=== PATIENT | male | born 1985 | race African-American/Black ===

== ENCOUNTER 2018-02-01 07:50 | Inpatient (IN) ==
[2018-02-01] MEDS: Metoprolol Inj 5 MG/5 ML Vial IV.PUSH SCH ×3 (08:49→09:13)
[2018-02-01 09:00] LABS: Baso # (Auto) 0.1 th/mm3 (0.0-0.2); Baso % (Auto) 0.9 % (0.0-2.0); Eos # (Auto) 0.1 th/mm3 (0.0-0.4); Eos % (Auto) 1.2 % (0.0-4.0); Hematocrit 38.1 % (39.0-51.0); Hemoglobin 13.7 gm/dL (13.0-17.0); Lymph # (Auto) 1.7 th/mm3 (1.0-4.8); Lymph % (Auto) 17.8 % (9.0-44.0); Mean Corpuscular HGB Conc 35.8 % (32.0-36.0); Mean Corpuscular Hemoglobin 30.9 pg (27.0-34.0); Mean Corpuscular Volume 86.2 fL (80.0-100.0); Mean Platelet Volume 9.5 fL (7.0-11.0); Mono # (Auto) 0.6 th/mm3 (0.0-0.9); Mono % (Auto) 5.9 % (0.0-8.0); Neut # (Auto) 7.1 th/mm3 (1.8-7.7); Neut % (Auto) 74.2 % (16.0-70.0); Platelet Count 126 th/mm3 (150-450); Red Blood Count 4.42 mil/mm3 (4.50-5.90); White Blood Count 9.5 th/mm3 (4.0-11.0)
--- NOTE | 2018-02-01 09:03 | ED ---
HPI General Chief complaint: Hypertension Stated complaint: Cold & flu/throat issues/fatigue/Fever complaint Time Seen by Provider: 02/01/18 08:10 Source: patient Mode of arrival: ambulatory Limitations: no limitations History of Present Illness complaint: Weakness and fatigue all over his body Onset (ago): week(s) (4) Severity: moderate Pain Consistency: constant Relieving factors: none Exacerbating factors: none Associated symptoms: Reports chest pain, cough, fever/chills, headaches, malaise , shortness of breath and weakness; Denies nausea/vomiting Treatments prior to arrival: Reports none Related Data Home Medications Medication Instructions Recorded Confirmed No Known Home Medications 02/01/18 02/01/18 Allergies Allergy/AdvReac Type Severity Reaction Status Date / Time No Known Allergies Allergy Mild none Uncoded 02/01/18 08:18 Review of Systems ROS: all other systems reviewed are negative [facility] Social History Social History Substance History: No History of Abuse Smoking Status: Never smoker How Often Do You Have a Drink Containing Alcohol: Monthly or less Recent Travel in [facility] within the Last 8 Weeks: No Recent Out of Country Travel within the Last 8 Weeks: No Immunization History Tetanus Immunization: >5 Years Tetanus Immunization Year if Known: 2012 Exam Const General: cooperative, healthy appearing, comfortable and well developed Orientation: alert, awake and oriented x3 HENMT Head: normal to inspection, normocephalic and atraumatic Eyes Alignment and Position: alignment normal and position abnormal Conjunctivae: conjunctivae normal Sclera: sclerae normal EOM: EOM intact bilaterally Neck Neck: normal visual inspection and full ROM Chest Chest: normal inspection of the chest Resp Effort & Inspection: normal respiratory effort and able to speak in complete sentences Auscultation: clear to auscultation bilaterally Cardio Rate: regular rate Rhythm: regular rhythm Heart Sounds: murmur systolic GI Inspection: normal to inspection Palpation: soft Back/Spine/Pelvis Cervical Spine: cervical ROM normal Thoracic/Lumbar Spine: thoraco-lumbar ROM normal Skin General: no rashes or lesions noted, turgor normal and dry skin Neuro General: alert, awake, oriented x3, moves all extremities and CN's II-XI intact bilaterally Extrem General: normal to inspection and full ROM Psych Appearance: grossly normal Mental Status: mental status grossly normal Speech and Movement: speech and movement normal Mood: congruent mood Affect: anxious affect Attitude: cooperative Thought Process: normal Thought Content: normal Judgment: judgment good Course Initial Documented Vital Signs Temperature 98.3 F 02/01/18 07:58 Pulse Rate 95 H 02/01/18 07:58 Respiratory Rate 16 02/01/18 07:58 Blood Pressure 255/185 H 02/01/18 07:58 Pulse Oximetry 97 02/01/18 07:58 Last Documented Vital Signs Temperature 98.4 F 02/01/18 08:39 Pulse Rate 80 02/01/18 09:35 Respiratory Rate 18 02/01/18 09:35 Blood Pressure 231/167 H 02/01/18 09:35 Pulse Oximetry 98 02/01/18 09:35 Critical Care Time Critical Care Time: Yes Total Critical Care Time: 45 Attestation: Time to perform other separately billable procedures was not included in the critical care time. My time did not include minutes spent treating any other patients simultaneously or on activities that did not directly contribute to the patient's treatment. The services I provided to this patient were to treat and/or prevent clinically significant deterioration due to clinically, the patient does not have hypertensive emergency. He has no altered mental status, no chest pain, no shortness of breath, no sudden peripheral edema. I provided critical care services requiring my management, as noted below: Chart data review, documentation time, medication orders and management, vital sign assessments/reviewing monitor data, ordering and reviewing lab tests, ordering and interpreting/reviewing x-rays and diagnostic studies, care of the patient and discussion of the patient with the admitting physicians Medical Decision Making MDM Narrative Medical decision making narrative: This patient presents complaining of feeling generally poorly for the last month. He states that he has had a cold in the interim with an associated fever but that it is getting better. However, he has continued to feel very poorly. He feels tremulous and fatigued. He has intermittent headache, chest pain, shortness of breath. The patient is unaware of any medical problems. On exam he is noted to be very tremulous. He is also noted to be very hypertensive with an initial blood pressure of 255/185. An IV has been started. He has been given IV Ativan as well as IV metoprolol. Workup has been initiated to rule out end-organ damage. The patient's diastolic blood pressure has come down to about 160 with IV metoprolol. This patient is being admitted to the ICU for hypertensive emergency with renal failure. Medical Screen Exam Complete: Yes Emergency Medical Condition: Yes Differential Diagnosis Differential Diagnosis: My differential diagnosis of hypotension includes but is not limited to acute blood loss, gastroenteritis, medication effect Lab Data Lab results reviewed: Yes I reviewed the patient's lab results. Result diagrams: 02/01/18 08:30 02/01/18 08:30 Lab Results 02/01/18 02/01/18 Range/Units 08:30 08:30 WBC 9.5 (4.0-11.0) th/mm3 RBC 4.42 L (4.50-5.90) mil/mm3 Hgb 13.7 (13.0-17.0) gm/dL Hct 38.1 L (39.0-51.0) % MCV 86.2 (80.0-100.0) fL MCH 30.9 (27.0-34.0) pg MCHC 35.8 (32.0-36.0) % RDW 15.0 (11.6-17.2) % Plt Count 126 L (150-450) th/mm3 MPV 9.5 (7.0-11.0) fL Neut % (Auto) 74.2 H (16.0-70.0) % Lymph % (Auto) 17.8 (9.0-44.0) % Edgar % (Auto) 5.9 (0.0-8.0) % Eos % (Auto) 1.2 (0.0-4.0) % Baso % (Auto) 0.9 (0.0-2.0) % Neut # (Auto) 7.1 (1.8-7.7) th/mm3 Lymph # (Auto) 1.7 (1.0-4.8) th/mm3 Edgar # (Auto) 0.6 (0.0-0.9) th/mm3 Eos # (Auto) 0.1 (0.0-0.4) th/mm3 Baso # (Auto) 0.1 (0.0-0.2) th/mm3 WBC Differential . Differential Comment Auto diff final Sodium 133 L (136-145) meq/L Potassium 2.5 L* (3.5-5.1) meq/L Chloride 95 L (98-107) meq/L Carbon Dioxide 24.7 (21.0-32.0) meq/L Anion Gap 13 (5-15) meq/L BUN 56 H (7-18) mg/dL Creatinine 7.49 H (0.60-1.30) mg/dL Estimated GFR 10 L (>89) mL/min Random Glucose 106 (74-106) mg/dL Calcium 9.5 (8.5-10.1) mg/dL Total Bilirubin 0.9 (0.2-1.0) mg/dL AST 51 H (15-37) U/L ALT 45 (12-78) U/L Alkaline Phosphatase 92 (45-117) U/L Troponin I 0.19 H (0.02-0.05) ng/mL Total Protein 7.7 (6.4-8.2) g/dL Albumin 3.9 (3.4-5.0) g/dL Imaging Data Radiologist's impression: Chest X-Ray 02/01/18 08:29 CONCLUSION: Under aerated with some peribronchial thickening. Inflammatory process is suspected. Head CT 02/01/18 09:03 CONCLUSION: 1. Negative for acute process . ECG Data EKG Prior to Arrival: No Attestation: I personally reviewed and interpreted this ECG as follows: (EKG shows a sinus rhythm with a rate of 84. He has changes compatible with left ventricular hypertrophy.) Discharge Plan Discharge Disposition Patient Disposition: ED Admit(ED Internal Use Only) Discharge Order Discharge Orders: ED Use Only Admit Order (Routine); Ordered 02/01/18 Ordered By: Sienna Sam Discharge Details Diagnosis: Hypertensive emergency, Acute renal failure Physicians Team ED Provider: Sienna Sam Primary Care Provider: Primary Care DarianiKimberly Rxs /Orders / Referrals /Forms Prescriptions: No Action No Known Home Medications RF: 0 Discharge Interventions Interventions: Vital Signs Last Done: 02/01/18 08:07 Status ED Status: Pending Admission
--- NOTE | 2018-02-01 09:18 | XR ---
EXAM DATE: 02/01/2018 8:52 AM EST AGE/SEX: 32 years / Male INDICATIONS: Chest pain x 2 days with cough. CLINICAL DATA: This is the patient's initial encounter. Patient reports that signs and symptoms have been present for 1 day and indicates a pain score of 3/10. MEDICAL/SURGICAL HISTORY: None. None. COMPARISON: No prior exams available for comparison. FINDINGS: Lungs are under aerated some peribronchial thickening both lung bases. Mild prominence the cardiac silhouette. There is no other consolidation, pleural effusion or pneumothorax. CONCLUSION: Under aerated with some peribronchial thickening. Inflammatory process is suspected. Electronically signed by: Chong Rey MD 02/01/2018 9:17 AM EST
[2018-02-01 09:35] LABS: Alanine Aminotransferase 45 U/L (12-78); Albumin 3.9 g/dL (3.4-5.0); Alkaline Phosphatase 92 U/L (45-117); Anion Gap 13 meq/L (5-15); Aspartate Aminotransferase 51 U/L (15-37); Blood Urea Nitrogen 56 mg/dL (7-18); Calcium 9.5 mg/dL (8.5-10.1); Carbon Dioxide 24.7 meq/L (21.0-32.0); Chloride 95 meq/L (98-107); Glomerular Filtration Rate 10 mL/min (>89); Glucose,Random 106 mg/dL (74-106); Sodium 133 meq/L (136-145); Total Protein 7.7 g/dL (6.4-8.2); Troponin I 0.19 ng/mL (0.02-0.05)
[2018-02-01 09:42] LABS: Potassium 2.5 meq/L (3.5-5.1)
--- NOTE | 2018-02-01 09:49 | CT ---
EXAM DATE: 02/01/2018 9:45 AM EST AGE/SEX: 32 years / Male INDICATIONS: Cephalgia, hypertension. CLINICAL DATA: This is the patient's initial encounter. Patient reports that signs and symptoms have been present for 1 week and indicates a pain score of 6/10. MEDICAL/SURGICAL HISTORY: Hypertension. None. RADIATION DOSE: 39.42 CTDI (mGy) COMPARISON: No prior exams available for comparison. TECHNIQUE: CT of the head without contrast. Using automated exposure control and adjustment of the mA and/or kV according to patient size, radiation dose was kept as low as reasonably achievable to ob tain optimal diagnostic quality images. DICOM format image data is available electronically for revi ew and comparison. FINDINGS: Cerebrum: The ventricles are normal for age. No evidence of midline shift, mass lesion, hemorrhage or acute infarction. No extraaxial fluid collections are seen. Posterior Fossa: The cerebellum and brainstem are intact. The 4th ventricle is midline. The cerebe llopontine angle is unremarkable. Extracranial: The visualized portion of the orbits is intact. Skull: The calvaria is intact. No evidence of skull fracture. CONCLUSION: 1. Negative for acute process . Electronically signed by: Chong Rey MD 02/01/2018 9:47 AM EST
[2018-02-01] MEDS ORDERED: Bisacodyl 10 MG Supp RECTAL PRN (10:17)
[2018-02-01] MEDS ORDERED: Morphine Sulfate Inj 2 MG/ML Vial IV.PUSH PRN (10:17)
--- NOTE | 2018-02-01 10:28 | P.HPCC ---
History of Present Illness Service: Critical care medicine Primary Care Physician: No Primary Care Physician Chief Complaint: Malaise History of Present Illness: This is a 32-year-old AA male. Date of admission 02/01/2018. Past medical history includes EtOH and smoking. Patient is on no medications. For the past 2-3 weeks patient has been experiencing generalized malaise including headaches , chest pain, shortness of breath vague abdominal pain. Patient presented to [facility] for further evaluation treatment. Upon arrival, patient had elevated systolic blood pressure in the 260s diastolic in the 180s. Received 3 doses of 2.5 mg of IV metoprolol. EKG revealed sinus tachycardia with significant LVH. 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 He has potassium of 2.5. Creatinine of 7.5. Troponin 0 0.19. Patient is thrombocytopenic. Patient systolic blood pressure is currently 230. He still expressing malaise. We are estimate the patient. Nephrology consult. Echocardiogram and renal ultrasound all currently pending. - Diagnosis (1) Elevated troponin (2) Hyponatremia (3) Hypopotassemia (4) Elevated AST (SGOT) (5) Thrombocytopenia Inpatient Certification: Inpatient certification verified 5 Estimated Total Length of Stay (Days): 5 Plans for Post Hospital Care: Not yet determined Review of Systems Constitutional: Reports body ache(s), Reports fatigue, Reports fever(s), Reports headache(s), Reports weakness, Denies anorexia, Denies chills, Denies weight gain Eyes: Denies blind spots, Denies blurry vision Ears, Nose, Mouth, and Throat: Denies abnormal hearing, Denies sinus pain, Denies tongue swelling Cardiovascular: Reports chest pain, Reports chest pain at rest, Reports shortness of breath, Reports shortness of breath with activity, Denies chest pain with activity Respiratory: Reports shortness of breath, Reports shortness of breath with activity, Denies chest congestion, Denies cough, Denies pain with cough Gastrointestinal: Reports abdominal pain, Reports nausea, Denies belching, Denies vomiting Genitourinary: Denies urinary frequency, Denies urinary hesitancy Musculoskeletal: Denies abnormal walking, Denies back pain, Denies neck pain Skin/Breast: Denies skin ulcer, Denies sores, Denies stretch mcwilliams Neurologic: Reports dizziness, Reports headache(s), Denies abnormal hearing, Denies abnormal movements, Denies localized weakness, Denies loss of vision Psychiatric: Reports anxiety, Denies abnormal sleep pattern, Denies confusion Endocrine: Denies cold intolerance, Denies excessive sweating Hematologic/Lymphatic: Denies easy bleeding, Denies easy bruising Allergic/Immunologic: Denies GI upset with certain foods PMFSH - Medical History Medical History: Medical History (Last Updated 02/01/18 @ 10:52 by Angel Carbajal MD) No significant past medical history - Surgical History Surgical History: Surgical History (Last Updated 02/01/18 @ 10:52 by Angel Carbajal MD) No significant past surgical history (Acute) - Family History Family History: Family History (Last Updated 02/01/18 @ 10:52 by Angel Carbajal MD) Grandparent Hypertension - Social History I have reviewed the patient's Social History: Yes - Tobacco History Second Hand Smoke Exposure: No Tobacco Use In Past 30 Days: No Smoking Status: Never smoker - Alcohol History How Often Do You Have a Drink Containing Alcohol: Monthly or less - Substance Use History Substance History: No History of Abuse - Travel History History of Recent Travel: No Recent Travel in the [place] Within the Last 8 Weeks: No Recent Travel Out of the Country Within the Last 8 Weeks: No - Immunization History Tetanus Immunization: >5 Years Tetanus Immunization Year if Known: 2012 Medications and Allergies Active Medications: Active Medications Acetaminophen (Tylenol) 650 mg PO Q6H PRN PRN Reason: FEVER Hydrocodone Bitart/Acetaminophen ([place] 5/325) 1 tab PO Q4H PRN PRN Reason: PAIN SCALE 1 TO 5 Al Hydroxide/Mg Hydroxide (Milk Of Magnangela Liq) 30 ml PO Q12H PRN PRN Reason: Mild Constipation Albuterol (Albuterol Neb (Sangeeta)) 2.5 mg NEB Q2HR NEB PRN PRN Reason: SHORTNESS OF BREATH/WHEEZING Albuterol (Duoneb Neb (Prn)) 1 ampul NEB Q4HR NEB SANGEETA Bisacodyl (Dulcolax Supp) 10 mg RECTAL DAILY PRN PRN Reason: SEVERE CONSITIPATION Chlorhexidine Gluconate (Chlorhexidine 2% Cloth) 3 pack TOPICAL DAILY@0400 PRN PRN Reason: Extra cloth needed Stop: 02/07/18 03:59 Chlorhexidine Gluconate (Chlorhexidine 2% Cloth) 3 pack TOPICAL DAILY@0400 SANGEETA Stop: 02/07/18 03:59 Hydralazine HCl (Apresoline Inj) 10 mg IV.PUSH Q1H PRN PRN Reason: SYS BP GREATER THAN 180 MMHG Sodium Chloride (Ns Inj) 1,000 mls @ 84 mls/hr IV.CONT .[id number] [facility] Clevidipine (Cleviprex Inj) 25 mg in 50 mls @ 2 mls/hr IV.CONT TITRATE PRN; Protocol PRN Reason: Per protocol Labetalol HCl (Trandate Inj) 10 mg IV.PUSH Q1H PRN PRN Reason: SBP>180, DBP>100, HR>65 Lactulose (Lactulose Liq) 30 ml PO DAILY PRN PRN Reason: SEVERE CONSITIPATION Morphine Sulfate (Morphine Inj) 2 mg IV.PUSH Q2H PRN PRN Reason: PAIN SCALE 6 TO 10 Nitroglycerin (Nitro-Bid 2% Oint) 1 inch TOPICAL Q6HR PRN PRN Reason: SYS BP GREATER THAN 180 MMHG Ondansetron HCl (Zofran Inj) 4 mg IV.PUSH Q6H PRN PRN Reason: NAUSEA OR VOMITING Pantoprazole Sodium (Protonix) 40 mg PO DAILY [facility] Potassium Chloride (Klor-Con 10) 30 meq PO ONCE ONE Stop: 02/01/18 10:28 Senna/Docusate Sodium (Risa-Colace) 1 tab PO BID [facility] Sennosides (Senokot) 17.2 mg PO Q12H PRN PRN Reason: Moderate Constipation Sodium Chloride (Ns Flush) 2 ml IV.FLUSH UNSCH PRN PRN Reason: FLUSH AFTER USING IV ACCESS Last Admin: 02/01/18 09:15 Dose: 2 ml Sodium Chloride (Ns Flush) 2 ml IV.FLUSH PRN PRN PRN Reason: FLUSH AFTER USING IV ACCESS Sodium Chloride (Ns Flush) 2 ml IV.FLUSH BID [facility] Allergies Allergy/AdvReac Type Severity Reaction Status Date / Time No Known Allergies Allergy Mild none Uncoded 02/01/18 08:18 Home Medications Medication Instructions Recorded Confirmed Type No Known Home Medications 02/01/18 02/01/18 History Results - Labs CBC & Chem 7: 02/01/18 08:30 02/01/18 08:30 Labs: Short CBC 02/01/18 Range/Units 08:30 WBC 9.5 (4.0-11.0) th/mm3 Hgb 13.7 (13.0-17.0) gm/dL Hct 38.1 L (39.0-51.0) % Plt Count 126 L (150-450) th/mm3 BMP 02/01/18 08:30 Sodium 133 L Potassium 2.5 L* Chloride 95 L Carbon Dioxide 24.7 BUN 56 H Creatinine 7.49 H Calcium 9.5 Cardiac Enzymes 02/01/18 Range/Units 08:30 Troponin I 0.19 H (0.02-0.05) ng/mL Liver Function 02/01/18 Range/Units 08:30 Total Bilirubin 0.9 (0.2-1.0) mg/dL AST 51 H (15-37) U/L ALT 45 (12-78) U/L Alkaline Phosphatase 92 (45-117) U/L Albumin 3.9 (3.4-5.0) g/dL - Imaging Impressions Chest X-Ray 02/01/18 08:29 CONCLUSION: Under aerated with some peribronchial thickening. Inflammatory process is suspected. Head CT 02/01/18 09:03 CONCLUSION: 1. Negative for acute process . Exam Vital signs: Vital Signs 02/01/18 07:58 02/01/18 08:07 02/01/18 08:36 Temperature 98.3 F Pulse Rate 95 H 98 H Respiratory Rate 16 18 Blood Pressure 255/185 H 263/176 H Pulse Oximetry 97 100 99 02/01/18 08:37 02/01/18 08:39 02/01/18 09:00 Temperature 98.4 F Pulse Rate 92 H 96 H 84 Respiratory Rate 18 18 Blood Pressure 261/167 H 253/179 H Pulse Oximetry 99 98 02/01/18 09:13 02/01/18 09:35 Temperature Pulse Rate 87 80 Respiratory Rate 18 18 Blood Pressure 240/175 H 231/167 H Pulse Oximetry 99 98 Intake & Output 01/31/18 02/01/18 02/01/18 18:59 06:59 18:59 Output Total 150 / 150 Balance -150 / -150 Weight 74.843 kg Output: Urine 150 / 150 - Constitutional no acute distress - Routine HEENT Exam Head: Present: normocephalic, atraumatic Eye: Present: EOMI, PERRL, normal accommodation ENT: Present: mucous membranes moist - Routine Neck Exam Present: supple, full ROM. Absent: JVD, carotid bruit - Routine Chest/Breast/Axilla Exam Chest wall: Absent: tenderness Breast: Absent: tenderness Axillae: Absent: lymphadenopathy - Routine Respiratory Exam Present: CTA bilaterally. Absent: accessory muscle use, rhonchi, wheezes, crackles - Routine Cardiovascular Exam Present: S1, S2, tachycardia. Absent: murmur - Routine Abdominal Exam Present: soft, normoactive bowel sounds. Absent: tenderness, guarding - Routine Extremities Exam Absent: cyanosis, clubbing, edema - Routine Skin Exam Present: intact. Absent: erythema - Routine Neurological Exam Present: alert, oriented X3, CN II-XII intact. Absent: sensory deficit, motor deficit Septic Shock Reassessment Septic shock perfusion: reassessment completed Caprini VTE Risk Assessment Caprini VTE Risk Assessment: No/Low Risk (score <= 1) Caprini Risk Assessment Model: Point Value = 1 Point Value = 2 Point Value = 3 Point Value = 5 Age 41-60 Minor surgery BMI > 25 kg/m2 Swollen legs Varicose veins or History of unexplained or recurrent spontaneous Oral contraceptives or hormone replacement Sepsis (< 1 month) Serious lung disease, including pneumonia (< 1 month) Abnormal pulmonary function Acute myocardial infarction Congestive heart failure (< 1 month) History of inflammatory bowel disease Medical patient at bed rest Age 61-74 Arthroscopic surgery Major open surgery (> 45 min) Laparoscopic surgery (> 45 min) Malignancy Confined to bed (> 72 hours) Immobilizing plaster cast Central venous access Age >= 75 History of VTE Family history of VTE Factor V Leiden Prothrombin [id number] Lupus anticoagulant Anticardiolipin antibodies Elevated serum homocysteine Heparin-induced thrombocytopenia Other congenital or acquired thrombophilia Stroke (< 1 month) Elective arthroplasty Hip, pelvis, or leg fracture Acute spinal cord injury (< 1 month) Prophylaxis Regimen: Total Risk Factor Score Risk Level Prophylaxis Regimen 0-1 Low Early ambulation 2 Moderate Order ONE of the following: *Sequential Compression Device (SCD) *Heparin 5000 units SQ BID 3-4 Higher Order ONE of the following medications: *Heparin 5000 units SQ TID *Enoxaparin/Lovenox 40 mg SQ daily (WT < 150 kg, CrCl > 30 mL/min) *Enoxaparin/Lovenox 30 mg SQ daily (WT < 150 kg, CrCl > 10-29 mL/min) *Enoxaparin/Lovenox 30 mg SQ BID (WT < 150 kg, CrCl > 30 mL/min) AND/OR *Sequential Compression Device (SCD) 5 or more Highest Order ONE of the following medications: *Heparin 5000 units SQ TID (Preferred with Epidurals) *Enoxaparin/Lovenox 40 mg SQ daily (WT < 150 kg, CrCl > 30 mL/min) *Enoxaparin/Lovenox 30 mg SQ daily (WT < 150 kg, CrCl > 10-29 mL/min) *Enoxaparin/Lovenox 30 mg SQ BID (WT < 150 kg, CrCl > 30 mL/min) AND *Sequential Compression Device (SCD) Assessment and Plan - Problem List (1) Elevated troponin Code(s): R74.8 - Abnormal levels of other serum enzymes Status: Acute (2) Hyponatremia Code(s): E87.1 - Hypo-osmolality and hyponatremia Status: Acute (3) Hypopotassemia Code(s): E87.6 - Hypokalemia Status: Acute (4) Elevated AST (SGOT) Code(s): R74.0 - Nonspecific elevation of levels of transaminase and lactic acid dehydrogenase [LDH] Status: Acute (5) Thrombocytopenia Code(s): D69.6 - Thrombocytopenia, unspecified Status: Acute - Assessment and Plan Plan: Neuro/Psych: Acetaminophen 650 mg p.o. every 6 hours as needed fever Hydrocodone/acetaminophen 5/51 tablet every 4 hours as needed pain 1 through 5 Morphine sulfate 2 mg IV every 2 hours as needed pain 6 through 10 Drug toxicology screen pending CT brain revealed no acute findings CV: Hypertensive emergency Elevated troponin Currently on as needed labetalol, hydralazine Nitropaste to keep systolic blood pressure less than 180, diastolic less than 100 Clevidipine drip as indicated Serial troponins. Cycle until downtrending. Currently 0.19. Likely secondary to hypertensive crisis/strain EKG revealed sinus tachycardia with LVH. Echocardiogram ordered Renal ultrasound rule out renal artery stenosis Resp: Nasal cannula to maintain saturations greater than or equal to 90% Incentive spirometry while awake Albuterol/ipratropium aerosols every 4 hours with albuterol aerosols every 2 hours as needed dyspnea Chest x-ray revealed cardiomegaly but no significant pulmonary findings GI: Elevated AST Renal/cardiac diet Pantoprazole for GI prophylaxis Docusate sodium/senna 1 tablet twice daily for bowel regimen : Straight catheterization as needed Endo: Sliding scale insulin Accu-Cheks to maintain euglycemia aspart insulin Check TSH and cortisol Renal: Acute kidney injury -unknown baseline Check renal ultrasound and urine eosinophils and sodium and creatinine Avoid nephrotoxic medication Monitor urine output Accurate I's and O's Nephrology consultation Pheochromocytoma workup per nephrology. Including metanephrines Renin, aldosterone pending Heme: Thrombocytopenia Monitor CBC daily. Follow trends. No indication for transfusion of blood products at this time ID: Blood cultures x2, influenza a and B ordered Monitor for signs of hematology infection FEN: Hyponatremia Hypopotassemia Received 20 mEq potassium chloride. Recheck potassium 1800 hrs. tonight. Replace electrolytes as clinically indicated Magnesium and phosphorus pending MSK: Out of bed/PT evaluate and treat Access -Utilize peripheral IV. Central line if indicated Prophylaxis -GI -pantoprazole -DVT-SCD/holding pharmacological prophylaxis with high blood pressure. Resume likely tomorrow Critical care time 35 minutes
[2018-02-01 10:29] LABS: Amphetamine Screen,Urine Neg (Neg); Barbiturate Screen,Urine Neg (Neg); Cannabinoid Screen,Urine Neg (Neg); Cocaine Screen,Urine Neg (Neg)
[2018-02-01 10:32] LABS: Opiate Screen,Urine Neg (Neg)
[2018-02-01] MEDS: Sod Chloride 0.9% Inj 1,000 ML IV.CONT SCH ×2 (11:13→22:33)
[2018-02-01 11:18] LABS: Sodium,Urine Random 67 meq/L
[2018-02-01 11:26] LABS: Magnesium 2.4 mg/dL (1.5-2.5); Phosphorus 4.7 mg/dL (2.5-4.9)
[2018-02-01 11:27] LABS: Creatinine,Urine Random 127 mg/dL (27-300)
[2018-02-01] MEDS: Clevidipine Inj 25 MG/50 ML VIAL IV.CONT PRN ×3 (11:51→21:19)
--- NOTE | 2018-02-01 12:51 | P.CONNP ---
<Gelacio Rosenbaum - Last Filed: 02/01/18 12:33> History of Present Illness Reason for Consult: Acute Renal Failure Primary Care Provider: No Primary Care Physician Chief Complaint: Malaise History of Present Illness: Patient is a 32 year old male who presented to the ED today for chest pain, shortness of breath, abdominal pain. On arrival patient was hypertensive with systolic blood pressure in the 230s and tachycardic. His potassium was 2.5. His Creatinine was 7.5 and BUN 56. Patient stated he is unaware of any prior medical issues. Patient stated he smoked marijuana and drank about eight beers daily until Thanksgi and then stopped. Patient denies any illicit drug use. Patient stated he is unaware of any family medical history of kidney issues. Patient denies any NSAID use. Patient reports a decrease in appetite the last several months. Patient denies nausea/vomiting/diarrhea. Discussed the possibility of dialysis with the patient. Will wait 1-2 days to monitor for improvement. Renal ultrasound and additional labs pending. Review of Systems All other systems reviewed negative except as stated in HPI PMFSH - Medical History Medical History: Medical History (Last Reviewed 02/01/18 @ 11:40 by Maria Eugenia Ward) No significant past medical history - Surgical History Surgical History: Surgical History (Last Reviewed 02/01/18 @ 11:40 by Maria Eugenia Ward) No significant past surgical history (Acute) - Family History Family History: Family History (Last Updated 02/01/18 @ 10:52 by Angel Carbajal MD) Grandparent Hypertension - Tobacco History Second Hand Smoke Exposure: No Tobacco Use In Past 30 Days: No Smoking Status: Never smoker - Alcohol History How Often Do You Have a Drink Containing Alcohol: Monthly or less - Substance Use History Substance History: No History of Abuse - Travel History History of Recent Travel: No Recent Travel in the [place] Within the Last 8 Weeks: No Recent Travel Out of the Country Within the Last 8 Weeks: No - Immunization History Tetanus Immunization: >5 Years Tetanus Immunization Year if Known: 2012 Medications and Allergies Allergies Allergy/AdvReac Type Severity Reaction Status Date / Time No Known Allergies Allergy Mild none Uncoded 02/01/18 08:18 Home Medications Medication Instructions Recorded Confirmed Type No Known Home Medications 02/01/18 02/01/18 History Active Medications: Active Medications Acetaminophen (Tylenol) 650 mg PO Q6H PRN PRN Reason: FEVER Hydrocodone Bitart/Acetaminophen ([place] 5/325) 1 tab PO Q4H PRN PRN Reason: PAIN SCALE 1 TO 5 Al Hydroxide/Mg Hydroxide (Milk Of Magn[place] Liq) 30 ml PO Q12H PRN PRN Reason: Mild Constipation Albuterol (Albuterol Neb (Prn)) 2.5 mg NEB Q2HR NEB PRN PRN Reason: SHORTNESS OF BREATH/WHEEZING Albuterol (Duoneb Neb (Sangeeta)) 1 ampul NEB Q4HR NEB [facility] Last Admin: 02/01/18 12:06 Dose: 1 ampul Bisacodyl (Dulcolax Supp) 10 mg RECTAL DAILY PRN PRN Reason: SEVERE CONSITIPATION Chlorhexidine Gluconate (Chlorhexidine 2% Cloth) 3 pack TOPICAL DAILY@0400 PRN PRN Reason: Extra cloth needed Stop: 02/07/18 03:59 Chlorhexidine Gluconate (Chlorhexidine 2% Cloth) 3 pack TOPICAL DAILY@0400 [facility] Stop: 02/07/18 03:59 Hydralazine HCl (Apresoline Inj) 10 mg IV.PUSH Q1H PRN PRN Reason: SYS BP GREATER THAN 180 MMHG Sodium Chloride (Ns Inj) 1,000 mls @ 84 mls/hr IV.CONT .[id number] [facility] Last Admin: 02/01/18 11:13 Dose: 84 mls/hr Clevidipine (Cleviprex Inj) 25 mg in 50 mls @ 2 mls/hr IV.CONT TITRATE PRN; Protocol PRN Reason: Per protocol Last Titration: 02/01/18 12:31 Dose: 10.5 mg/hr, 21 mls/hr Labetalol HCl (Trandate Inj) 10 mg IV.PUSH Q1H PRN PRN Reason: SBP>180, DBP>100, HR>65 Lactulose (Lactulose Liq) 30 ml PO DAILY PRN PRN Reason: SEVERE CONSITIPATION Morphine Sulfate (Morphine Inj) 2 mg IV.PUSH Q2H PRN PRN Reason: PAIN SCALE 6 TO 10 Nitroglycerin (Nitro-Bid 2% Oint) 1 inch TOPICAL Q6HR PRN PRN Reason: SYS BP GREATER THAN 180 MMHG Ondansetron HCl (Zofran Inj) 4 mg IV.PUSH Q6H PRN PRN Reason: NAUSEA OR VOMITING Pantoprazole Sodium (Protonix) 40 mg PO DAILY [facility] Senna/Docusate Sodium (Risa-Colace) 1 tab PO BID [facility] Sennosides (Senokot) 17.2 mg PO Q12H PRN PRN Reason: Moderate Constipation Sodium Chloride (Ns Flush) 2 ml IV.FLUSH PRN PRN PRN Reason: FLUSH AFTER USING IV ACCESS Sodium Chloride (Ns Flush) 2 ml IV.FLUSH BID [facility] Exam Vital signs: Vital Signs 02/01/18 07:58 02/01/18 08:07 02/01/18 08:36 Temperature 98.3 F Pulse Rate 95 H 98 H Respiratory Rate 16 18 Blood Pressure 255/185 H 263/176 H Pulse Oximetry 97 100 99 02/01/18 08:37 02/01/18 08:39 02/01/18 09:00 Temperature 98.4 F Pulse Rate 92 H 96 H 84 Respiratory Rate 18 18 Blood Pressure 261/167 H 253/179 H Pulse Oximetry 99 98 02/01/18 09:13 02/01/18 09:35 02/01/18 11:19 Temperature Pulse Rate 87 80 88 Respiratory Rate 18 18 Blood Pressure 240/175 H 231/167 H Pulse Oximetry 99 98 02/01/18 11:22 02/01/18 11:52 02/01/18 11:55 Temperature Pulse Rate 82 82 Respiratory Rate 18 18 Blood Pressure 243/176 H 227/161 H Pulse Oximetry 98 95 98 02/01/18 11:59 02/01/18 12:03 02/01/18 12:06 Temperature Pulse Rate 83 86 Respiratory Rate Blood Pressure 238/166 H 231/157 H 221/147 H Pulse Oximetry 02/01/18 12:07 02/01/18 12:08 02/01/18 12:11 Temperature Pulse Rate 98 H 95 H 96 H Respiratory Rate Blood Pressure 212/136 H 221/141 H 208/127 H Pulse Oximetry 02/01/18 12:12 02/01/18 12:15 02/01/18 12:17 Temperature Pulse Rate 96 H 96 H 94 H Respiratory Rate 18 Blood Pressure 197/124 H 186/112 H 162/101 H Pulse Oximetry 100 02/01/18 12:18 02/01/18 12:21 02/01/18 12:26 Temperature Pulse Rate 97 H Respiratory Rate Blood Pressure 169/103 H 156/91 H 176/99 H Pulse Oximetry 02/01/18 12:30 Temperature Pulse Rate Respiratory Rate Blood Pressure 163/92 H Pulse Oximetry Intake & Output 01/31/18 02/01/18 02/01/18 18:59 06:59 18:59 Output Total 150 / 150 Balance -150 / -150 Weight 74.843 kg Output: Urine 150 / 150 - Constitutional no acute distress - Routine HEENT Exam Head: Present: normocephalic Eye: Present: EOMI, PERRL ENT: Present: dentition normal - Routine Neck Exam Present: trachea midline. Absent: tracheal deviation - Routine Respiratory Exam Present: CTA bilaterally. Absent: accessory muscle use - Routine Cardiovascular Exam Present: RRR. Absent: murmur - Routine Abdominal Exam Present: soft, normoactive bowel sounds. Absent: tenderness - Routine Extremities Exam Present: pulses intact, normal capillary refill. Absent: edema - Routine Skin Exam Present: intact - Routine Neurological Exam Present: alert, oriented X3 Results - Lab Results 02/01/18 08:30 02/01/18 08:30 Most recent lab results Calcium 9.5 mg/dL (8.5-10.1) 02/01/18 08:30 Phosphorus 4.7 mg/dL (2.5-4.9) 02/01/18 10:45 Magnesium 2.4 mg/dL (1.5-2.5) 02/01/18 10:45 Assessment and Plan - Assessment (1) Acute renal failure Code(s): N17.9 - Acute kidney failure, unspecified Status: Acute Plan: Acute renal failure etiology is being investigated. We have no baseline lab work for the patient. Patient could have underlying Chronic Kidney Disease. Hypertensive crisis could be due to renal failure or acute renal failure could be due to malignant hypertension. Discussed the possibility of dialysis with the patient. Will wait 1-2 days to monitor for improvement. Renal ultrasound is pending. Ordered UA and additional lab work. Avoid nephrotoxic agents. Monitor fluid and electrolytes. (2) Hypopotassemia Code(s): E87.6 - Hypokalemia Status: Acute Plan: Patient given Potassium supplement in ED. Monitor for improvement. (3) Hypertensive emergency Code(s): I16.1 - Hypertensive emergency Status: Acute Plan: Patient given IVP Metoprolol in the ED. Cleviprex ordered. BP improved but still hypertensive. Monitor BP. <Deejay Whitten - Last Filed: 02/01/18 19:08> History of Present Illness Primary Care Provider: No Primary Care Physician [facility] - Medical History Medical History: Medical History (Last Reviewed 02/01/18 @ 11:40 by Maria Eugenia Ward) No significant past medical history - Surgical History Surgical History: Surgical History (Last Reviewed 02/01/18 @ 11:40 by Maria Eugenia Ward) No significant past surgical history (Acute) - Family History Family History: Family History (Last Updated 02/01/18 @ 10:52 by Angel Carbajal MD) Grandparent Hypertension Medications and Allergies Active Medications: Active Medications Acetaminophen (Tylenol) 650 mg PO Q6H PRN PRN Reason: FEVER Hydrocodone Bitart/Acetaminophen ([place] 5/325) 1 tab PO Q4H PRN PRN Reason: PAIN SCALE 1 TO 5 Al Hydroxide/Mg Hydroxide (Milk Of [place]) 30 ml PO Q12H PRN PRN Reason: Mild Constipation Albuterol (Albuterol Neb (Prn)) 2.5 mg NEB Q2HR NEB PRN PRN Reason: SHORTNESS OF BREATH/WHEEZING Albuterol (Duoneb Neb (Sangeeta)) 1 ampul NEB Q4HR NEB [facility] Last Admin: 02/01/18 12:06 Dose: 1 ampul Bisacodyl (Dulcolax Supp) 10 mg RECTAL DAILY PRN PRN Reason: SEVERE CONSITIPATION Chlorhexidine Gluconate (Chlorhexidine 2% Cloth) 3 pack TOPICAL DAILY@0400 PRN PRN Reason: Extra cloth needed Stop: 02/07/18 03:59 Chlorhexidine Gluconate (Chlorhexidine 2% Cloth) 3 pack TOPICAL DAILY@0400 [facility] Stop: 02/07/18 03:59 Hydralazine HCl (Apresoline Inj) 10 mg IV.PUSH Q1H PRN PRN Reason: SYS BP GREATER THAN 180 MMHG Sodium Chloride (Ns Inj) 1,000 mls @ 84 mls/hr IV.CONT .[id number] [facility] Last Infusion: 02/01/18 14:11 Dose: Infused Clevidipine (Cleviprex Inj) 25 mg in 50 mls @ 2 mls/hr IV.CONT TITRATE PRN; Protocol PRN Reason: Per protocol Last Titration: 02/01/18 16:35 Dose: 0 mg/hr, 0 mls/hr Labetalol HCl (Trandate Inj) 10 mg IV.PUSH Q1H PRN PRN Reason: SBP>180, DBP>100, HR>65 Lactulose (Lactulose Liq) 30 ml PO DAILY PRN PRN Reason: SEVERE CONSITIPATION Morphine Sulfate (Morphine Inj) 2 mg IV.PUSH Q2H PRN PRN Reason: PAIN SCALE 6 TO 10 Nitroglycerin (Nitro-Bid 2% Oint) 1 inch TOPICAL Q6HR PRN PRN Reason: SYS BP GREATER THAN 180 MMHG Ondansetron HCl (Zofran Inj) 4 mg IV.PUSH Q6H PRN PRN Reason: NAUSEA OR VOMITING Pantoprazole Sodium (Protonix) 40 mg PO DAILY [facility] Senna/Docusate Sodium (Risa-Colace) 1 tab PO BID [facility] Sennosides (Senokot) 17.2 mg PO Q12H PRN PRN Reason: Moderate Constipation Sodium Chloride (Ns Flush) 2 ml IV.FLUSH PRN PRN PRN Reason: FLUSH AFTER USING IV ACCESS Sodium Chloride (Ns Flush) 2 ml IV.FLUSH BID [facility] Exam Vital signs: Vital Signs 02/01/18 07:58 02/01/18 08:07 02/01/18 08:36 Temperature 98.3 F Pulse Rate 95 H 98 H Respiratory Rate 16 18 Blood Pressure 255/185 H 263/176 H Pulse Oximetry 97 100 99 02/01/18 08:37 02/01/18 08:39 02/01/18 09:00 Temperature 98.4 F Pulse Rate 92 H 96 H 84 Respiratory Rate 18 18 Blood Pressure 261/167 H 253/179 H Pulse Oximetry 99 98 02/01/18 09:13 02/01/18 09:35 02/01/18 11:19 Temperature Pulse Rate 87 80 88 Respiratory Rate 18 18 Blood Pressure 240/175 H 231/167 H Pulse Oximetry 99 98 02/01/18 11:22 02/01/18 11:52 02/01/18 11:55 Temperature Pulse Rate 82 82 Respiratory Rate 18 18 Blood Pressure 243/176 H 227/161 H Pulse Oximetry 98 95 98 02/01/18 11:59 02/01/18 12:03 02/01/18 12:06 Temperature Pulse Rate 83 86 Respiratory Rate Blood Pressure 238/166 H 231/157 H 221/147 H Pulse Oximetry 02/01/18 12:07 02/01/18 12:08 02/01/18 12:11 Temperature Pulse Rate 98 H 95 H 96 H Respiratory Rate Blood Pressure 212/136 H 221/141 H 208/127 H Pulse Oximetry 02/01/18 12:12 02/01/18 12:15 02/01/18 12:17 Temperature Pulse Rate 96 H 96 H 94 H Respiratory Rate 18 Blood Pressure 197/124 H 186/112 H 162/101 H Pulse Oximetry 100 02/01/18 12:18 02/01/18 12:21 02/01/18 12:26 Temperature Pulse Rate 97 H Respiratory Rate Blood Pressure 169/103 H 156/91 H 176/99 H Pulse Oximetry 02/01/18 12:30 02/01/18 12:35 02/01/18 15:00 Temperature 99 F Pulse Rate 99 H Respiratory Rate 23 Blood Pressure 163/92 H 158/91 H 164/93 H Pulse Oximetry 100 02/01/18 16:00 02/01/18 16:41 02/01/18 17:00 Temperature Pulse Rate 100 H 92 H 92 H Respiratory Rate 23 18 26 H Blood Pressure 155/94 H 175/115 H Pulse Oximetry 99 99 02/01/18 17:15 02/01/18 17:30 02/01/18 17:45 Temperature Pulse Rate 89 90 87 Respiratory Rate 20 21 28 H Blood Pressure 189/123 H 189/119 H 191/125 H Pulse Oximetry 100 100 100 02/01/18 18:00 Temperature Pulse Rate 88 Respiratory Rate 33 H Blood Pressure 179/118 H Pulse Oximetry 100 Intake & Output 02/01/18 02/01/18 02/02/18 06:59 18:59 06:59 Intake Total 600 / 600 Output Total 550 / 550 Balance 50 / 50 Weight 67.1 kg Intake: IV 350 / 350 Cleviprex Inj 25 mg In 50 ml @ 50 / 50 1 MG/HR 2 mls/hr IV.CONT TITRATE PRN Rx#:[id number] NS Inj 1,000 ML @ 84 mls/hr IV. 300 / 300 CONT .[id number] [facility] Rx#:[id number] Oral 250 / 250 Output: Urine 550 / 550 Other: Weight On Admission 67.1 kg Results - Lab Results 02/01/18 08:30 02/01/18 08:30 Most recent lab results Calcium 9.5 mg/dL (8.5-10.1) 02/01/18 08:30 Phosphorus 4.7 mg/dL (2.5-4.9) 02/01/18 10:45 Magnesium 2.4 mg/dL (1.5-2.5) 02/01/18 10:45 Assessment and Plan - Assessment (1) Acute renal failure Code(s): N17.9 - Acute kidney failure, unspecified Status: Acute (2) Hypopotassemia Code(s): E87.6 - Hypokalemia Status: Acute (3) Hypertensive emergency Code(s): I16.1 - Hypertensive emergency Status: Acute - Attending Attestation patient was seen and examined. Baseline renal function is not known, he does have heavy proteinuria, but also has large blood on dipstick, but only 2 RBCs. Obtain CPK to rule out rhabdomyolysis. However, he does have uremic odor, I feel that we are dealing with undiagnosed CKD which has now reached ESRD. 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 Serologies will be ordered. If no improvement in renal function, he will need dialysis. Of course, malignant hypertension is in the differential. Secondary causes of hypertension to be considered, I have ordered Aldosterone/ PRA ratio and plasma fractionated metanephrines. <Gelacio Rosenbaum - Last Filed: 02/01/18 12:33> (1) Acute renal failure Qualifiers: Acute renal failure type: unspecified Qualified Code(s): N17.9 - Acute kidney failure, unspecified <Deejay Whitten - Last Filed: 02/01/18 19:08> (1) Acute renal failure Qualifiers: Acute renal failure type: unspecified Qualified Code(s): N17.9 - Acute kidney failure, unspecified
--- NOTE | 2018-02-01 13:07 | US ---
EXAM DATE: 02/01/2018 1:03 PM EST AGE/SEX: 32 years / Male INDICATIONS: Increased BUN/Creatinine. CLINICAL DATA: This is the patient's initial encounter. Patient reports that signs and symptoms have been present for 1 day and indicates a pain score of 0/10. MEDICAL/SURGICAL HISTORY: Hypertension. None. COMPARISON: No prior exams available for comparison. MEASUREMENTS: Right Kidney:__9.4 x 4.3 x 5.9 cm Left Kidney:__8.5 x 4.9 x 4.4 cm FINDINGS: Right Kidney: Increased echogenicity. No mass or hydronephrosis. Left Kidney: Increased echogenicity. No mass or hydronephrosis. Bladder: Within normal limits given the degree of distension. Other: None. CONCLUSION: 1. No hydronephrosis. 2. Mildly increased echogenicity indicate medical renal disease. Electronically signed by: Gio Regalado MD 02/01/2018 1:06 PM EST
[2018-02-01 14:44] LABS: Bilirubin,Urine Negative (Negative); Clarity,Urine Clear (Clear); Color,Urine Yellow (Yellw/Straw); Glucose,Urine (UA) Negative (Negative); Leukocyte Esterase,Urine Negative (Negative); Nitrite,Urine Negative (Negative); Specific Gravity,Urine 1.014 (1.002-1.035)
[2018-02-01 16:06] LABS: Troponin I 0.21 ng/mL (0.02-0.05)
--- NOTE | 2018-02-01 17:02 | ECHRPT ---
Indication: HEART FAILURE CONCLUSIONS Normal left ventricular size. Moderate concentric left ventricular hypertrophy. The left ventricular systolic function is normal with an estimated ejection fraction in the range of 55-60%. The left atrial size is mildly dilated. [id number] mitral valve regurgitation. There is trace tricuspid valve regurgitation. The estimated pulmonary arterial pressure is 32 mmHg. BP: / HR: Rhythm: MEASUREMENTS (Male / Female) Normal Values Technical Quality: 2D ECHO LV Diastolic Diameter PLAX 4.6 cm 4.2 - 5.9 / 3.9 - 5.3 cm LV Systolic Diameter PLAX 3.2 cm IVS Diastolic Thickness 2.0 cm 0.6 - 1.0 / 0.6 - 0.9 cm LVPW Diastolic Thickness 2.0 cm 0.6 - 1.0 / 0.6 - 0.9 cm LV Relative Wall Thickness 0.9 RV Internal Dim ED PLAX 1.9 cm LVOT Diameter 1.9 cm Aortic Root Diameter 3.3 cm LA Systolic Diameter LX 4.4 cm 3.0 - 4.0 / 2.7 - 3.8 cm LV Ejection Fraction MOD 4C 53.0 % LV Ejection Fraction 4C AL 53.1 % M-MODE AV Cusp Separation MM 2.0 cm DOPPLER AV Peak Velocity 182.0 cm/s AV Peak Gradient 13.2 mmHg LVOT Peak Velocity 165.0 cm/s LVOT Peak Gradient 10.9 mmHg AV Area Cont Eq pk 2.6 cm Mitral E Point Velocity 112.0 cm/s Mitral A Point Velocity 63.2 cm/s Mitral E to A Ratio 1.8 LV E' Lateral Velocity 6.2 cm/s Mitral E to LV E' Lateral Ratio 17.9 LV E' Septal Velocity 4.3 cm/s Mitral E to LV E' Septal Ratio 26.1 TR Peak Velocity 232.0 cm/s TR Peak Gradient 21.5 mmHg Right Atrial Pressure 10.0 mmHg Pulmonary Artery Systolic Pressu 31.5 mmHg Right Ventricular Systolic Press 31.5 mmHg PV Peak Velocity 136.0 cm/s PV Peak Gradient 7.4 mmHg FINDINGS LEFT VENTRICLE Normal left ventricular size. Moderate concentric left ventricular hypertrophy. The left ventricular systolic function is normal with an estimated ejection fraction in the range of 55-60%. RIGHT VENTRICLE Normal right ventricular size and systolic function. LEFT ATRIUM The left atrial size is mildly dilated. RIGHT ATRIUM The right atrial size is normal. ATRIAL SEPTUM Normal atrial septal thickness without atrial level shunting by limited color doppler interrogation. AORTA The aortic root and proximal ascending aorta are normal in size on limited imaging. MITRAL VALVE [id number] mitral valve regurgitation. AORTIC VALVE Trileaflet aortic valve. No aortic valve stenosis or regurgitation. TRICUSPID VALVE There is trace tricuspid valve regurgitation. The estimated pulmonary arterial pressure is 32 mmHg. PULMONARY VALVE No pulmonary valve regurgitation or stenosis. VESSELS The inferior vena cava is normal in size. PERICARDIUM No pericardial effusion. Felipe Wayne MD, FACC (Electronically Signed) Final Date:01 February 2018 17:01
[2018-02-01] MEDS: Labetalol HCl Inj 100 MG/20 ML Vial IV.PUSH PRN (19:46)
[2018-02-01] MEDS: Senna/Docusate Sodium 8.6/50 MG Tablet PO SCH (20:03)
--- NOTE | 2018-02-01 21:33 | ECG ---
Date Performed: 02/01/2018 Time Performed: 09:04:25 PTAGE: 32 years EKG: Sinus rhythm POSSIBLE LEFT ATRIAL ENLARGEMENT LEFT ANTERIOR FASCICULAR BLOCK LEFT VENTRICULAR HYPERTROPHY AND ST- T CHANGE POSSIBLE SEPTAL MYOCARDIAL INFARCTION ABNORMAL ECG NO PREVIOUS TRACING DOCTOR: Cipriano Chopra Interpretating Date/Time 02/01/2018 21:31:09
[2018-02-02] MEDS: Chlorhexidine Gluconate 2% 1 Pack (2 Cloths) TOPICAL SCH (03:29)
[2018-02-02] MEDS: Clevidipine Inj 25 MG/50 ML VIAL IV.CONT PRN ×5 (03:47→23:06)
[2018-02-02] MEDS ORDERED: Chlorhexidine Gluconate 2% 1 Pack (2 Cloths) TOPICAL PRN (04:00)
[2018-02-02 07:02] LABS: Baso # (Auto) 0.1 th/mm3 (0.0-0.2); Baso % (Auto) 0.5 % (0.0-2.0); Eos % (Auto) 0.2 % (0.0-4.0); Hematocrit 31.3 % (39.0-51.0); Hemoglobin 10.9 gm/dL (13.0-17.0); Lymph # (Auto) 1.3 th/mm3 (1.0-4.8); Lymph % (Auto) 11.7 % (9.0-44.0); Mean Corpuscular HGB Conc 34.9 % (32.0-36.0); Mean Corpuscular Hemoglobin 30.8 pg (27.0-34.0); Mean Corpuscular Volume 88.2 fL (80.0-100.0); Mean Platelet Volume 9.2 fL (7.0-11.0); Mono # (Auto) 0.6 th/mm3 (0.0-0.9); Mono % (Auto) 5.5 % (0.0-8.0); Neut # (Auto) 9.3 th/mm3 (1.8-7.7); Neut % (Auto) 82.1 % (16.0-70.0); Platelet Count 122 th/mm3 (150-450); Red Blood Count 3.55 mil/mm3 (4.50-5.90); Red Cell Distribution Width 14.9 % (11.6-17.2); White Blood Count 11.4 th/mm3 (4.0-11.0)
[2018-02-02 07:19] LABS: Activated Partial Thrombo Time 24.5 sec (23.4-31.7); Prothrombin Time 10.5 sec (9.8-11.6)
[2018-02-02 07:43] LABS: Alanine Aminotransferase 36 U/L (12-78); Albumin 3.2 g/dL (3.4-5.0); Alkaline Phosphatase 78 U/L (45-117); Anion Gap 12 meq/L (5-15); Aspartate Aminotransferase 43 U/L (15-37); Blood Urea Nitrogen 59 mg/dL (7-18); Calcium 8.5 mg/dL (8.5-10.1); Carbon Dioxide 23.9 meq/L (21.0-32.0); Chloride 101 meq/L (98-107); Glomerular Filtration Rate 10 mL/min (>89); Glucose,Random 114 mg/dL (74-106); Magnesium 2.2 mg/dL (1.5-2.5); Phosphorus 4.5 mg/dL (2.5-4.9); Sodium 137 meq/L (136-145); Total Protein 6.6 g/dL (6.4-8.2)
[2018-02-02 07:57] LABS: Potassium 2.4 meq/L (3.5-5.1)
--- NOTE | 2018-02-02 09:15 | P.PNCC ---
Subjective Subjective Remarks/Hospital Course: This is a 32-year-old AA male. Date of admission 02/01/2018. Past medical history includes EtOH and smoking. Patient is on no medications. For the past 2-3 weeks patient has been experiencing generalized malaise including headaches , chest pain, shortness of breath vague abdominal pain. Patient presented to [facility] for further evaluation treatment. Upon arrival, patient had elevated systolic blood pressure in the 260s diastolic in the 180s. Received 3 doses of 2.5 mg of IV metoprolol. EKG revealed sinus tachycardia with significant LVH. 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 He has potassium of 2.5. Creatinine of 7.5. Troponin 0 0.19. Patient is thrombocytopenic. Patient systolic blood pressure is currently 230. He still expressing malaise. We are estimate the patient. Nephrology consult. Echocardiogram and renal ultrasound all currently pending. Subjective 02/02: Renal stone revealed medical renal disease. Echocardiogram EF normal. Pheochromocytoma and primary aldosteronism workup in process. Noted low potassium which fits with aldosterone. Playing of a headache requesting acetaminophen. Objective Vital Signs / I&O: Vital Signs 02/01/18 09:13 02/01/18 09:35 02/01/18 11:19 Temperature Pulse Rate 87 80 88 Respiratory Rate 18 18 Blood Pressure 240/175 H 231/167 H Pulse Oximetry 99 98 02/01/18 11:22 02/01/18 11:52 02/01/18 11:55 Temperature Pulse Rate 82 82 Respiratory Rate 18 18 Blood Pressure 243/176 H 227/161 H Pulse Oximetry 98 95 98 02/01/18 11:59 02/01/18 12:03 02/01/18 12:06 Temperature Pulse Rate 83 86 Respiratory Rate Blood Pressure 238/166 H 231/157 H 221/147 H Pulse Oximetry 02/01/18 12:07 02/01/18 12:08 02/01/18 12:11 Temperature Pulse Rate 98 H 95 H 96 H Respiratory Rate Blood Pressure 212/136 H 221/141 H 208/127 H Pulse Oximetry 02/01/18 12:12 02/01/18 12:15 02/01/18 12:17 Temperature Pulse Rate 96 H 96 H 94 H Respiratory Rate 18 Blood Pressure 197/124 H 186/112 H 162/101 H Pulse Oximetry 100 02/01/18 12:18 02/01/18 12:21 02/01/18 12:26 Temperature Pulse Rate 97 H Respiratory Rate Blood Pressure 169/103 H 156/91 H 176/99 H Pulse Oximetry 02/01/18 12:30 02/01/18 12:35 02/01/18 15:00 Temperature 99 F Pulse Rate 99 H Respiratory Rate 23 Blood Pressure 163/92 H 158/91 H 164/93 H Pulse Oximetry 100 02/01/18 16:00 02/01/18 16:41 02/01/18 17:00 Temperature Pulse Rate 100 H 92 H 92 H Respiratory Rate 23 18 26 H Blood Pressure 155/94 H 175/115 H Pulse Oximetry 99 99 02/01/18 17:15 02/01/18 17:30 02/01/18 17:45 Temperature Pulse Rate 89 90 87 Respiratory Rate 20 21 28 H Blood Pressure 189/123 H 189/119 H 191/125 H Pulse Oximetry 100 100 100 02/01/18 18:00 02/01/18 18:15 02/01/18 18:30 Temperature Pulse Rate 88 87 86 Respiratory Rate 33 H 20 22 Blood Pressure 179/118 H 190/128 H 197/130 H Pulse Oximetry 100 100 97 02/01/18 18:37 02/01/18 18:41 02/01/18 18:45 Temperature Pulse Rate 90 91 H 94 H Respiratory Rate 32 H 23 22 Blood Pressure 191/134 H 190/130 H 180/111 H Pulse Oximetry 100 100 97 02/01/18 19:00 02/01/18 19:04 02/01/18 19:21 Temperature 99.2 F Pulse Rate 96 H 93 H 96 H Respiratory Rate 26 H 22 21 Blood Pressure 198/119 H 195/121 H 203/121 H Pulse Oximetry 99 99 100 02/01/18 19:35 02/01/18 19:40 02/01/18 19:46 Temperature Pulse Rate 91 H 93 H Respiratory Rate 18 24 Blood Pressure 186/123 H Pulse Oximetry 100 100 02/01/18 20:00 02/01/18 20:15 02/01/18 20:30 Temperature Pulse Rate 87 90 92 H Respiratory Rate 32 H 26 H 23 Blood Pressure 193/122 H 199/130 H 200/124 H Pulse Oximetry 100 100 100 02/01/18 20:45 02/01/18 21:00 02/01/18 21:15 Temperature Pulse Rate 95 H 100 H 92 H Respiratory Rate 25 H 47 H 32 H Blood Pressure 191/111 H 150/79 H 121/59 L Pulse Oximetry 100 88 L 97 02/01/18 21:22 02/01/18 21:30 02/01/18 21:45 Temperature Pulse Rate 89 91 H 93 H Respiratory Rate 22 20 26 H Blood Pressure 137/79 157/94 H 160/86 H Pulse Oximetry 91 L 96 98 02/01/18 22:00 02/01/18 22:15 02/01/18 22:30 Temperature Pulse Rate 95 H 92 H 90 Respiratory Rate 41 H 38 H 23 Blood Pressure 158/78 H 157/97 H 172/102 H Pulse Oximetry 98 98 99 02/01/18 22:45 02/01/18 23:00 02/01/18 23:15 Temperature Pulse Rate 90 94 H 99 H Respiratory Rate 19 20 26 H Blood Pressure 162/98 H 168/98 H 171/97 H Pulse Oximetry 99 98 99 02/01/18 23:28 02/01/18 23:30 02/01/18 23:45 Temperature Pulse Rate 99 H 98 H 109 H Respiratory Rate 20 19 27 H Blood Pressure 173/97 H 172/98 H Pulse Oximetry 99 99 02/02/18 00:00 02/02/18 00:15 02/02/18 00:30 Temperature 99 F Pulse Rate 108 H 103 H 104 H Respiratory Rate 32 H 21 25 H Blood Pressure 162/89 H 131/79 125/66 Pulse Oximetry 97 97 96 02/02/18 00:45 02/02/18 01:00 02/02/18 01:15 Temperature Pulse Rate 102 H 105 H 107 H Respiratory Rate 26 H 26 H 25 H Blood Pressure 129/71 167/74 H 152/71 H Pulse Oximetry 97 99 99 02/02/18 01:30 02/02/18 01:45 02/02/18 02:00 Temperature Pulse Rate 108 H 108 H 105 H Respiratory Rate 26 H 27 H 23 Blood Pressure 144/75 H 148/72 H 145/77 H Pulse Oximetry 98 99 100 02/02/18 02:15 02/02/18 02:30 02/02/18 02:45 Temperature Pulse Rate 102 H 104 H 104 H Respiratory Rate 23 22 21 Blood Pressure 155/76 H 150/80 H 154/79 H Pulse Oximetry 100 99 99 02/02/18 03:00 02/02/18 03:15 02/02/18 03:30 Temperature Pulse Rate 107 H 104 H 94 H Respiratory Rate 25 H 20 19 Blood Pressure 158/80 H 159/77 H 179/95 H Pulse Oximetry 100 98 99 02/02/18 03:45 02/02/18 03:54 02/02/18 04:00 Temperature 99.1 F Pulse Rate 95 H 109 H 114 H Respiratory Rate 21 16 35 H Blood Pressure 181/108 H 170/95 H Pulse Oximetry 99 99 02/02/18 04:15 02/02/18 04:30 02/02/18 04:45 Temperature Pulse Rate 111 H 111 H 112 H Respiratory Rate 23 24 24 Blood Pressure 175/91 H 161/90 H 171/92 H Pulse Oximetry 99 97 97 02/02/18 05:00 02/02/18 05:15 02/02/18 05:30 Temperature Pulse Rate 113 H 108 H 106 H Respiratory Rate 28 H 24 23 Blood Pressure 170/92 H 171/96 H 175/94 H Pulse Oximetry 100 98 99 02/02/18 05:45 02/02/18 06:00 02/02/18 06:15 Temperature Pulse Rate 106 H 111 H 110 H Respiratory Rate 23 24 28 H Blood Pressure 179/92 H 181/97 H 174/90 H Pulse Oximetry 98 100 100 02/02/18 06:30 02/02/18 06:45 02/02/18 07:00 Temperature Pulse Rate 106 H 108 H 109 H Respiratory Rate 24 23 26 H Blood Pressure 179/94 H 180/106 H 169/99 H Pulse Oximetry 99 100 100 Intake & Output 02/01/18 02/02/18 02/02/18 18:59 06:59 18:59 Intake Total 600 / 600 50 / 50 Output Total 675 / 675 1395 / 1395 Balance -75 / -75 -1345 / -1345 Weight 67.1 kg 68.2 kg Intake: IV 350 / 350 50 / 50 Cleviprex Inj 25 mg In 50 ml @ 50 / 50 50 / 50 1 MG/HR 2 mls/hr IV.CONT TITRATE PRN Rx#:[id number] NS Inj 1,000 ML @ 84 mls/hr IV. 300 / 300 CONT .[id number] [facility] Rx#:[id number] Oral 250 / 250 Output: Urine 675 / 675 1395 / 1395 Other: Weight On Admission 67.1 kg Result Diagrams: 02/02/18 06:20 02/02/18 06:20 Other Results: Microbiology 02/01/18 10:56 Nasal Wash Influenza Types A,B Antigen - Final Negative for FLU A and B antigen Infection due to influenza A or B cannot be ruled out since the antigen present in the sample may be below the detection limit of the test. Imaging: Chest X-Ray 02/01/18 08:29 CONCLUSION: Under aerated with some peribronchial thickening. Inflammatory process is suspected. Head CT 02/01/18 09:03 CONCLUSION: 1. Negative for acute process . Abdomen/Bladder Ultrasound 02/01/18 10:21 CONCLUSION: 1. No hydronephrosis. 2. Mildly increased echogenicity indicate medical renal disease. Objective Remarks: GENERAL: 32-year-old -[place] male currently resting in bed in no acute distress SKIN: Warm and dry. HEAD: Atraumatic. Normocephalic. EYES: Pupils equal and round. No scleral icterus. No injection or drainage. No papilledema identified ENT: No nasal bleeding or discharge. Mucous membranes pink and moist. NECK: Trachea midline. No JVD. CARDIOVASCULAR: Tachycardic, RR. S1, S2. No prescription without murmur RESPIRATORY: No accessory muscle use. Clear to auscultation. Breath sounds equal bilaterally. GASTROINTESTINAL: Abdomen soft, non-tender, nondistended. MUSCULOSKELETAL: Extremities without clubbing, cyanosis, or edema. No obvious deformities. NEUROLOGICAL: Awake and alert. No obvious cranial nerve deficits. Motor grossly within normal limits. Five out of 5 muscle strength in the arms and legs. Normal speech. PSYCHIATRIC: Appropriate mood and affect; insight and judgment normal. Assessment and Plan - Problem List (1) Elevated troponin Code(s): R74.8 - Abnormal levels of other serum enzymes Status: Acute (2) Hyponatremia Code(s): E87.1 - Hypo-osmolality and hyponatremia Status: Acute (3) Hypopotassemia Code(s): E87.6 - Hypokalemia Status: Acute (4) Elevated AST (SGOT) Code(s): R74.0 - Nonspecific elevation of levels of transaminase and lactic acid dehydrogenase [LDH] Status: Acute (5) Thrombocytopenia Code(s): D69.6 - Thrombocytopenia, unspecified Status: Acute - Assessment and Plan Plan: Neuro/Psych: Headachecephalgia Acetaminophen 650 mg p.o. every 6 hours as needed fever Hydrocodone/acetaminophen 5/51 tablet every 4 hours as needed pain 1 through 5 Morphine sulfate 2 mg IV every 2 hours as needed pain 6 through 10 Drug toxicology screen pending CT brain revealed no acute findings CV: Hypertensive emergency Elevated troponin Started on verapamil 40 mg 3 times daily, hydralazine 20 mg 3 times daily and IsoSorbide dinitrate 10 mg 3 times daily Currently on as needed labetalol, hydralazine Nitropaste to keep systolic blood pressure less than 180, diastolic less than 100 Clevidipine drip as indicated Serial troponins. Cycle until downtrending. Currently 0.19. Likely secondary to hypertensive crisis/strain EKG revealed sinus tachycardia with LVH. Echocardiogram concentric left ventricular hypertrophy left ventricular systolic function is normal with an estimated ejection fraction in the range of 55-60%. The left atrial size is mildly dilated. [id number] mitral valve regurgitation. There is trace tricuspid valve regurgitation. The estimated pulmonary arterial pressure is 32 mmHg. Renal ultrasound revealed cortical thinning indicative of medical renal disease. No hydronephrosis Resp: Nasal cannula to maintain saturations greater than or equal to 92% Incentive spirometry while awake Albuterol/ipratropium aerosols every 4 hours with albuterol aerosols every 2 hours as needed dyspnea Chest x-ray revealed cardiomegaly but no significant pulmonary findings GI: Elevated AST Renal/cardiac diet Pantoprazole for GI prophylaxis Docusate sodium/senna 1 tablet twice daily for bowel regimen : Straight catheterization as needed Endo: Sliding scale insulin Accu-Cheks to maintain euglycemia aspart insulin Check TSH and cortisol was 27 Renal: Acute kidney injury -unknown baseline Negative urine eosinophils Avoid nephrotoxic medication Monitor urine output Accurate I's and O's Nephrology consultation appreciated with workup in process Pheochromocytoma workup per nephrology. Including metanephrines and normetanephrine's Renin, aldosterone aspirin workup Heme: Thrombocytopenia Leukocytosis normocytic anemia Monitor CBC daily. Follow trends. No indication for transfusion of blood products at this time ID: Blood cultures x2, influenza a and B ordered Monitor for signs of hematology infection FEN: Hyponatremia Hypopotassemia Received 40 mEq potassium chloride. Recheck potassium 1800 hrs. tonight. Replace electrolytes as clinically indicated Taken urinary potassium MSK: Out of bed/PT evaluate and treat Access -Utilize peripheral IV. Central line if indicated Prophylaxis -GI -pantoprazole -DVT-SCD/holding pharmacological prophylaxis with high blood pressure. Resume likely tomorrow Critical care time 35 minutes
[2018-02-02] MEDS: Acetaminophen 325 MG Tablet PO PRN ×2 (09:33→19:28)
[2018-02-02] MEDS: hydrALAZINE 25 MG Tablet PO SCH ×2 (12:28→17:34)
[2018-02-02] MEDS: Sod Chloride 0.9% Inj 1,000 ML IV.CONT SCH (12:29)
[2018-02-02] MEDS: Senna/Docusate Sodium 8.6/50 MG Tablet PO SCH (12:29)
--- NOTE | 2018-02-02 16:20 | P.PNNP ---
Subjective Interval history: Patient was seen, discussed decline in renal function with patient and possible need for dialysis starting tomorrow. IR was consulted for PermCath placement. <Gelacio Rosenbaum - Last Filed: 02/02/18 16:14> Physical Exam Vital signs: Vital Signs 02/01/18 16:41 02/01/18 17:00 02/01/18 17:15 Temperature Pulse Rate 92 H 92 H 89 Respiratory Rate 18 26 H 20 Blood Pressure 175/115 H 189/123 H Pulse Oximetry 99 100 02/01/18 17:30 02/01/18 17:45 02/01/18 18:00 Temperature Pulse Rate 90 87 88 Respiratory Rate 21 28 H 33 H Blood Pressure 189/119 H 191/125 H 179/118 H Pulse Oximetry 100 100 100 02/01/18 18:15 02/01/18 18:30 02/01/18 18:37 Temperature Pulse Rate 87 86 90 Respiratory Rate 20 22 32 H Blood Pressure 190/128 H 197/130 H 191/134 H Pulse Oximetry 100 97 100 02/01/18 18:41 02/01/18 18:45 02/01/18 19:00 Temperature 99.2 F Pulse Rate 91 H 94 H 96 H Respiratory Rate 23 22 26 H Blood Pressure 190/130 H 180/111 H 198/119 H Pulse Oximetry 100 97 99 02/01/18 19:04 02/01/18 19:21 02/01/18 19:35 Temperature Pulse Rate 93 H 96 H 91 H Respiratory Rate 22 21 18 Blood Pressure 195/121 H 203/121 H Pulse Oximetry 99 100 02/01/18 19:40 02/01/18 19:46 02/01/18 20:00 Temperature Pulse Rate 93 H 87 Respiratory Rate 24 32 H Blood Pressure 186/123 H 193/122 H Pulse Oximetry 100 100 100 02/01/18 20:15 02/01/18 20:30 02/01/18 20:45 Temperature Pulse Rate 90 92 H 95 H Respiratory Rate 26 H 23 25 H Blood Pressure 199/130 H 200/124 H 191/111 H Pulse Oximetry 100 100 100 02/01/18 21:00 02/01/18 21:15 02/01/18 21:22 Temperature Pulse Rate 100 H 92 H 89 Respiratory Rate 47 H 32 H 22 Blood Pressure 150/79 H 121/59 L 137/79 Pulse Oximetry 88 L 97 91 L 02/01/18 21:30 02/01/18 21:45 02/01/18 22:00 Temperature Pulse Rate 91 H 93 H 95 H Respiratory Rate 20 26 H 41 H Blood Pressure 157/94 H 160/86 H 158/78 H Pulse Oximetry 96 98 98 02/01/18 22:15 02/01/18 22:30 02/01/18 22:45 Temperature Pulse Rate 92 H 90 90 Respiratory Rate 38 H 23 19 Blood Pressure 157/97 H 172/102 H 162/98 H Pulse Oximetry 98 99 99 02/01/18 23:00 02/01/18 23:15 02/01/18 23:28 Temperature Pulse Rate 94 H 99 H 99 H Respiratory Rate 20 26 H 20 Blood Pressure 168/98 H 171/97 H Pulse Oximetry 98 99 02/01/18 23:30 02/01/18 23:45 02/02/18 00:00 Temperature 99 F Pulse Rate 98 H 109 H 108 H Respiratory Rate 19 27 H 32 H Blood Pressure 173/97 H 172/98 H 162/89 H Pulse Oximetry 99 99 97 02/02/18 00:15 02/02/18 00:30 02/02/18 00:45 Temperature Pulse Rate 103 H 104 H 102 H Respiratory Rate 21 25 H 26 H Blood Pressure 131/79 125/66 129/71 Pulse Oximetry 97 96 97 02/02/18 01:00 02/02/18 01:15 02/02/18 01:30 Temperature Pulse Rate 105 H 107 H 108 H Respiratory Rate 26 H 25 H 26 H Blood Pressure 167/74 H 152/71 H 144/75 H Pulse Oximetry 99 99 98 02/02/18 01:45 02/02/18 02:00 02/02/18 02:15 Temperature Pulse Rate 108 H 105 H 102 H Respiratory Rate 27 H 23 23 Blood Pressure 148/72 H 145/77 H 155/76 H Pulse Oximetry 99 100 100 02/02/18 02:30 02/02/18 02:45 02/02/18 03:00 Temperature Pulse Rate 104 H 104 H 107 H Respiratory Rate 22 21 25 H Blood Pressure 150/80 H 154/79 H 158/80 H Pulse Oximetry 99 99 100 02/02/18 03:15 02/02/18 03:30 02/02/18 03:45 Temperature Pulse Rate 104 H 94 H 95 H Respiratory Rate 20 19 21 Blood Pressure 159/77 H 179/95 H 181/108 H Pulse Oximetry 98 99 99 02/02/18 03:54 02/02/18 04:00 02/02/18 04:15 Temperature 99.1 F Pulse Rate 109 H 114 H 111 H Respiratory Rate 16 35 H 23 Blood Pressure 170/95 H 175/91 H Pulse Oximetry 99 99 02/02/18 04:30 02/02/18 04:45 02/02/18 05:00 Temperature Pulse Rate 111 H 112 H 113 H Respiratory Rate 24 24 28 H Blood Pressure 161/90 H 171/92 H 170/92 H Pulse Oximetry 97 97 100 02/02/18 05:15 02/02/18 05:30 02/02/18 05:45 Temperature Pulse Rate 108 H 106 H 106 H Respiratory Rate 24 23 23 Blood Pressure 171/96 H 175/94 H 179/92 H Pulse Oximetry 98 99 98 02/02/18 06:00 02/02/18 06:15 02/02/18 06:30 Temperature Pulse Rate 111 H 110 H 106 H Respiratory Rate 24 28 H 24 Blood Pressure 181/97 H 174/90 H 179/94 H Pulse Oximetry 100 100 99 02/02/18 06:45 02/02/18 07:00 02/02/18 08:00 Temperature Pulse Rate 108 H 109 H 107 H Respiratory Rate 23 26 H Blood Pressure 180/106 H 169/99 H Pulse Oximetry 100 100 100 02/02/18 08:30 02/02/18 08:45 02/02/18 09:00 Temperature 99 F Pulse Rate 110 H 109 H 109 H Respiratory Rate 20 22 23 Blood Pressure 186/104 H 184/97 H 173/103 H Pulse Oximetry 99 100 100 02/02/18 09:15 02/02/18 09:30 02/02/18 09:45 Temperature Pulse Rate 109 H 104 H 107 H Respiratory Rate 23 19 25 H Blood Pressure 175/93 H 174/101 H 169/96 H Pulse Oximetry 100 100 99 02/02/18 10:00 02/02/18 10:15 02/02/18 10:30 Temperature Pulse Rate 107 H 107 H 106 H Respiratory Rate 22 20 22 Blood Pressure 171/95 H 158/88 H 166/90 H Pulse Oximetry 99 98 99 02/02/18 10:45 02/02/18 11:00 02/02/18 11:15 Temperature Pulse Rate 108 H 108 H 109 H Respiratory Rate 23 19 21 Blood Pressure 162/90 H 160/83 H 174/98 H Pulse Oximetry 97 100 98 02/02/18 11:30 02/02/18 11:36 02/02/18 11:45 Temperature Pulse Rate 105 H 105 H 105 H Respiratory Rate 21 20 31 H Blood Pressure 168/92 H 175/99 H Pulse Oximetry 99 98 99 02/02/18 12:00 02/02/18 12:15 02/02/18 12:30 Temperature Pulse Rate 110 H 114 H 108 H Respiratory Rate 23 22 20 Blood Pressure 178/98 H 184/105 H 182/99 H Pulse Oximetry 99 99 98 02/02/18 12:46 02/02/18 13:00 02/02/18 13:15 Temperature Pulse Rate 100 H 99 H 97 H Respiratory Rate 20 23 24 Blood Pressure 160/86 H 159/81 H 128/66 Pulse Oximetry 98 97 99 02/02/18 13:30 02/02/18 13:45 02/02/18 13:49 Temperature Pulse Rate 91 H 98 H 93 H Respiratory Rate 23 20 22 Blood Pressure 170/96 H 213/131 H 200/123 H Pulse Oximetry 99 100 100 02/02/18 14:00 02/02/18 14:15 02/02/18 15:34 Temperature Pulse Rate 93 H 91 H 97 H Respiratory Rate 24 27 H 18 Blood Pressure 181/107 H 192/106 H Pulse Oximetry 100 100 Intake & Output 02/01/18 02/02/18 02/02/18 18:59 06:59 18:59 Intake Total 600 / 600 50 / 50 1000 / 1000 Output Total 675 / 675 1395 / 1395 600 / 600 Balance -75 / -75 -1345 / -1345 400 / 400 Weight 67.1 kg 68.2 kg Intake: IV 350 / 350 50 / 50 1000 / 1000 Cleviprex Inj 25 mg In 50 ml @ 50 / 50 50 / 50 1 MG/HR 2 mls/hr IV.CONT TITRATE PRN Rx#:[id number] NS Inj 1,000 ML @ 84 mls/hr IV. 300 / 300 1000 / 1000 CONT .[id number] TANJA Rx#:[id number] Oral 250 / 250 Output: Urine 675 / 675 1395 / 1395 600 / 600 Other: Weight On Admission 67.1 kg - Constitutional no acute distress - Routine HEENT Exam Head: Present: normocephalic Eye: Present: EOMI, PERRL ENT: Present: mucous membranes moist - Routine Neck Exam Present: trachea midline. Absent: tracheal deviation - Routine Respiratory Exam Present: CTA bilaterally. Absent: accessory muscle use - Routine Cardiovascular Exam Present: RRR, tachycardia - Routine Abdominal Exam Present: soft. Absent: distended - Routine Extremities Exam Absent: cyanosis, edema - Routine Neurological Exam Present: alert, oriented X3 - Routine Psychiatric Exam Present: normal affect <Gelacio Rosenbaum - Last Filed: 02/02/18 16:14> Vital signs: Vital Signs 02/01/18 22:15 02/01/18 22:30 02/01/18 22:45 Temperature Pulse Rate 92 H 90 90 Respiratory Rate 38 H 23 19 Blood Pressure 157/97 H 172/102 H 162/98 H Pulse Oximetry 98 99 99 02/01/18 23:00 02/01/18 23:15 02/01/18 23:28 Temperature Pulse Rate 94 H 99 H 99 H Respiratory Rate 20 26 H 20 Blood Pressure 168/98 H 171/97 H Pulse Oximetry 98 99 02/01/18 23:30 02/01/18 23:45 02/02/18 00:00 Temperature 99 F Pulse Rate 98 H 109 H 108 H Respiratory Rate 19 27 H 32 H Blood Pressure 173/97 H 172/98 H 162/89 H Pulse Oximetry 99 99 97 02/02/18 00:15 02/02/18 00:30 02/02/18 00:45 Temperature Pulse Rate 103 H 104 H 102 H Respiratory Rate 21 25 H 26 H Blood Pressure 131/79 125/66 129/71 Pulse Oximetry 97 96 97 02/02/18 01:00 02/02/18 01:15 02/02/18 01:30 Temperature Pulse Rate 105 H 107 H 108 H Respiratory Rate 26 H 25 H 26 H Blood Pressure 167/74 H 152/71 H 144/75 H Pulse Oximetry 99 99 98 02/02/18 01:45 02/02/18 02:00 02/02/18 02:15 Temperature Pulse Rate 108 H 105 H 102 H Respiratory Rate 27 H 23 23 Blood Pressure 148/72 H 145/77 H 155/76 H Pulse Oximetry 99 100 100 02/02/18 02:30 02/02/18 02:45 02/02/18 03:00 Temperature Pulse Rate 104 H 104 H 107 H Respiratory Rate 22 21 25 H Blood Pressure 150/80 H 154/79 H 158/80 H Pulse Oximetry 99 99 100 02/02/18 03:15 02/02/18 03:30 02/02/18 03:45 Temperature Pulse Rate 104 H 94 H 95 H Respiratory Rate 20 19 21 Blood Pressure 159/77 H 179/95 H 181/108 H Pulse Oximetry 98 99 99 02/02/18 03:54 02/02/18 04:00 02/02/18 04:15 Temperature 99.1 F Pulse Rate 109 H 114 H 111 H Respiratory Rate 16 35 H 23 Blood Pressure 170/95 H 175/91 H Pulse Oximetry 99 99 02/02/18 04:30 02/02/18 04:45 02/02/18 05:00 Temperature Pulse Rate 111 H 112 H 113 H Respiratory Rate 24 24 28 H Blood Pressure 161/90 H 171/92 H 170/92 H Pulse Oximetry 97 97 100 02/02/18 05:15 02/02/18 05:30 02/02/18 05:45 Temperature Pulse Rate 108 H 106 H 106 H Respiratory Rate 24 23 23 Blood Pressure 171/96 H 175/94 H 179/92 H Pulse Oximetry 98 99 98 02/02/18 06:00 02/02/18 06:15 02/02/18 06:30 Temperature Pulse Rate 111 H 110 H 106 H Respiratory Rate 24 28 H 24 Blood Pressure 181/97 H 174/90 H 179/94 H Pulse Oximetry 100 100 99 02/02/18 06:45 02/02/18 07:00 02/02/18 08:00 Temperature Pulse Rate 108 H 109 H 107 H Respiratory Rate 23 26 H Blood Pressure 180/106 H 169/99 H Pulse Oximetry 100 100 100 02/02/18 08:30 02/02/18 08:45 02/02/18 09:00 Temperature 99 F Pulse Rate 110 H 109 H 109 H Respiratory Rate 20 22 23 Blood Pressure 186/104 H 184/97 H 173/103 H Pulse Oximetry 99 100 100 02/02/18 09:15 02/02/18 09:30 02/02/18 09:45 Temperature Pulse Rate 109 H 104 H 107 H Respiratory Rate 23 19 25 H Blood Pressure 175/93 H 174/101 H 169/96 H Pulse Oximetry 100 100 99 02/02/18 10:00 02/02/18 10:15 02/02/18 10:30 Temperature Pulse Rate 107 H 107 H 106 H Respiratory Rate 22 20 22 Blood Pressure 171/95 H 158/88 H 166/90 H Pulse Oximetry 99 98 99 02/02/18 10:45 02/02/18 11:00 02/02/18 11:15 Temperature Pulse Rate 108 H 108 H 109 H Respiratory Rate 23 19 21 Blood Pressure 162/90 H 160/83 H 174/98 H Pulse Oximetry 97 100 98 02/02/18 11:30 02/02/18 11:36 02/02/18 11:45 Temperature Pulse Rate 105 H 105 H 105 H Respiratory Rate 21 20 31 H Blood Pressure 168/92 H 175/99 H Pulse Oximetry 99 98 99 02/02/18 12:00 02/02/18 12:15 02/02/18 12:30 Temperature Pulse Rate 110 H 114 H 108 H Respiratory Rate 23 22 20 Blood Pressure 178/98 H 184/105 H 182/99 H Pulse Oximetry 99 99 98 02/02/18 12:46 02/02/18 13:00 02/02/18 13:15 Temperature Pulse Rate 100 H 99 H 97 H Respiratory Rate 20 23 24 Blood Pressure 160/86 H 159/81 H 128/66 Pulse Oximetry 98 97 99 02/02/18 13:30 02/02/18 13:45 02/02/18 13:49 Temperature Pulse Rate 91 H 98 H 93 H Respiratory Rate 23 20 22 Blood Pressure 170/96 H 213/131 H 200/123 H Pulse Oximetry 99 100 100 02/02/18 14:00 02/02/18 14:15 02/02/18 14:31 Temperature Pulse Rate 93 H 91 H 91 H Respiratory Rate 24 27 H 20 Blood Pressure 181/107 H 192/106 H 172/93 H Pulse Oximetry 100 100 100 02/02/18 14:45 02/02/18 15:00 02/02/18 15:15 Temperature Pulse Rate 93 H 97 H 95 H Respiratory Rate 20 19 20 Blood Pressure 180/95 H 179/100 H 181/103 H Pulse Oximetry 100 100 100 02/02/18 15:30 02/02/18 15:34 02/02/18 15:45 Temperature Pulse Rate 95 H 97 H 102 H Respiratory Rate 21 18 21 Blood Pressure 185/106 H 194/114 H Pulse Oximetry 99 100 02/02/18 16:00 02/02/18 16:15 02/02/18 16:30 Temperature Pulse Rate 106 H 102 H 102 H Respiratory Rate 24 21 27 H Blood Pressure 197/113 H 195/110 H 167/79 H Pulse Oximetry 99 98 100 02/02/18 16:45 02/02/18 17:00 02/02/18 17:15 Temperature Pulse Rate 101 H 98 H 101 H Respiratory Rate 31 H 19 22 Blood Pressure 180/105 H 175/97 H 191/113 H Pulse Oximetry 99 100 100 02/02/18 17:30 02/02/18 17:45 02/02/18 17:48 Temperature Pulse Rate 100 H 108 H 107 H Respiratory Rate 17 26 H 26 H Blood Pressure 194/112 H 205/118 H 199/117 H Pulse Oximetry 100 99 100 02/02/18 18:00 02/02/18 18:15 02/02/18 18:30 Temperature Pulse Rate 102 H 104 H 104 H Respiratory Rate 25 H 26 H 23 Blood Pressure 194/117 H 195/112 H 195/107 H Pulse Oximetry 100 99 100 Intake & Output 02/02/18 02/02/18 02/03/18 06:59 18:59 06:59 Intake Total 50 / 50 2150 / 2150 Output Total 1395 / 1395 1850 / 1850 Balance -1345 / -1345 300 / 300 Weight 68.2 kg Intake: IV 50 / 50 1150 / 1150 Cleviprex Inj 25 mg In 50 ml @ 50 / 50 150 / 150 1 MG/HR 2 mls/hr IV.CONT TITRATE PRN Rx#:[id number] NS Inj 1,000 ML @ 84 mls/hr IV. 1000 / 1000 CONT .[id number] TANJA Rx#:[id number] Oral 1000 / 1000 Output: Urine 1395 / 1395 1850 / 1850 <Deejay Whitten - Last Filed: 02/02/18 22:06> Assessment and Plan - Assessment (1) Acute renal failure Code(s): N17.9 - Acute kidney failure, unspecified Status: Acute Qualifiers: Acute renal failure type: unspecified Qualified Code(s): N17.9 - Acute kidney failure, unspecified Plan: Patient appears to have underlying CKD. We have no baseline lab work for the patient. Hypertensive crisis could be due to renal failure or acute renal failure could be due to malignant hypertension. Renal function declined today. Discussed starting dialysis tomorrow. IR was consulted for PermCath placement. Avoid nephrotoxic agents. Monitor fluid and electrolytes. (2) Hypopotassemia Code(s): E87.6 - Hypokalemia Status: Acute Plan: Patient given Potassium supplement in ED and ICU. Monitor for improvement. (3) Hypertensive emergency Code(s): I16.1 - Hypertensive emergency Status: Acute Plan: Patient given IVP Metoprolol in the ED. On Cleviprex drip. BP improved but still hypertensive. Also on Hydralazine and Labetalol. Monitor BP. <Gelacio Rosenbaum - Last Filed: 02/02/18 16:14> - Assessment (1) Acute renal failure Code(s): N17.9 - Acute kidney failure, unspecified Status: Acute Qualifiers: Acute renal failure type: unspecified Qualified Code(s): N17.9 - Acute kidney failure, unspecified (2) Hypopotassemia Code(s): E87.6 - Hypokalemia Status: Acute (3) Hypertensive emergency Code(s): I16.1 - Hypertensive emergency Status: Acute - Attending Attestation patient was seen and examined. Urine protein/creatinine ratio ordered. CPK was not high. Serologies ordered. Unclear etiology of hypokalemia: I have ordered Aldosterone/PRA ratio. Potassium replacement ordered. IR consulted for PermCath placement. Dialysis from tomorrow. Patient agrees to proceed. <Deejay Whitten - Last Filed: 02/02/18 22:06>
[2018-02-02 16:41] LABS: Reticulocyte Percent 4.4 % (0.4-3.0)
[2018-02-02] MEDS ORDERED: Gelatin 12 MM/7 MM Topical Foam TOPICAL PRN (17:13)
[2018-02-02] MEDS ORDERED: Albumin Human 25% Inj 100 ML IV.SIG PRN (17:13)
[2018-02-02] MEDS ORDERED: Sod Chloride 0.9% Inj 1,000 ML OTHER PRN ×2 (17:13)
[2018-02-02] MEDS ORDERED: Sod Chloride 0.9% Inj 1,000 ML IV.CONT PRN (17:13)
[2018-02-02] MEDS ORDERED: Acetaminophen 325 MG Tablet PO PRN (17:13)
[2018-02-02] MEDS ORDERED: Heparin 10,000 UNITS/10 ML Vial (for IV use) OTHER PRN (17:13)
[2018-02-02 19:55] LABS: Protein/Creatinine Ratio,Urine 1.78 (0.00-0.14)
[2018-02-03] MEDS: Senna/Docusate Sodium 8.6/50 MG Tablet PO SCH ×2 (00:29→08:32)
[2018-02-03] MEDS: Sod Chloride 0.9% Inj 1,000 ML IV.CONT SCH ×2 (00:30→18:31)
[2018-02-03] MEDS: Clevidipine Inj 25 MG/50 ML VIAL IV.CONT PRN ×5 (04:35→18:32)
[2018-02-03] MEDS: Chlorhexidine Gluconate 2% 1 Pack (2 Cloths) TOPICAL SCH (05:06)
[2018-02-03 07:45] LABS: Baso # (Auto) 0.1 th/mm3 (0.0-0.2); Baso % (Auto) 0.9 % (0.0-2.0); Eos # (Auto) 0.1 th/mm3 (0.0-0.4); Eos % (Auto) 0.5 % (0.0-4.0); Hematocrit 33.5 % (39.0-51.0); Hemoglobin 11.7 gm/dL (13.0-17.0); Lymph # (Auto) 1.3 th/mm3 (1.0-4.8); Lymph % (Auto) 11.9 % (9.0-44.0); Mean Corpuscular HGB Conc 34.8 % (32.0-36.0); Mean Corpuscular Hemoglobin 30.9 pg (27.0-34.0); Mean Corpuscular Volume 88.9 fL (80.0-100.0); Mean Platelet Volume 9.6 fL (7.0-11.0); Mono # (Auto) 0.5 th/mm3 (0.0-0.9); Mono % (Auto) 4.9 % (0.0-8.0); Neut # (Auto) 8.6 th/mm3 (1.8-7.7); Neut % (Auto) 81.8 % (16.0-70.0); Platelet Count 154 th/mm3 (150-450); Red Blood Count 3.77 mil/mm3 (4.50-5.90); Red Cell Distribution Width 15.8 % (11.6-17.2); White Blood Count 10.6 th/mm3 (4.0-11.0)
[2018-02-03 08:22] LABS: Alanine Aminotransferase 31 U/L (12-78); Albumin 3.3 g/dL (3.4-5.0); Alkaline Phosphatase 80 U/L (45-117); Anion Gap 11 meq/L (5-15); Aspartate Aminotransferase 33 U/L (15-37); Blood Urea Nitrogen 53 mg/dL (7-18); Calcium 8.4 mg/dL (8.5-10.1); Carbon Dioxide 22.7 meq/L (21.0-32.0); Chloride 101 meq/L (98-107); Creatine Kinase 125 U/L (39-308); Glomerular Filtration Rate 10 mL/min (>89); Glucose,Random 105 mg/dL (74-106); Magnesium 2.2 mg/dL (1.5-2.5); Phosphorus 5.7 mg/dL (2.5-4.9); Sodium 135 meq/L (136-145); Total Protein 7.1 g/dL (6.4-8.2)
[2018-02-03 08:26] LABS: Potassium 2.9 meq/L (3.5-5.1)
[2018-02-03] MEDS: hydrALAZINE 25 MG Tablet PO SCH (08:32)
--- NOTE | 2018-02-03 08:46 | P.PNCC ---
Subjective Subjective Remarks/Hospital Course: This is a 32-year-old AA male. Date of admission 02/01/2018. Past medical history includes EtOH and smoking. Patient is on no medications. For the past 2-3 weeks patient has been experiencing generalized malaise including headaches , chest pain, shortness of breath vague abdominal pain. Patient presented to [facility] for further evaluation treatment. Upon arrival, patient had elevated systolic blood pressure in the 260s diastolic in the 180s. Received 3 doses of 2.5 mg of IV metoprolol. EKG revealed sinus tachycardia with significant LVH. 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 He has potassium of 2.5. Creatinine of 7.5. Troponin 0 0.19. Patient is thrombocytopenic. Patient systolic blood pressure is currently 230. He still expressing malaise. We are estimate the patient. Nephrology consult. Echocardiogram and renal ultrasound all currently pending. 02/02: Renal ultrasound revealed medical renal disease. Echocardiogram EF normal. Pheochromocytoma and primary aldosteronism workup in process. Noted low potassium which fits with aldosterone. Playing of a headache requesting acetaminophen. Subjective 02/03: Afebrile. Remains on clevidipine drip but weaning down. Denies headache or chest pain currently. Plan for tunneled he will Vas-Cath today with dialysis to follow. Objective Vital Signs / I&O: Vital Signs 02/02/18 08:45 02/02/18 09:00 02/02/18 09:15 Temperature 99 F Pulse Rate 109 H 109 H 109 H Respiratory Rate 22 23 23 Blood Pressure 184/97 H 173/103 H 175/93 H Pulse Oximetry 100 100 100 02/02/18 09:30 02/02/18 09:45 02/02/18 10:00 Temperature Pulse Rate 104 H 107 H 107 H Respiratory Rate 19 25 H 22 Blood Pressure 174/101 H 169/96 H 171/95 H Pulse Oximetry 100 99 99 02/02/18 10:15 02/02/18 10:30 02/02/18 10:45 Temperature Pulse Rate 107 H 106 H 108 H Respiratory Rate 20 22 23 Blood Pressure 158/88 H 166/90 H 162/90 H Pulse Oximetry 98 99 97 02/02/18 11:00 02/02/18 11:15 02/02/18 11:30 Temperature Pulse Rate 108 H 109 H 105 H Respiratory Rate 19 21 21 Blood Pressure 160/83 H 174/98 H 168/92 H Pulse Oximetry 100 98 99 02/02/18 11:36 02/02/18 11:45 02/02/18 12:00 Temperature Pulse Rate 105 H 105 H 110 H Respiratory Rate 20 31 H 23 Blood Pressure 175/99 H 178/98 H Pulse Oximetry 98 99 99 02/02/18 12:15 02/02/18 12:30 02/02/18 12:46 Temperature Pulse Rate 114 H 108 H 100 H Respiratory Rate 22 20 20 Blood Pressure 184/105 H 182/99 H 160/86 H Pulse Oximetry 99 98 98 02/02/18 13:00 02/02/18 13:15 02/02/18 13:30 Temperature Pulse Rate 99 H 97 H 91 H Respiratory Rate 23 24 23 Blood Pressure 159/81 H 128/66 170/96 H Pulse Oximetry 97 99 99 02/02/18 13:45 02/02/18 13:49 02/02/18 14:00 Temperature Pulse Rate 98 H 93 H 93 H Respiratory Rate 20 22 24 Blood Pressure 213/131 H 200/123 H 181/107 H Pulse Oximetry 100 100 100 02/02/18 14:15 02/02/18 14:31 02/02/18 14:45 Temperature Pulse Rate 91 H 91 H 93 H Respiratory Rate 27 H 20 20 Blood Pressure 192/106 H 172/93 H 180/95 H Pulse Oximetry 100 100 100 02/02/18 15:00 02/02/18 15:15 02/02/18 15:30 Temperature Pulse Rate 97 H 95 H 95 H Respiratory Rate 19 20 21 Blood Pressure 179/100 H 181/103 H 185/106 H Pulse Oximetry 100 100 99 02/02/18 15:34 02/02/18 15:45 02/02/18 16:00 Temperature Pulse Rate 97 H 102 H 106 H Respiratory Rate 18 21 24 Blood Pressure 194/114 H 197/113 H Pulse Oximetry 100 99 02/02/18 16:15 02/02/18 16:30 02/02/18 16:45 Temperature Pulse Rate 102 H 102 H 101 H Respiratory Rate 21 27 H 31 H Blood Pressure 195/110 H 167/79 H 180/105 H Pulse Oximetry 98 100 99 02/02/18 17:00 02/02/18 17:15 02/02/18 17:30 Temperature Pulse Rate 98 H 101 H 100 H Respiratory Rate 19 22 17 Blood Pressure 175/97 H 191/113 H 194/112 H Pulse Oximetry 100 100 100 02/02/18 17:45 02/02/18 17:48 02/02/18 18:00 Temperature Pulse Rate 108 H 107 H 102 H Respiratory Rate 26 H 26 H 25 H Blood Pressure 205/118 H 199/117 H 194/117 H Pulse Oximetry 99 100 100 02/02/18 18:15 02/02/18 18:30 02/02/18 19:19 Temperature Pulse Rate 104 H 104 H Respiratory Rate 26 H 23 Blood Pressure 195/112 H 195/107 H Pulse Oximetry 99 100 100 02/02/18 19:22 02/02/18 20:00 02/02/18 20:15 Temperature 99.6 F Pulse Rate 110 H 112 H 109 H Respiratory Rate 20 29 H Blood Pressure 185/108 H Pulse Oximetry 97 100 02/02/18 20:30 02/02/18 20:45 02/02/18 21:00 Temperature Pulse Rate 109 H 111 H 108 H Respiratory Rate 22 31 H 22 Blood Pressure 187/105 H 186/106 H 170/88 H Pulse Oximetry 100 100 99 02/02/18 21:15 02/02/18 21:30 02/02/18 21:45 Temperature Pulse Rate 107 H 107 H 109 H Respiratory Rate 23 23 20 Blood Pressure 173/84 H 172/92 H 185/119 H Pulse Oximetry 99 99 98 02/02/18 22:00 02/02/18 22:01 02/02/18 22:15 Temperature Pulse Rate 106 H 107 H 107 H Respiratory Rate 23 24 25 H Blood Pressure 184/103 H 176/95 H Pulse Oximetry 99 100 100 02/02/18 22:30 02/02/18 22:45 02/02/18 23:00 Temperature Pulse Rate 110 H 106 H 105 H Respiratory Rate 23 20 19 Blood Pressure 189/100 H 171/95 H 187/103 H Pulse Oximetry 98 100 98 02/02/18 23:15 02/02/18 23:30 02/02/18 23:45 Temperature Pulse Rate 107 H 107 H 104 H Respiratory Rate 19 28 H 19 Blood Pressure 187/105 H 190/105 H 192/107 H Pulse Oximetry 99 99 99 02/03/18 00:00 02/03/18 00:15 02/03/18 00:30 Temperature Pulse Rate 106 H 107 H 105 H Respiratory Rate 20 24 21 Blood Pressure 180/105 H 185/108 H 187/109 H Pulse Oximetry 99 100 99 02/03/18 00:46 02/03/18 01:00 02/03/18 01:15 Temperature Pulse Rate 104 H 104 H 104 H Respiratory Rate 24 26 H 19 Blood Pressure 162/103 H 160/103 H 166/102 H Pulse Oximetry 100 99 99 02/03/18 01:30 02/03/18 01:45 02/03/18 02:00 Temperature Pulse Rate 102 H 105 H 105 H Respiratory Rate 20 24 19 Blood Pressure 170/101 H 175/101 H Pulse Oximetry 99 99 99 02/03/18 02:01 02/03/18 02:15 02/03/18 02:30 Temperature Pulse Rate 107 H 107 H 109 H Respiratory Rate 26 H 24 20 Blood Pressure 195/127 H 177/116 H 184/114 H Pulse Oximetry 100 99 98 02/03/18 02:45 02/03/18 03:00 02/03/18 03:15 Temperature Pulse Rate 108 H 104 H 110 H Respiratory Rate 19 19 29 H Blood Pressure 191/111 H 190/112 H 198/125 H Pulse Oximetry 98 97 99 02/03/18 03:30 02/03/18 03:45 02/03/18 04:00 Temperature Pulse Rate 106 H 108 H 107 H Respiratory Rate 19 21 19 Blood Pressure 164/96 H 178/102 H 168/95 H Pulse Oximetry 98 98 97 02/03/18 04:15 02/03/18 04:30 02/03/18 04:32 Temperature Pulse Rate 105 H 108 H 109 H Respiratory Rate 19 18 19 Blood Pressure 165/95 H 182/122 H 176/104 H Pulse Oximetry 98 97 99 02/03/18 04:45 02/03/18 05:00 02/03/18 05:15 Temperature Pulse Rate 107 H 106 H 108 H Respiratory Rate 22 20 26 H Blood Pressure 181/108 H 173/105 H 194/126 H Pulse Oximetry 96 97 96 02/03/18 05:30 02/03/18 05:45 02/03/18 06:00 Temperature Pulse Rate 109 H 107 H 109 H Respiratory Rate 22 21 23 Blood Pressure 177/110 H 167/105 H 167/103 H Pulse Oximetry 97 98 100 02/03/18 06:15 02/03/18 06:30 02/03/18 06:45 Temperature Pulse Rate 107 H 106 H 109 H Respiratory Rate 23 20 19 Blood Pressure 166/100 H 170/104 H 177/109 H Pulse Oximetry 99 98 98 02/03/18 07:00 02/03/18 07:15 02/03/18 07:46 Temperature Pulse Rate 112 H 107 H 109 H Respiratory Rate 22 27 H 18 Blood Pressure 181/120 H 173/104 H Pulse Oximetry 99 97 Intake & Output 02/02/18 02/03/18 02/03/18 18:59 06:59 18:59 Intake Total 2150 / 2150 1100 / 1100 Output Total 1850 / 1850 1200 / 1200 Balance 300 / 300 -100 / -100 Weight 68.2 kg Intake: IV 1150 / 1150 1100 / 1100 Cleviprex Inj 25 mg In 50 ml @ 150 / 150 100 / 100 1 MG/HR 2 mls/hr IV.CONT TITRATE PRN Rx#:[id number] NS Inj 1,000 ML @ 84 mls/hr IV. 1000 / 1000 1000 / 1000 CONT .[id number] TANJA Rx#:[id number] Oral 1000 / 1000 Output: Urine 1850 / 1850 1200 / 1200 Result Diagrams: 02/03/18 06:52 02/03/18 06:52 Other Results: Microbiology 02/01/18 11:21 Blood - Peripheral Aerobic Blood Culture - Preliminary No growth in 1 day 02/01/18 11:21 Blood - Peripheral Anaerobic Blood Culture - Preliminary No growth in 1 day 02/01/18 11:26 Blood - Peripheral Aerobic Blood Culture - Preliminary No growth in 1 day 02/01/18 11:26 Blood - Peripheral Anaerobic Blood Culture - Preliminary No growth in 1 day 02/01/18 10:56 Nasal Wash Influenza Types A,B Antigen - Final Negative for FLU A and B antigen Infection due to influenza A or B cannot be ruled out since the antigen present in the sample may be below the detection limit of the test. Imaging: Chest X-Ray 02/01/18 08:29 CONCLUSION: Under aerated with some peribronchial thickening. Inflammatory process is suspected. Head CT 02/01/18 09:03 CONCLUSION: 1. Negative for acute process . Abdomen/Bladder Ultrasound 02/01/18 10:21 CONCLUSION: 1. No hydronephrosis. 2. Mildly increased echogenicity indicate medical renal disease. Objective Remarks: GENERAL: 32-year-old -[place] male currently resting in bed in no acute distress SKIN: Warm and dry. HEAD: Atraumatic. Normocephalic. EYES: Pupils equal and round. No scleral icterus. No injection or drainage. No papilledema identified ENT: No nasal bleeding or discharge. Mucous membranes pink and moist. NECK: Trachea midline. No JVD. CARDIOVASCULAR: Tachycardic, RR. S1, S2. No prescription without murmur RESPIRATORY: No accessory muscle use. Clear to auscultation. Breath sounds equal bilaterally. GASTROINTESTINAL: Abdomen soft, non-tender, nondistended. MUSCULOSKELETAL: Extremities without clubbing, cyanosis, or edema. No obvious deformities. NEUROLOGICAL: Awake and alert. No obvious cranial nerve deficits. Motor grossly within normal limits. Five out of 5 muscle strength in the arms and legs. Normal speech. PSYCHIATRIC: Appropriate mood and affect; insight and judgment normal. Assessment and Plan - Problem List (1) Elevated troponin Code(s): R74.8 - Abnormal levels of other serum enzymes Status: Acute (2) Hyponatremia Code(s): E87.1 - Hypo-osmolality and hyponatremia Status: Acute (3) Hypopotassemia Code(s): E87.6 - Hypokalemia Status: Acute (4) Elevated AST (SGOT) Code(s): R74.0 - Nonspecific elevation of levels of transaminase and lactic acid dehydrogenase [LDH] Status: Acute (5) Thrombocytopenia Code(s): D69.6 - Thrombocytopenia, unspecified Status: Acute - Assessment and Plan Plan: Neuro/Psych: Headachecephalgia Acetaminophen 650 mg p.o. every 6 hours as needed fever Hydrocodone/acetaminophen 5/51 tablet every 4 hours as needed pain 1 through 5 Morphine sulfate 2 mg IV every 2 hours as needed pain 6 through 10 Drug toxicology screen negative CT brain revealed no acute findings CV: Hypertensive emergency Elevated troponin Started on verapamil 80 mg 3 times daily, hydralazine 50 mg 3 times daily and IsoSorbide dinitrate 5 mg 3 times daily Currently on as needed labetalol, hydralazine Nitropaste to keep systolic blood pressure less than 180, diastolic less than 100 Clevidipine drip as indicated Serial troponins. Cycle until downtrending. Currently 0.19. Likely secondary to hypertensive crisis/strain EKG revealed sinus tachycardia with LVH. Echocardiogram concentric left ventricular hypertrophy left ventricular systolic function is normal with an estimated ejection fraction in the range of 55-60%. The left atrial size is mildly dilated. [id number] mitral valve regurgitation. There is trace tricuspid valve regurgitation. The estimated pulmonary arterial pressure is 32 mmHg. Renal ultrasound revealed cortical thinning indicative of medical renal disease. No hydronephrosis Resp: Nasal cannula to maintain saturations greater than or equal to 92% Incentive spirometry while awake As needed albuterol aerosols every 2 hours as needed dyspnea Chest x-ray revealed cardiomegaly but no significant pulmonary findings GI: Elevated AST Renal/cardiac diet Pantoprazole for GI prophylaxis Docusate sodium/senna 1 tablet twice daily for bowel regimen : Straight catheterization as needed Endo: Sliding scale insulin Accu-Cheks to maintain euglycemia aspart insulin Check TSH and cortisol was 27 Renal: Acute kidney injury -unknown baseline with proteinuria Negative urine eosinophils Avoid nephrotoxic medication Monitor urine output Accurate I's and O's Nephrology consultation appreciated with workup in process Pheochromocytoma workup per nephrology. Including metanephrines and normetanephrine's still pending Renin, aldosterone pending workup Proteinuria urine/workup Heme: normocytic anemia Monitor CBC daily. Follow trends. No indication for transfusion of blood products at this time ID: Blood cultures x2, influenza a and B negative Monitor for signs and symptomatology of infection FEN: Hypopotassemia Replace electrolytes as clinically indicated Low n urinary potassium MSK: Out of bed/PT evaluate and treat Access -Utilize peripheral IV. Central line if indicated Prophylaxis -GI -pantoprazole -DVT-SCD/holding pharmacological prophylaxis with high blood pressure. Resume 02/04 Level 2 follow-up
[2018-02-03] MEDS ORDERED: fentaNYL Citrate Inj 250 MCG/5 ML Ampul ONE (09:24)
[2018-02-03] MEDS ORDERED: *Heparin 10,000 UNITS/10 ML Vial Periprocedural ONLY ONE (09:39)
[2018-02-03] MEDS ORDERED: Lidocaine 1%/Epinephrine 1:100,000 Inj 30 ML Vial ONE (09:39)
[2018-02-03] MEDS ORDERED: ceFAZolin 2 GM Premix Inj 2 GM/50 ML PIGGYBACK IV.SIG SCH (10:00)
[2018-02-03] MEDS ORDERED: Vancomycin Inj 1,000 MG in Sodium Chlor 0.9% Inj 250 ML IV.SIG SCH (10:00)
--- NOTE | 2018-02-03 10:08 | P.RAD ---
Post Procedure Progress Note - Pre Procedure Diagnosis (1) Acute renal failure - Post Procedure Diagnosis (1) Acute renal failure - Procedure Information Supervising Radiologist: Uriel Greer MD Anesthesia: Local - Plan of Activity Patient to Unit: Nursing Unit Patient Condition: Good See PACS Report for procedural detail/treatment. [facility] Radiology Procedures right Internal Jugular Hemodialysis Catheter Tunneled Placement Device: dual lumen
--- NOTE | 2018-02-03 10:27 | IR ---
EXAM DATE: 02/03/2018 10:20 AM EST AGE/SEX: 32 years / Male INDICATIONS: Patient with a history of acute kidney injury. CLINICAL DATA: This is the patient's initial encounter. Patient reports that signs and symptoms have been present for 3 days and indicates a pain score of 0/10. MEDICAL/SURGICAL HISTORY: . . COMPARISON: No prior exams available for comparison. FLUORO TIME (min): 0.24 IMAGE SERIES: 1 ACCESS SITE: Right internal jugular vein SEDATION TIME (min): 15 MEDICATION(S): 2mg midazolam (Versed) IV 150mcg fentanyl (Sublimaze) IV DEVICE(S): 19cm permcath . . PROCEDURE: 1. Ultrasound-guided venipuncture. 2. PermaCath placement. 3. Conscious sedation with continuous EKG and oximetry monitoring. The risks, benefits and alternatives to the procedure were explained and verbal and written consent w as obtained. The site was prepped in sterile fashion. Full sterile technique was used, including ca p, mask, sterile gloves and gown and a large sterile sheet. Hand hygiene and 2% chlorhexidine and/or betadine/alcohol prep was utilized per protocol for cutaneous antisepsis. Sterile gel and sterile p robe cover were utilized for ultrasound guidance. The skin and subcutaneous tissues were infiltrated with local anesthetic solution. With ultrasound and fluoroscopic guidance a dermatotomy was created over the prescribed vein. A micr opuncture set was used to access the targeted vein and serial dilatation was performed to accept the prescribed length catheter. A subcutaneous tunnel was created in a retrograde fashion the catheter w as pulled through the tunnel. The catheter was flushed and assembled and locked with heparin. The c atheter was sutured in place. Conscious sedation was performed with the prescribed dosages and duration as above in the presence of an independent trained radiology nurse to assist in the monitoring of the patient. EKG and oximetry remained stable throughout the procedure. The patient tolerated the procedure well and there were n o complications. The patient was sent to post anesthesia recovery in stable condition. CONCLUSION: 1. Uncomplicated PermaCath placement as above. Electronically signed by: Uriel Greer MD Board Certified Radiologist 02/03/2018 10:25 AM EST
--- NOTE | 2018-02-03 12:41 | P.PNNP ---
Subjective Interval history: Patient was seen, no distress, s/p right Internal Jugular Hemodialysis Catheter Tunneled Placement. Patient to be dialyzed today. was at bedside. <Gelacio Rosenbaum - Last Filed: 02/03/18 13:53> Physical Exam Vital signs: Vital Signs 02/02/18 12:46 02/02/18 13:00 02/02/18 13:15 Temperature Pulse Rate 100 H 99 H 97 H Respiratory Rate 20 23 24 Blood Pressure 160/86 H 159/81 H 128/66 Pulse Oximetry 98 97 99 02/02/18 13:30 02/02/18 13:45 02/02/18 13:49 Temperature Pulse Rate 91 H 98 H 93 H Respiratory Rate 23 20 22 Blood Pressure 170/96 H 213/131 H 200/123 H Pulse Oximetry 99 100 100 02/02/18 14:00 02/02/18 14:15 02/02/18 14:31 Temperature Pulse Rate 93 H 91 H 91 H Respiratory Rate 24 27 H 20 Blood Pressure 181/107 H 192/106 H 172/93 H Pulse Oximetry 100 100 100 02/02/18 14:45 02/02/18 15:00 02/02/18 15:15 Temperature Pulse Rate 93 H 97 H 95 H Respiratory Rate 20 19 20 Blood Pressure 180/95 H 179/100 H 181/103 H Pulse Oximetry 100 100 100 02/02/18 15:30 02/02/18 15:34 02/02/18 15:45 Temperature Pulse Rate 95 H 97 H 102 H Respiratory Rate 21 18 21 Blood Pressure 185/106 H 194/114 H Pulse Oximetry 99 100 02/02/18 16:00 02/02/18 16:15 02/02/18 16:30 Temperature Pulse Rate 106 H 102 H 102 H Respiratory Rate 24 21 27 H Blood Pressure 197/113 H 195/110 H 167/79 H Pulse Oximetry 99 98 100 02/02/18 16:45 02/02/18 17:00 02/02/18 17:15 Temperature Pulse Rate 101 H 98 H 101 H Respiratory Rate 31 H 19 22 Blood Pressure 180/105 H 175/97 H 191/113 H Pulse Oximetry 99 100 100 02/02/18 17:30 02/02/18 17:45 02/02/18 17:48 Temperature Pulse Rate 100 H 108 H 107 H Respiratory Rate 17 26 H 26 H Blood Pressure 194/112 H 205/118 H 199/117 H Pulse Oximetry 100 99 100 02/02/18 18:00 02/02/18 18:15 02/02/18 18:30 Temperature Pulse Rate 102 H 104 H 104 H Respiratory Rate 25 H 26 H 23 Blood Pressure 194/117 H 195/112 H 195/107 H Pulse Oximetry 100 99 100 02/02/18 19:19 02/02/18 19:22 02/02/18 20:00 Temperature Pulse Rate 110 H 112 H Respiratory Rate 20 Blood Pressure Pulse Oximetry 100 97 02/02/18 20:15 02/02/18 20:30 02/02/18 20:45 Temperature 99.6 F Pulse Rate 109 H 109 H 111 H Respiratory Rate 29 H 22 31 H Blood Pressure 185/108 H 187/105 H 186/106 H Pulse Oximetry 100 100 100 02/02/18 21:00 02/02/18 21:15 02/02/18 21:30 Temperature Pulse Rate 108 H 107 H 107 H Respiratory Rate 22 23 23 Blood Pressure 170/88 H 173/84 H 172/92 H Pulse Oximetry 99 99 99 02/02/18 21:45 02/02/18 22:00 02/02/18 22:01 Temperature Pulse Rate 109 H 106 H 107 H Respiratory Rate 20 23 24 Blood Pressure 185/119 H 184/103 H Pulse Oximetry 98 99 100 02/02/18 22:15 02/02/18 22:30 02/02/18 22:45 Temperature Pulse Rate 107 H 110 H 106 H Respiratory Rate 25 H 23 20 Blood Pressure 176/95 H 189/100 H 171/95 H Pulse Oximetry 100 98 100 02/02/18 23:00 02/02/18 23:15 02/02/18 23:30 Temperature Pulse Rate 105 H 107 H 107 H Respiratory Rate 19 19 28 H Blood Pressure 187/103 H 187/105 H 190/105 H Pulse Oximetry 98 99 99 02/02/18 23:45 02/03/18 00:00 02/03/18 00:15 Temperature Pulse Rate 104 H 106 H 107 H Respiratory Rate 19 20 24 Blood Pressure 192/107 H 180/105 H 185/108 H Pulse Oximetry 99 99 100 02/03/18 00:30 02/03/18 00:46 02/03/18 01:00 Temperature Pulse Rate 105 H 104 H 104 H Respiratory Rate 21 24 26 H Blood Pressure 187/109 H 162/103 H 160/103 H Pulse Oximetry 99 100 99 02/03/18 01:15 02/03/18 01:30 02/03/18 01:45 Temperature Pulse Rate 104 H 102 H 105 H Respiratory Rate 19 20 24 Blood Pressure 166/102 H 170/101 H 175/101 H Pulse Oximetry 99 99 99 02/03/18 02:00 02/03/18 02:01 02/03/18 02:15 Temperature Pulse Rate 105 H 107 H 107 H Respiratory Rate 19 26 H 24 Blood Pressure 195/127 H 177/116 H Pulse Oximetry 99 100 99 02/03/18 02:30 02/03/18 02:45 02/03/18 03:00 Temperature Pulse Rate 109 H 108 H 104 H Respiratory Rate 20 19 19 Blood Pressure 184/114 H 191/111 H 190/112 H Pulse Oximetry 98 98 97 02/03/18 03:15 02/03/18 03:30 02/03/18 03:45 Temperature Pulse Rate 110 H 106 H 108 H Respiratory Rate 29 H 19 21 Blood Pressure 198/125 H 164/96 H 178/102 H Pulse Oximetry 99 98 98 02/03/18 04:00 02/03/18 04:15 02/03/18 04:30 Temperature Pulse Rate 107 H 105 H 108 H Respiratory Rate 19 19 18 Blood Pressure 168/95 H 165/95 H 182/122 H Pulse Oximetry 97 98 97 02/03/18 04:32 02/03/18 04:45 02/03/18 05:00 Temperature Pulse Rate 109 H 107 H 106 H Respiratory Rate 19 22 20 Blood Pressure 176/104 H 181/108 H 173/105 H Pulse Oximetry 99 96 97 02/03/18 05:15 02/03/18 05:30 02/03/18 05:45 Temperature Pulse Rate 108 H 109 H 107 H Respiratory Rate 26 H 22 21 Blood Pressure 194/126 H 177/110 H 167/105 H Pulse Oximetry 96 97 98 02/03/18 06:00 02/03/18 06:15 02/03/18 06:30 Temperature Pulse Rate 109 H 107 H 106 H Respiratory Rate 23 23 20 Blood Pressure 167/103 H 166/100 H 170/104 H Pulse Oximetry 100 99 98 02/03/18 06:45 02/03/18 07:00 02/03/18 07:15 Temperature Pulse Rate 109 H 112 H 107 H Respiratory Rate 19 22 27 H Blood Pressure 177/109 H 181/120 H 173/104 H Pulse Oximetry 98 99 97 02/03/18 07:46 02/03/18 08:00 Temperature Pulse Rate 109 H 104 H Respiratory Rate 18 Blood Pressure Pulse Oximetry 100 Intake & Output 02/02/18 02/03/18 02/03/18 18:59 06:59 18:59 Intake Total 2150 / 2150 1100 / 1100 50 / 50 Output Total 1850 / 1850 1200 / 1200 450 / 450 Balance 300 / 300 -100 / -100 -400 / -400 Weight 68.2 kg Intake: IV 1150 / 1150 1100 / 1100 50 / 50 Cleviprex Inj 25 mg In 50 ml @ 150 / 150 100 / 100 50 / 50 1 MG/HR 2 mls/hr IV.CONT TITRATE PRN Rx#:[id number] NS Inj 1,000 ML @ 84 mls/hr IV. 1000 / 1000 1000 / 1000 CONT .[id number] TANJA Rx#:[id number] Oral 1000 / 1000 Output: Urine 1850 / 1850 1200 / 1200 450 / 450 - Constitutional no acute distress - Routine HEENT Exam Head: Present: normocephalic Eye: Present: EOMI, PERRL ENT: Present: mucous membranes moist - Routine Neck Exam Present: trachea midline. Absent: tracheal deviation - Routine Respiratory Exam Present: accessory muscle use, CTA bilaterally. Absent: respiratory distress - Routine Cardiovascular Exam Present: RRR, tachycardia - Routine Abdominal Exam Present: normoactive bowel sounds. Absent: tenderness - Routine Extremities Exam Present: pulses intact. Absent: cyanosis, edema - Routine Neurological Exam Present: alert, oriented X3 <RobiGelacio - Last Filed: 02/03/18 13:53> Vital signs: Vital Signs 02/02/18 21:15 02/02/18 21:30 02/02/18 21:45 Temperature Pulse Rate 107 H 107 H 109 H Respiratory Rate 23 23 20 Blood Pressure 173/84 H 172/92 H 185/119 H Pulse Oximetry 99 99 98 02/02/18 22:00 02/02/18 22:01 02/02/18 22:15 Temperature Pulse Rate 106 H 107 H 107 H Respiratory Rate 23 24 25 H Blood Pressure 184/103 H 176/95 H Pulse Oximetry 99 100 100 02/02/18 22:30 02/02/18 22:45 02/02/18 23:00 Temperature Pulse Rate 110 H 106 H 105 H Respiratory Rate 23 20 19 Blood Pressure 189/100 H 171/95 H 187/103 H Pulse Oximetry 98 100 98 02/02/18 23:15 02/02/18 23:30 02/02/18 23:45 Temperature Pulse Rate 107 H 107 H 104 H Respiratory Rate 19 28 H 19 Blood Pressure 187/105 H 190/105 H 192/107 H Pulse Oximetry 99 99 99 02/03/18 00:00 02/03/18 00:15 02/03/18 00:30 Temperature Pulse Rate 106 H 107 H 105 H Respiratory Rate 20 24 21 Blood Pressure 180/105 H 185/108 H 187/109 H Pulse Oximetry 99 100 99 02/03/18 00:46 02/03/18 01:00 02/03/18 01:15 Temperature Pulse Rate 104 H 104 H 104 H Respiratory Rate 24 26 H 19 Blood Pressure 162/103 H 160/103 H 166/102 H Pulse Oximetry 100 99 99 02/03/18 01:30 02/03/18 01:45 02/03/18 02:00 Temperature Pulse Rate 102 H 105 H 105 H Respiratory Rate 20 24 19 Blood Pressure 170/101 H 175/101 H Pulse Oximetry 99 99 99 02/03/18 02:01 02/03/18 02:15 02/03/18 02:30 Temperature Pulse Rate 107 H 107 H 109 H Respiratory Rate 26 H 24 20 Blood Pressure 195/127 H 177/116 H 184/114 H Pulse Oximetry 100 99 98 02/03/18 02:45 02/03/18 03:00 02/03/18 03:15 Temperature Pulse Rate 108 H 104 H 110 H Respiratory Rate 19 19 29 H Blood Pressure 191/111 H 190/112 H 198/125 H Pulse Oximetry 98 97 99 02/03/18 03:30 02/03/18 03:45 02/03/18 04:00 Temperature Pulse Rate 106 H 108 H 107 H Respiratory Rate 19 21 19 Blood Pressure 164/96 H 178/102 H 168/95 H Pulse Oximetry 98 98 97 02/03/18 04:15 02/03/18 04:30 02/03/18 04:32 Temperature Pulse Rate 105 H 108 H 109 H Respiratory Rate 19 18 19 Blood Pressure 165/95 H 182/122 H 176/104 H Pulse Oximetry 98 97 99 02/03/18 04:45 02/03/18 05:00 02/03/18 05:15 Temperature Pulse Rate 107 H 106 H 108 H Respiratory Rate 22 20 26 H Blood Pressure 181/108 H 173/105 H 194/126 H Pulse Oximetry 96 97 96 02/03/18 05:30 02/03/18 05:45 02/03/18 06:00 Temperature Pulse Rate 109 H 107 H 109 H Respiratory Rate 22 21 23 Blood Pressure 177/110 H 167/105 H 167/103 H Pulse Oximetry 97 98 100 02/03/18 06:15 02/03/18 06:30 02/03/18 06:45 Temperature Pulse Rate 107 H 106 H 109 H Respiratory Rate 23 20 19 Blood Pressure 166/100 H 170/104 H 177/109 H Pulse Oximetry 99 98 98 02/03/18 07:00 02/03/18 07:15 02/03/18 07:46 Temperature Pulse Rate 112 H 107 H 109 H Respiratory Rate 22 27 H 18 Blood Pressure 181/120 H 173/104 H Pulse Oximetry 99 97 02/03/18 08:00 02/03/18 10:21 02/03/18 10:51 Temperature Pulse Rate 104 H 104 H 100 H Respiratory Rate 20 Blood Pressure 178/112 H 167/94 H Pulse Oximetry 100 96 93 L 02/03/18 11:21 02/03/18 11:51 02/03/18 12:00 Temperature 98.8 F Pulse Rate 101 H 99 H 97 H Respiratory Rate Blood Pressure 166/95 H 168/63 H 157/85 H Pulse Oximetry 90 L 92 L 90 L 02/03/18 12:21 02/03/18 14:00 02/03/18 16:00 Temperature 98.7 F Pulse Rate 100 H 99 H 103 H Respiratory Rate 26 H 20 Blood Pressure 168/101 H 148/84 H Pulse Oximetry 92 L 02/03/18 18:00 02/03/18 20:22 Temperature Pulse Rate 100 H Respiratory Rate Blood Pressure Pulse Oximetry 96 Intake & Output 02/03/18 02/03/18 02/04/18 06:59 18:59 06:59 Intake Total 1100 / 1100 1979 / 1979 Output Total 1200 / 1200 1250 / 1250 1000 / 1000 Balance -100 / -100 730 / 730 -1000 / -1000 Weight 68.2 kg Intake: IV 1100 / 1100 1500 / 1500 Cleviprex Inj 25 mg In 50 ml @ 100 / 100 200 / 200 1 MG/HR 2 mls/hr IV.CONT TITRATE PRN Rx#:[id number] NS Inj 1,000 ML @ 84 mls/hr IV. 1000 / 1000 1000 / 1000 CONT .[id number] TANJA Rx#:[id number] Vancomycin Inj 1,000 MG In NS 250 / 250 Inj 250 ML @ 250 mls/hr IV.SIG [facility] TANJA Rx#:[id number] Ancef 2 GM Premix Inj 2 gm In 50 / 50 50 ml @ 100 mls/hr IV.SIG [facility] TANJA Rx#:[id number] Oral 480 / 480 Output: Urine 1200 / 1200 1250 / 1250 Hemodialysis Amount 1000 / 1000 <Deejay Whitten - Last Filed: 02/03/18 21:08> Assessment and Plan - Assessment (1) Acute renal failure Code(s): N17.9 - Acute kidney failure, unspecified Status: Acute Qualifiers: Acute renal failure type: unspecified Qualified Code(s): N17.9 - Acute kidney failure, unspecified Plan: Patient appears to have underlying CKD. We have no baseline lab work for the patient. Hypertensive crisis could be due to renal failure or acute renal failure could be due to malignant hypertension. Creatinine is 7.51 today. Patient got right Internal Jugular Hemodialysis Catheter Tunneled Placement and patient to be dialyzed today. Avoid nephrotoxic agents. Monitor fluid and electrolytes. (2) Hypopotassemia Code(s): E87.6 - Hypokalemia Status: Acute Plan: Patient given Potassium supplement yesterday and K is 2.9 today. Potassium should improve with dialysis. Monitor for improvement. (3) Hypertensive emergency Code(s): I16.1 - Hypertensive emergency Status: Acute Plan: Patient given IVP Metoprolol in the ED. Currently on Cleviprex drip. BP improved but still hypertensive. Also on Hydralazine and Labetalol. Monitor BP. <Gelacio Rosenbaum - Last Filed: 02/03/18 13:53> - Assessment (1) Acute renal failure Code(s): N17.9 - Acute kidney failure, unspecified Status: Acute Qualifiers: Acute renal failure type: unspecified Qualified Code(s): N17.9 - Acute kidney failure, unspecified (2) Hypopotassemia Code(s): E87.6 - Hypokalemia Status: Acute (3) Hypertensive emergency Code(s): I16.1 - Hypertensive emergency Status: Acute - Attending Attestation patient was seen and examined. BP remains high. I have changed Verapamil to long acting Cardizem. Added Losartan. Persistent hypokalemia is noted, etiology is unclear. Aldosterone/PRA ratio is ordered results pending. Dialysis today and tomorrow. We discussed renal biopsy. Will plan on renal biopsy if BP control improves next week. <Deejay Whitten - Last Filed: 02/03/18 21:08>
[2018-02-03] MEDS: hydrALAZINE 50 MG Tablet PO SCH ×2 (12:54→18:32)
[2018-02-03] MEDS: Acetaminophen 325 MG Tablet PO PRN (14:36)
[2018-02-03] MEDS ORDERED: dilTIAZem CD 180 MG Capsule PO ONE (14:50)
[2018-02-04] MEDS: Senna/Docusate Sodium 8.6/50 MG Tablet PO SCH ×3 (01:38→20:40)
[2018-02-04] MEDS: hydrALAZINE HCl Inj 20 MG/ML Vial IV.PUSH PRN (03:45)
[2018-02-04 05:09] LABS: Baso # (Auto) 0.1 th/mm3 (0.0-0.2); Baso % (Auto) 1.1 % (0.0-2.0); Eos # (Auto) 0.1 th/mm3 (0.0-0.4); Eos % (Auto) 1.1 % (0.0-4.0); Hemoglobin 10.5 gm/dL (13.0-17.0); Lymph # (Auto) 1.6 th/mm3 (1.0-4.8); Lymph % (Auto) 16.7 % (9.0-44.0); Mean Corpuscular Hemoglobin 30.8 pg (27.0-34.0); Mean Platelet Volume 9.2 fL (7.0-11.0); Mono # (Auto) 0.5 th/mm3 (0.0-0.9); Mono % (Auto) 5.5 % (0.0-8.0); Neut # (Auto) 7.4 th/mm3 (1.8-7.7); Neut % (Auto) 75.6 % (16.0-70.0); Platelet Count 162 th/mm3 (150-450); Red Blood Count 3.41 mil/mm3 (4.50-5.90); Red Cell Distribution Width 15.6 % (11.6-17.2); White Blood Count 9.8 th/mm3 (4.0-11.0)
[2018-02-04] MEDS: Chlorhexidine Gluconate 2% 1 Pack (2 Cloths) TOPICAL SCH (05:25)
[2018-02-04 05:26] LABS: Phosphorus 4.7 mg/dL (2.5-4.9)
[2018-02-04 05:34] LABS: Calcium 8.6 mg/dL (8.5-10.1); Carbon Dioxide 23.9 meq/L (21.0-32.0); Magnesium 2.2 mg/dL (1.5-2.5); Potassium 3.4 meq/L (3.5-5.1)
[2018-02-04] MEDS: Sod Chloride 0.9% Inj 1,000 ML IV.CONT SCH (06:30)
[2018-02-04] MEDS: hydrALAZINE 50 MG Tablet PO SCH ×2 (08:15→12:15)
--- NOTE | 2018-02-04 08:55 | P.PNCC ---
Subjective Subjective Remarks/Hospital Course: This is a 32-year-old AA male. Date of admission 02/01/2018. Past medical history includes EtOH and smoking. Patient is on no medications. For the past 2-3 weeks patient has been experiencing generalized malaise including headaches , chest pain, shortness of breath vague abdominal pain. Patient presented to [facility] ED for further evaluation treatment. Upon arrival, patient had elevated systolic blood pressure in the 260s diastolic in the 180s. Received 3 doses of 2.5 mg of IV metoprolol. EKG revealed sinus tachycardia with significant LVH. 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 He has potassium of 2.5. Creatinine of 7.5. Troponin 0 0.19. Patient is thrombocytopenic. Patient systolic blood pressure is currently 230. He still expressing malaise. We are estimate the patient. Nephrology consult. Echocardiogram and renal ultrasound all currently pending. 02/02: Renal ultrasound revealed medical renal disease. Echocardiogram EF normal. Pheochromocytoma and primary aldosteronism workup in process. Noted low potassium which fits with aldosterone. Playing of a headache requesting acetaminophen. 02/03: Afebrile. Remains on clevidipine drip but weaning down. Denies headache or chest pain currently. Plan for tunneled he will Vas-Cath today with dialysis to follow. Subjective 02/04: Afebrile. Currently off clevidipine drip. On losartan 50 mg daily, hydralazine 50 mg 3 times daily and isosorbide dinitrate 10 mg 3 times daily. Elevated renal level noted. Elevated elevated plasma nor metanephrines with normal metanephrines. Placed right tunneled hemodialysis catheter yesterday. Objective Vital Signs / I&O: Vital Signs 02/03/18 10:21 02/03/18 10:51 02/03/18 11:21 Temperature Pulse Rate 104 H 100 H 101 H Respiratory Rate 20 Blood Pressure 178/112 H 167/94 H 166/95 H Pulse Oximetry 96 93 L 90 L 02/03/18 11:51 02/03/18 12:00 02/03/18 12:21 Temperature 98.8 F Pulse Rate 99 H 97 H 100 H Respiratory Rate 26 H Blood Pressure 168/63 H 157/85 H 168/101 H Pulse Oximetry 92 L 90 L 02/03/18 14:00 02/03/18 16:00 02/03/18 16:15 Temperature 98.7 F Pulse Rate 99 H 99 H 100 H Respiratory Rate 21 21 Blood Pressure 148/84 H 146/83 H Pulse Oximetry 96 93 L 02/03/18 16:30 02/03/18 16:45 02/03/18 17:00 Temperature Pulse Rate 100 H 100 H 102 H Respiratory Rate 20 24 33 H Blood Pressure 151/86 H 155/92 H 160/94 H Pulse Oximetry 91 L 90 L 90 L 02/03/18 17:15 02/03/18 17:30 02/03/18 17:45 Temperature Pulse Rate 104 H 104 H 104 H Respiratory Rate 18 26 H 26 H Blood Pressure 158/88 H 165/86 H 157/85 H Pulse Oximetry 90 L 90 L 88 L 02/03/18 18:00 02/03/18 18:15 02/03/18 18:30 Temperature Pulse Rate 104 H 100 H 99 H Respiratory Rate 28 H 26 H 30 H Blood Pressure 159/84 H 157/86 H 166/90 H Pulse Oximetry 89 L 95 95 02/03/18 18:45 02/03/18 19:00 02/03/18 19:15 Temperature Pulse Rate 100 H 101 H 97 H Respiratory Rate 32 H 27 H 31 H Blood Pressure 149/90 H 152/89 H 148/85 H Pulse Oximetry 95 96 98 02/03/18 19:30 02/03/18 19:45 02/03/18 20:00 Temperature Pulse Rate 96 H 96 H 96 H Respiratory Rate 28 H 15 28 H Blood Pressure 150/83 H 156/97 H 156/98 H Pulse Oximetry 99 100 100 02/03/18 20:15 02/03/18 20:22 02/03/18 20:30 Temperature Pulse Rate 92 H 96 H Respiratory Rate 26 H 27 H Blood Pressure 157/100 H 160/111 H Pulse Oximetry 98 96 96 02/03/18 20:45 02/03/18 21:00 02/03/18 22:00 Temperature Pulse Rate 96 H 99 H 94 H Respiratory Rate 26 H 26 H 21 Blood Pressure 163/94 H 158/110 H 162/98 H Pulse Oximetry 99 100 100 02/03/18 23:00 02/04/18 00:00 02/04/18 01:00 Temperature Pulse Rate 92 H 92 H 93 H Respiratory Rate 21 22 24 Blood Pressure 152/92 H 161/106 H 168/111 H Pulse Oximetry 98 97 96 02/04/18 02:00 02/04/18 03:00 02/04/18 03:05 Temperature Pulse Rate 91 H 91 H 91 H Respiratory Rate 23 18 19 Blood Pressure 171/116 H 172/118 H 168/101 H Pulse Oximetry 97 99 99 02/04/18 03:30 02/04/18 03:31 02/04/18 03:32 Temperature Pulse Rate 90 91 H 91 H Respiratory Rate 20 16 14 Blood Pressure 180/120 H 180/121 H 180/120 H Pulse Oximetry 98 97 97 02/04/18 04:00 02/04/18 04:30 02/04/18 04:39 Temperature Pulse Rate 96 H 96 H 94 H Respiratory Rate 18 22 20 Blood Pressure 169/112 H 167/111 H Pulse Oximetry 96 98 02/04/18 05:00 02/04/18 05:30 02/04/18 06:00 Temperature Pulse Rate 98 H 101 H 102 H Respiratory Rate 24 26 H 25 H Blood Pressure 174/107 H 184/109 H 170/110 H Pulse Oximetry 96 95 95 02/04/18 07:59 Temperature Pulse Rate Respiratory Rate Blood Pressure Pulse Oximetry 97 Intake & Output 02/03/18 02/04/18 02/04/18 18:59 06:59 18:59 Intake Total 1979 / 1979 1480 / 1480 Output Total 1250 / 1250 1800 / 1800 0 / 0 Balance 730 / 730 -320 / -320 82 Weight 68.9 kg Intake: IV 1500 / 1500 1000 / 1000 Cleviprex Inj 25 mg In 50 ml @ 200 / 200 1 MG/HR 2 mls/hr IV.CONT TITRATE PRN Rx#:[id number] NS Inj 1,000 ML @ 84 mls/hr IV. 1000 / 1000 1000 / 1000 CONT .[id number] TANJA Rx#:[id number] Vancomycin Inj 1,000 MG In NS 250 / 250 Inj 250 ML @ 250 mls/hr IV.SIG [employer] TANJA Rx#:[id number] Ancef 2 GM Premix Inj 2 gm In 50 / 50 50 ml @ 100 mls/hr IV.SIG [facility] TANJA Rx#:[id number] Oral 480 / 480 480 / 480 Output: Urine 1250 / 1250 800 / 800 0 / 0 Hemodialysis Amount 1000 / 1000 Result Diagrams: 02/04/18 04:30 02/04/18 04:30 Other Results: Microbiology 02/01/18 11:21 Blood - Peripheral Aerobic Blood Culture - Preliminary No growth in 2 days 02/01/18 11:21 Blood - Peripheral Anaerobic Blood Culture - Preliminary No growth in 2 days 02/01/18 11:26 Blood - Peripheral Aerobic Blood Culture - Preliminary No growth in 2 days 02/01/18 11:26 Blood - Peripheral Anaerobic Blood Culture - Preliminary No growth in 2 days 02/01/18 10:56 Nasal Wash Influenza Types A,B Antigen - Final Negative for FLU A and B antigen Infection due to influenza A or B cannot be ruled out since the antigen present in the sample may be below the detection limit of the test. Imaging: Impressions Central Venous Line 02/03/18 00:00 CONCLUSION: 1. Uncomplicated PermaCath placement as above. Objective Remarks: GENERAL: 32-year-old -[place] male currently resting in bed in no acute distress SKIN: Warm and dry. HEAD: Atraumatic. Normocephalic. EYES: Pupils equal and round. No scleral icterus. No injection or drainage. No papilledema identified ENT: No nasal bleeding or discharge. Mucous membranes pink and moist. NECK: Trachea midline. No JVD. Right IJ tunneled cuffed catheter for hemodialysis clean dry and intact CARDIOVASCULAR: Tachycardic, RR. S1, S2. No prescription without murmur RESPIRATORY: No accessory muscle use. Clear to auscultation. Breath sounds equal bilaterally. GASTROINTESTINAL: Abdomen soft, non-tender, nondistended. MUSCULOSKELETAL: Extremities without clubbing, cyanosis, or edema. No obvious deformities. NEUROLOGICAL: Awake and alert. No obvious cranial nerve deficits. Motor grossly within normal limits. Five out of 5 muscle strength in the arms and legs. Normal speech. PSYCHIATRIC: Appropriate mood and affect; insight and judgment normal. Assessment and Plan - Problem List (1) Elevated troponin Code(s): R74.8 - Abnormal levels of other serum enzymes Status: Acute (2) Hyponatremia Code(s): E87.1 - Hypo-osmolality and hyponatremia Status: Acute (3) Hypopotassemia Code(s): E87.6 - Hypokalemia Status: Acute (4) Elevated AST (SGOT) Code(s): R74.0 - Nonspecific elevation of levels of transaminase and lactic acid dehydrogenase [LDH] Status: Acute (5) Thrombocytopenia Code(s): D69.6 - Thrombocytopenia, unspecified Status: Acute - Assessment and Plan Plan: Neuro/Psych: Headachecephalgia Acetaminophen 650 mg p.o. every 6 hours as needed fever Hydrocodone/acetaminophen 5/51 tablet every 4 hours as needed pain 1 through 5 Morphine sulfate 2 mg IV every 2 hours as needed pain 6 through 10 Drug toxicology screen negative CT brain revealed no acute findings CV: Hypertensive emergency Elevated troponin Currently on losartan 50 mg daily, hydralazine 50 mg 3 times daily and IsoSorbide [id number] mg 3 times daily Currently on as needed labetalol, hydralazine Nitropaste to keep systolic blood pressure less than 180, diastolic less than 100 Clevidipine drip as indicated Serial troponins. Cycle until downtrending. Currently 0.19. Likely secondary to hypertensive crisis/strain EKG revealed sinus tachycardia with LVH. Echocardiogram concentric left ventricular hypertrophy left ventricular systolic function is normal with an estimated ejection fraction in the range of 55-60%. The left atrial size is mildly dilated. [id number] mitral valve regurgitation. There is trace tricuspid valve regurgitation. The estimated pulmonary arterial pressure is 32 mmHg. Resp: Nasal cannula to maintain saturations greater than or equal to 92% Incentive spirometry while awake As needed albuterol aerosols every 2 hours as needed dyspnea Chest x-ray revealed cardiomegaly but no significant pulmonary findings GI: Elevated AST Renal/cardiac diet Pantoprazole for GI prophylaxis Docusate sodium/senna 1 tablet twice daily for bowel regimen : Straight catheterization as needed Endo: Sliding scale insulin Accu-Cheks to maintain euglycemia aspart insulin Check TSH and cortisol was 27 Renal: Acute kidney injury -unknown baseline with proteinuria Negative urine eosinophils Avoid nephrotoxic medication Monitor urine output Accurate I's and O's Nephrology consultation appreciated with workup in process Pheochromocytoma workup per nephrology. Including metanephrines was 0.39 nmol/ L and normetanephrine'elevated 1.3 nmol/L Renin was 66 ng/mL/h, aldosterone level pending Proteinuria urine/workup elevated Renal ultrasound revealed cortical thinning indicative of medical renal disease. No hydronephrosis Status post single vessel catheter placement 02/03 right tunneled IJ. Heme: normocytic anemia Monitor CBC daily. Follow trends. No indication for transfusion of blood products at this time ID: Blood cultures x2, influenza a and B negative Monitor for signs and symptomatology of infection FEN: Hypopotassemia Replace electrolytes as clinically indicated Low in urinary potassium MSK: Out of bed/PT evaluate and treat Access -Utilize peripheral IV. Central line if indicated Prophylaxis -GI -pantoprazole -DVT-SCD/holding pharmacological prophylaxis with high blood pressure. Resume 02/04 Level 2 follow-up
--- NOTE | 2018-02-04 10:45 | P.PNNP ---
Subjective Interval history: Patient seen, alert, no SOB, no headache or dizziness. Physical Exam Vital signs: Vital Signs 02/03/18 10:51 02/03/18 11:21 02/03/18 11:51 Temperature Pulse Rate 100 H 101 H 99 H Respiratory Rate Blood Pressure 167/94 H 166/95 H 168/63 H Pulse Oximetry 93 L 90 L 92 L 02/03/18 12:00 02/03/18 12:21 02/03/18 14:00 Temperature 98.8 F Pulse Rate 97 H 100 H 99 H Respiratory Rate 26 H Blood Pressure 157/85 H 168/101 H Pulse Oximetry 90 L 02/03/18 16:00 02/03/18 16:15 02/03/18 16:30 Temperature 98.7 F Pulse Rate 99 H 100 H 100 H Respiratory Rate 21 21 20 Blood Pressure 148/84 H 146/83 H 151/86 H Pulse Oximetry 96 93 L 91 L 02/03/18 16:45 02/03/18 17:00 02/03/18 17:15 Temperature Pulse Rate 100 H 102 H 104 H Respiratory Rate 24 33 H 18 Blood Pressure 155/92 H 160/94 H 158/88 H Pulse Oximetry 90 L 90 L 90 L 02/03/18 17:30 02/03/18 17:45 02/03/18 18:00 Temperature Pulse Rate 104 H 104 H 104 H Respiratory Rate 26 H 26 H 28 H Blood Pressure 165/86 H 157/85 H 159/84 H Pulse Oximetry 90 L 88 L 89 L 02/03/18 18:15 02/03/18 18:30 02/03/18 18:45 Temperature Pulse Rate 100 H 99 H 100 H Respiratory Rate 26 H 30 H 32 H Blood Pressure 157/86 H 166/90 H 149/90 H Pulse Oximetry 95 95 95 02/03/18 19:00 02/03/18 19:15 02/03/18 19:30 Temperature Pulse Rate 101 H 97 H 96 H Respiratory Rate 27 H 31 H 28 H Blood Pressure 152/89 H 148/85 H 150/83 H Pulse Oximetry 96 98 99 02/03/18 19:45 02/03/18 20:00 02/03/18 20:15 Temperature Pulse Rate 96 H 96 H 92 H Respiratory Rate 15 28 H 26 H Blood Pressure 156/97 H 156/98 H 157/100 H Pulse Oximetry 100 100 98 02/03/18 20:22 02/03/18 20:30 02/03/18 20:45 Temperature Pulse Rate 96 H 96 H Respiratory Rate 27 H 26 H Blood Pressure 160/111 H 163/94 H Pulse Oximetry 96 96 99 02/03/18 21:00 02/03/18 22:00 02/03/18 23:00 Temperature Pulse Rate 99 H 94 H 92 H Respiratory Rate 26 H 21 21 Blood Pressure 158/110 H 162/98 H 152/92 H Pulse Oximetry 100 100 98 02/04/18 00:00 02/04/18 01:00 02/04/18 02:00 Temperature Pulse Rate 92 H 93 H 91 H Respiratory Rate 22 24 23 Blood Pressure 161/106 H 168/111 H 171/116 H Pulse Oximetry 97 96 97 02/04/18 03:00 02/04/18 03:05 02/04/18 03:30 Temperature Pulse Rate 91 H 91 H 90 Respiratory Rate 18 19 20 Blood Pressure 172/118 H 168/101 H 180/120 H Pulse Oximetry 99 99 98 02/04/18 03:31 02/04/18 03:32 02/04/18 04:00 Temperature Pulse Rate 91 H 91 H 96 H Respiratory Rate 16 14 18 Blood Pressure 180/121 H 180/120 H 169/112 H Pulse Oximetry 97 97 96 02/04/18 04:30 02/04/18 04:39 02/04/18 05:00 Temperature Pulse Rate 96 H 94 H 98 H Respiratory Rate 22 20 24 Blood Pressure 167/111 H 174/107 H Pulse Oximetry 98 96 02/04/18 05:30 02/04/18 06:00 02/04/18 07:59 Temperature Pulse Rate 101 H 102 H Respiratory Rate 26 H 25 H Blood Pressure 184/109 H 170/110 H Pulse Oximetry 95 95 97 02/04/18 08:00 02/04/18 10:00 Temperature Pulse Rate 102 H 97 H Respiratory Rate Blood Pressure Pulse Oximetry 99 Intake & Output 02/03/18 02/04/18 02/04/18 18:59 06:59 18:59 Intake Total 1979 / 1979 1480 / 1480 332 / 332 Output Total 1250 / 1250 1800 / 1800 400 / 400 Balance 730 / 730 -320 / -320 -68 / -68 Weight 68.9 kg Intake: IV 1500 / 1500 1000 / 1000 82 / 82 Cleviprex Inj 25 mg In 50 ml @ 200 / 200 1 MG/HR 2 mls/hr IV.CONT TITRATE PRN Rx#:[id number] NS Inj 1,000 ML @ 84 mls/hr IV. 1000 / 1000 1000 / 1000 82 / 82 CONT .[id number] [facility] Rx#:[id number] Vancomycin Inj 1,000 MG In NS 250 / 250 Inj 250 ML @ 250 mls/hr IV.[employer] [facility] Rx#:[id number] Ancef 2 GM Premix Inj 2 gm In 50 / 50 50 ml @ 100 mls/hr IV.[employer] [facility] Rx#:[id number] Oral 480 / 480 480 / 480 250 / 250 Output: Urine 1250 / 1250 800 / 800 400 / 400 Hemodialysis Amount 1000 / 1000 - Constitutional no acute distress - Routine HEENT Exam Head: Present: normocephalic - Routine Neck Exam Present: supple, full ROM - Routine Respiratory Exam Present: decreased breath sounds, rhonchi, diminished air movement - Routine Cardiovascular Exam Present: RRR, S1, S2 - Routine Abdominal Exam Present: soft, normoactive bowel sounds, tenderness - Routine Extremities Exam Comments: No leg edema. Assessment and Plan - Assessment (1) Acute renal failure Code(s): N17.9 - Acute kidney failure, unspecified Status: Acute Qualifiers: Acute renal failure type: unspecified Qualified Code(s): N17.9 - Acute kidney failure, unspecified Plan: Patient appears to have underlying CKD. We have no baseline lab work for the patient. Hypertensive crisis could be due to renal failure or acute renal failure could be due to malignant hypertension. Creatinine remain elevated, HD again today, BP is elevated, will add Labetalol, follow the BP. Avoid nephrotoxic agents. Monitor fluid and electrolytes. (2) Hypopotassemia Code(s): E87.6 - Hypokalemia Status: Acute Plan: Patient given Potassium supplement yesterday and K is 2.9 today. Potassium should improve with dialysis. Monitor for improvement. (3) Hypertensive emergency Code(s): I16.1 - Hypertensive emergency Status: Acute Plan: Patient given IVP Metoprolol in the ED. Currently on Cleviprex drip. BP improved but still hypertensive. Also on Hydralazine and Labetalol. Monitor BP.
[2018-02-04] MEDS: Labetalol 100 MG Tablet PO SCH ×2 (11:58→20:40)
[2018-02-04] MEDS: Calcium Acetate 667 MG Capsule PO SCH ×2 (12:15→18:01)
[2018-02-04] MEDS: hydrALAZINE 25 MG Tablet PO SCH (18:01)
[2018-02-04] MEDS: Acetaminophen 325 MG Tablet PO PRN (19:48)
[2018-02-04] MEDS: Heparin - SQ 10,000 UNITS/ML Vial SQ SCH (20:40)
[2018-02-05] MEDS: Labetalol HCl Inj 100 MG/20 ML Vial IV.PUSH PRN (01:05)
[2018-02-05] MEDS: Chlorhexidine Gluconate 2% 1 Pack (2 Cloths) TOPICAL SCH (04:05)
[2018-02-05] MEDS: hydrALAZINE HCl Inj 20 MG/ML Vial IV.PUSH PRN ×2 (04:05→06:11)
[2018-02-05 04:41] LABS: Hematocrit 29.8 % (39.0-51.0); Hemoglobin 10.2 gm/dL (13.0-17.0); Mean Corpuscular HGB Conc 34.1 % (32.0-36.0); Mean Corpuscular Hemoglobin 30.6 pg (27.0-34.0); Mean Corpuscular Volume 89.7 fL (80.0-100.0); Mean Platelet Volume 9.4 fL (7.0-11.0); Platelet Count 150 th/mm3 (150-450); Red Blood Count 3.32 mil/mm3 (4.50-5.90); Red Cell Distribution Width 15.4 % (11.6-17.2)
[2018-02-05 05:09] LABS: Albumin 2.7 g/dL (3.4-5.0); Calcium 8.6 mg/dL (8.5-10.1); Carbon Dioxide 28.7 meq/L (21.0-32.0); Phosphorus 4.6 mg/dL (2.5-4.9); Potassium 3.6 meq/L (3.5-5.1)
[2018-02-05] MEDS: hydrALAZINE 25 MG Tablet PO SCH ×3 (08:01→17:21)
[2018-02-05] MEDS: Labetalol 100 MG Tablet PO SCH ×2 (08:01→20:52)
[2018-02-05] MEDS: Calcium Acetate 667 MG Capsule PO SCH ×3 (08:01→17:21)
[2018-02-05] MEDS: Senna/Docusate Sodium 8.6/50 MG Tablet PO SCH ×2 (08:02→20:53)
[2018-02-05] MEDS: Heparin - SQ 10,000 UNITS/ML Vial SQ SCH ×2 (08:02→20:52)
[2018-02-05] MEDS: Acetaminophen 325 MG Tablet PO PRN ×2 (08:54→18:33)
--- NOTE | 2018-02-05 10:33 | P.PNCC ---
Subjective Subjective Remarks/Hospital Course: This is a 32-year-old AA male. Date of admission 02/01/2018. Past medical history includes EtOH and smoking. Patient is on no medications. For the past 2-3 weeks patient has been experiencing generalized malaise including headaches , chest pain, shortness of breath vague abdominal pain. Patient presented to [place] ED for further evaluation treatment. Upon arrival, patient had elevated systolic blood pressure in the 260s diastolic in the 180s. Received 3 doses of 2.5 mg of IV metoprolol. EKG revealed sinus tachycardia with significant LVH. 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 He has potassium of 2.5. Creatinine of 7.5. Troponin 0 0.19. Patient is thrombocytopenic. Patient systolic blood pressure is currently 230. He still expressing malaise. We are estimate the patient. Nephrology consult. Echocardiogram and renal ultrasound all currently pending. 02/02: Renal ultrasound revealed medical renal disease. Echocardiogram EF normal. Pheochromocytoma and primary aldosteronism workup in process. Noted low potassium which fits with aldosterone. Playing of a headache requesting acetaminophen. 02/03: Afebrile. Remains on clevidipine drip but weaning down. Denies headache or chest pain currently. Plan for tunneled he will Vas-Cath today with dialysis to follow. 02/04: Afebrile. Currently off clevidipine drip. On losartan 50 mg daily, hydralazine 50 mg 3 times daily and isosorbide dinitrate 10 mg 3 times daily. Elevated renal level noted. Elevated elevated plasma nor metanephrines with normal metanephrines. Placed right tunneled hemodialysis catheter yesterday. Subjective 02/05: Afebrile. Currently off clevidipine drip. Labetalol added yesterday currently 100 mg twice daily. Aldosterone level still pending.. -1500 cc with hemodialysis yesterday. Urine output 1100 cc. Objective Vital Signs / I&O: Vital Signs 02/04/18 11:00 02/04/18 11:30 02/04/18 12:00 Temperature 98.4 F Pulse Rate 94 H 90 96 H Respiratory Rate 21 21 22 Blood Pressure 164/100 H 172/112 H 184/127 H Pulse Oximetry 99 100 100 02/04/18 12:15 02/04/18 12:31 12/15/18 12:45 Temperature Pulse Rate 98 H 92 H 88 Respiratory Rate 20 22 24 Blood Pressure 192/122 H 185/108 H 172/98 H Pulse Oximetry 100 100 100 02/04/18 13:00 02/04/18 13:15 02/04/18 13:30 Temperature Pulse Rate 90 90 87 Respiratory Rate 23 27 H 24 Blood Pressure 180/106 H 163/92 H 176/104 H Pulse Oximetry 100 100 100 02/04/18 13:45 02/04/18 14:00 02/04/18 14:15 Temperature Pulse Rate 86 86 85 Respiratory Rate 21 22 21 Blood Pressure 170/101 H 168/98 H 164/85 H Pulse Oximetry 100 100 99 02/04/18 14:30 02/04/18 14:45 02/04/18 15:00 Temperature Pulse Rate 83 84 85 Respiratory Rate 21 22 20 Blood Pressure 152/84 H 153/85 H 154/82 H Pulse Oximetry 100 99 99 02/04/18 16:00 02/04/18 16:37 02/04/18 17:00 Temperature Pulse Rate 93 H 95 H 98 H Respiratory Rate 25 H 27 H 25 H Blood Pressure 141/92 H 141/92 H 155/117 H Pulse Oximetry 100 99 100 02/04/18 17:01 02/04/18 18:00 02/04/18 19:00 Temperature Pulse Rate 94 H 92 H 93 H Respiratory Rate 20 21 28 H Blood Pressure 155/117 H 166/115 H 153/95 H Pulse Oximetry 97 98 98 02/04/18 20:00 02/04/18 21:00 02/04/18 22:00 Temperature 99.1 F Pulse Rate 96 H 102 H 98 H Respiratory Rate 23 25 H 19 Blood Pressure 160/99 H 161/104 H 166/109 H Pulse Oximetry 100 96 100 02/04/18 23:00 02/05/18 00:00 02/05/18 01:00 Temperature 98.7 F Pulse Rate 91 H 88 90 Respiratory Rate 19 17 17 Blood Pressure 160/113 H 154/103 H 180/120 H Pulse Oximetry 98 96 97 02/05/18 01:20 02/05/18 02:00 02/05/18 03:00 Temperature Pulse Rate 86 84 82 Respiratory Rate 17 2 L 0 L Blood Pressure 168/116 H 160/120 H 169/121 H Pulse Oximetry 98 98 98 02/05/18 04:00 02/05/18 04:17 02/05/18 04:30 Temperature 97.6 F Pulse Rate 92 H 91 H 97 H Respiratory Rate 16 10 L 24 Blood Pressure 187/118 H 173/115 H 174/115 H Pulse Oximetry 99 99 100 02/05/18 04:45 02/05/18 05:00 02/05/18 05:30 Temperature Pulse Rate 100 H 100 H 100 H Respiratory Rate 20 0 L 18 Blood Pressure 178/114 H 172/116 H Pulse Oximetry 96 96 02/05/18 06:00 02/05/18 07:00 02/05/18 08:00 Temperature 98.7 F Pulse Rate 95 H 106 H 100 H Respiratory Rate 27 H 24 23 Blood Pressure 177/128 H 175/118 H 179/112 H Pulse Oximetry 100 100 98 02/05/18 09:00 02/05/18 10:00 Temperature Pulse Rate 97 H 89 Respiratory Rate 15 15 Blood Pressure 160/95 H 142/87 H Pulse Oximetry 99 97 Intake & Output 02/04/18 02/05/18 02/05/18 18:59 06:59 18:59 Intake Total 1567 / 1567 240 / 240 480 / 480 Output Total 2200 / 2200 400 / 400 0 / 0 Balance -633 / -633 -160 / -160 480 / 480 Weight 69.7 kg Intake: IV 97 / 97 Cleviprex Inj 25 mg In 50 ml @ 15 / 15 1 MG/HR 2 mls/hr IV.CONT TITRATE PRN Rx#:[id number] NS Inj 1,000 ML @ 84 mls/hr IV. 82 / 82 CONT .[id number] [facility] Rx#:[id number] Oral 1470 / 1470 240 / 240 480 / 480 Output: Urine 700 / 700 400 / 400 0 / 0 Stool 0 / 0 Urine/Stool Mix 0 / 0 Hemodialysis Amount 1500 / 1500 Other: Date of Last Bowel Movement 02/05/18 02/05/18 # Bowel Movements 0 1 Result Diagrams: 02/05/18 03:59 02/05/18 03:59 Other Results: Microbiology 02/01/18 11:21 Blood - Peripheral Aerobic Blood Culture - Preliminary No growth in 3 days 02/01/18 11:21 Blood - Peripheral Anaerobic Blood Culture - Preliminary No growth in 3 days 02/01/18 11:26 Blood - Peripheral Aerobic Blood Culture - Preliminary No growth in 3 days 02/01/18 11:26 Blood - Peripheral Anaerobic Blood Culture - Preliminary No growth in 3 days 02/01/18 10:56 Nasal Wash Influenza Types A,B Antigen - Final Negative for FLU A and B antigen Infection due to influenza A or B cannot be ruled out since the antigen present in the sample may be below the detection limit of the test. Imaging: Chest X-Ray 02/01/18 08:29 CONCLUSION: Under aerated with some peribronchial thickening. Inflammatory process is suspected. Head CT 02/01/18 09:03 CONCLUSION: 1. Negative for acute process . Abdomen/Bladder Ultrasound 02/01/18 10:21 CONCLUSION: 1. No hydronephrosis. 2. Mildly increased echogenicity indicate medical renal disease. Central Venous Line 02/03/18 00:00 CONCLUSION: 1. Uncomplicated PermaCath placement as above. Objective Remarks: GENERAL: 32-year-old -[place] male currently resting in bed in no acute distress SKIN: Warm and dry. HEAD: Atraumatic. Normocephalic. EYES: Pupils equal and round. No scleral icterus. No injection or drainage. No papilledema identified ENT: No nasal bleeding or discharge. Mucous membranes pink and moist. NECK: Trachea midline. No JVD. Right IJ tunneled cuffed catheter for hemodialysis clean dry and intact CARDIOVASCULAR: RRR. S1, S2. No prescription without murmur RESPIRATORY: No accessory muscle use. Clear to auscultation. Breath sounds equal bilaterally. GASTROINTESTINAL: Abdomen soft, non-tender, nondistended. MUSCULOSKELETAL: Extremities without clubbing, cyanosis, or edema. No obvious deformities. NEUROLOGICAL: Awake and alert. No obvious cranial nerve deficits. Motor grossly within normal limits. Five out of 5 muscle strength in the arms and legs. Normal speech. PSYCHIATRIC: Appropriate mood and affect; insight and judgment normal. Assessment and Plan - Problem List (1) Elevated troponin Code(s): R74.8 - Abnormal levels of other serum enzymes Status: Acute (2) Hyponatremia Code(s): E87.1 - Hypo-osmolality and hyponatremia Status: Acute (3) Hypopotassemia Code(s): E87.6 - Hypokalemia Status: Acute (4) Elevated AST (SGOT) Code(s): R74.0 - Nonspecific elevation of levels of transaminase and lactic acid dehydrogenase [LDH] Status: Acute (5) Thrombocytopenia Code(s): D69.6 - Thrombocytopenia, unspecified Status: Acute - Assessment and Plan Plan: Neuro/Psych: Headachecephalgia Acetaminophen 650 mg p.o. every 6 hours as needed fever Hydrocodone/acetaminophen 5/51 tablet every 4 hours as needed pain 1 through 5 Morphine sulfate 2 mg IV every 2 hours as needed pain 6 through 10 Drug toxicology screen negative CT brain revealed no acute findings CV: Hypertensive emergency Elevated troponin Currently on losartan 50 mg daily, hydralazine 25 mg 3 times daily and IsoSorbide [id number] mg 3 times daily Nephrology labetalol 100 mg twice daily Currently on as needed labetalol, hydralazine Nitropaste to keep systolic blood pressure less than 180, diastolic less than 100 Clevidipine drip as indicated Serial troponins. Cycle until downtrending. Currently 0.19. Likely secondary to hypertensive crisis/strain EKG revealed sinus tachycardia with LVH. Echocardiogram concentric left ventricular hypertrophy left ventricular systolic function is normal with an estimated ejection fraction in the range of 55-60%. The left atrial size is mildly dilated. [id number] mitral valve regurgitation. There is trace tricuspid valve regurgitation. The estimated pulmonary arterial pressure is 32 mmHg. Resp: Nasal cannula to maintain saturations greater than or equal to 92% Incentive spirometry while awake As needed albuterol aerosols every 2 hours as needed dyspnea Chest x-ray revealed cardiomegaly but no significant pulmonary findings GI: Elevated AST Renal/cardiac diet Pantoprazole for GI prophylaxis Docusate sodium/senna 1 tablet twice daily for bowel regimen : Straight catheterization as needed Endo: Sliding scale insulin Accu-Cheks to maintain euglycemia aspart insulin likely can be discontinued TSH was 2.67 and cortisol was 27 Renal: Acute kidney injury -unknown baseline with proteinuria Negative urine eosinophils Avoid nephrotoxic medication Monitor urine output Accurate I's and O's Nephrology consultation appreciated with workup in process Pheochromocytoma workup per nephrology. Including metanephrines was 0.39 nmol/ L and normetanephrine'elevated 1.3 nmol/L Renin was 66 ng/mL/h, aldosterone level pending Proteinuria urine/workup elevated Renal ultrasound revealed cortical thinning indicative of medical renal disease. No hydronephrosis Status post single vessel catheter placement 02/03 right tunneled IJ. Heme: normocytic anemia Monitor CBC daily. Follow trends. No indication for transfusion of blood products at this time ID: Blood cultures x2, influenza a and B negative Monitor for signs and symptomatology of infection FEN: Replace electrolytes as clinically indicated Low in urinary potassium MSK: Out of bed/PT evaluate and treat Access -Utilize peripheral IV. Central line if indicated Prophylaxis -GI -pantoprazole -DVT-SCD/holding pharmacological prophylaxis with high blood pressure. Resume 02/04 Level 2 follow-up. Stable from critical care medicine standpoint. Assign to hospitalist in a.m. 02/06
--- NOTE | 2018-02-05 12:31 | P.PNNP ---
Subjective Interval history: Patient is alert, headache is better, no complaint. Physical Exam Vital signs: Vital Signs 02/04/18 12:31 02/04/18 12:45 02/04/18 13:00 Temperature Pulse Rate 92 H 88 90 Respiratory Rate 22 24 23 Blood Pressure 185/108 H 172/98 H 180/106 H Pulse Oximetry 100 100 100 02/04/18 13:15 02/04/18 13:30 02/04/18 13:45 Temperature Pulse Rate 90 87 86 Respiratory Rate 27 H 24 21 Blood Pressure 163/92 H 176/104 H 170/101 H Pulse Oximetry 100 100 100 02/04/18 14:00 02/04/18 14:15 02/04/18 14:30 Temperature Pulse Rate 86 85 83 Respiratory Rate 22 21 21 Blood Pressure 168/98 H 164/85 H 152/84 H Pulse Oximetry 100 99 100 02/04/18 14:45 02/04/18 15:00 02/04/18 16:00 Temperature Pulse Rate 84 85 93 H Respiratory Rate 22 20 25 H Blood Pressure 153/85 H 154/82 H 141/92 H Pulse Oximetry 99 99 100 02/04/18 16:37 02/04/18 17:00 02/04/18 17:01 Temperature Pulse Rate 95 H 98 H 94 H Respiratory Rate 27 H 25 H 20 Blood Pressure 141/92 H 155/117 H 155/117 H Pulse Oximetry 99 100 97 02/04/18 18:00 02/04/18 19:00 02/04/18 20:00 Temperature 99.1 F Pulse Rate 92 H 93 H 96 H Respiratory Rate 21 28 H 23 Blood Pressure 166/115 H 153/95 H 160/99 H Pulse Oximetry 98 98 100 02/04/18 21:00 02/04/18 22:00 02/04/18 23:00 Temperature Pulse Rate 102 H 98 H 91 H Respiratory Rate 25 H 19 19 Blood Pressure 161/104 H 166/109 H 160/113 H Pulse Oximetry 96 100 98 02/05/18 00:00 02/05/18 01:00 02/05/18 01:20 Temperature 98.7 F Pulse Rate 88 90 86 Respiratory Rate 17 17 17 Blood Pressure 154/103 H 180/120 H 168/116 H Pulse Oximetry 96 97 98 02/05/18 02:00 02/05/18 03:00 02/05/18 04:00 Temperature 97.6 F Pulse Rate 84 82 92 H Respiratory Rate 2 L 0 L 16 Blood Pressure 160/120 H 169/121 H 187/118 H Pulse Oximetry 98 98 99 02/05/18 04:17 02/05/18 04:30 02/05/18 04:45 Temperature Pulse Rate 91 H 97 H 100 H Respiratory Rate 10 L 24 20 Blood Pressure 173/115 H 174/115 H Pulse Oximetry 99 100 02/05/18 05:00 02/05/18 05:30 02/05/18 06:00 Temperature Pulse Rate 100 H 100 H 95 H Respiratory Rate 0 L 18 27 H Blood Pressure 178/114 H 172/116 H 177/128 H Pulse Oximetry 96 96 100 02/05/18 07:00 02/05/18 08:00 02/05/18 09:00 Temperature 98.7 F Pulse Rate 106 H 100 H 97 H Respiratory Rate 24 23 15 Blood Pressure 175/118 H 179/112 H 160/95 H Pulse Oximetry 100 98 99 02/05/18 10:00 Temperature Pulse Rate 89 Respiratory Rate 15 Blood Pressure 142/87 H Pulse Oximetry 97 Intake & Output 02/04/18 02/05/18 02/05/18 18:59 06:59 18:59 Intake Total 1567 / 1567 240 / 240 480 / 480 Output Total 2200 / 2200 400 / 400 0 / 0 Balance -633 / -633 -160 / -160 480 / 480 Weight 69.7 kg Intake: IV 97 / 97 Cleviprex Inj 25 mg In 50 ml @ 15 / 15 1 MG/HR 2 mls/hr IV.CONT TITRATE PRN Rx#:[id number] NS Inj 1,000 ML @ 84 mls/hr IV. 82 / 82 CONT .[id number] [facility] Rx#:[id number] Oral 1470 / 1470 240 / 240 480 / 480 Output: Urine 700 / 700 400 / 400 0 / 0 Stool 0 / 0 Urine/Stool Mix 0 / 0 Hemodialysis Amount 1500 / 1500 Other: Date of Last Bowel Movement 02/05/18 02/05/18 # Bowel Movements 0 1 - Constitutional no acute distress - Routine HEENT Exam Head: Present: normocephalic Eye: Present: PERRL ENT: Present: mucous membranes moist - Routine Neck Exam Present: supple, JVD - Routine Respiratory Exam Present: CTA bilaterally, rhonchi - Routine Cardiovascular Exam Present: RRR, S1, S2 - Routine Abdominal Exam Present: soft, normoactive bowel sounds Assessment and Plan - Assessment (1) Acute renal failure Code(s): N17.9 - Acute kidney failure, unspecified Status: Acute Qualifiers: Acute renal failure type: unspecified Qualified Code(s): N17.9 - Acute kidney failure, unspecified Plan: Patient appears to have underlying CKD. We have no baseline lab work for the patient. Hypertensive crisis could be due to renal failure or acute renal failure could be due to malignant hypertension. Creatinine remain elevated, HD done yesterday, tolerated well. Started on Labetalol, follow the BP. Avoid nephrotoxic agents. Monitor fluid and electrolytes. Possibly has End stage renal disease. (2) Hypopotassemia Code(s): E87.6 - Hypokalemia Status: Acute Plan: Patient given Potassium supplement yesterday and K is 2.9 today. Potassium should improve with dialysis. Monitor for improvement. (3) Hypertensive emergency Code(s): I16.1 - Hypertensive emergency Status: Acute Plan: Patient given IVP Metoprolol in the ED. Currently on Cleviprex drip. BP improved but still hypertensive. Also on Hydralazine and Labetalol. Monitor BP.
[2018-02-05 13:17] LABS: Complement C3 114 mg/dL (90-180)
[2018-02-06] MEDS: hydrALAZINE HCl Inj 20 MG/ML Vial IV.PUSH PRN ×3 (02:01→03:38)
[2018-02-06] MEDS: Labetalol HCl Inj 100 MG/20 ML Vial IV.PUSH PRN ×2 (03:10→05:06)
[2018-02-06] MEDS: Chlorhexidine Gluconate 2% 1 Pack (2 Cloths) TOPICAL SCH (05:07)
[2018-02-06 06:06] LABS: Baso # (Auto) 0.1 th/mm3 (0.0-0.2); Baso % (Auto) 1.1 % (0.0-2.0); Eos # (Auto) 0.3 th/mm3 (0.0-0.4); Eos % (Auto) 3.2 % (0.0-4.0); Hematocrit 30.6 % (39.0-51.0); Hemoglobin 10.6 gm/dL (13.0-17.0); Lymph % (Auto) 11.4 % (9.0-44.0); Mean Corpuscular HGB Conc 34.7 % (32.0-36.0); Mean Corpuscular Hemoglobin 30.6 pg (27.0-34.0); Mean Corpuscular Volume 88.3 fL (80.0-100.0); Mean Platelet Volume 9.9 fL (7.0-11.0); Mono # (Auto) 0.5 th/mm3 (0.0-0.9); Mono % (Auto) 5.9 % (0.0-8.0); Neut # (Auto) 6.9 th/mm3 (1.8-7.7); Neut % (Auto) 78.4 % (16.0-70.0); Platelet Count 180 th/mm3 (150-450); Red Blood Count 3.47 mil/mm3 (4.50-5.90); Red Cell Distribution Width 14.7 % (11.6-17.2); White Blood Count 8.8 th/mm3 (4.0-11.0)
[2018-02-06 06:33] LABS: Calcium 8.6 mg/dL (8.5-10.1); Magnesium 2.2 mg/dL (1.5-2.5); Phosphorus 5.6 mg/dL (2.5-4.9); Potassium 3.5 meq/L (3.5-5.1)
[2018-02-06] MEDS: Labetalol 100 MG Tablet PO SCH ×2 (08:12→20:42)
[2018-02-06] MEDS: Calcium Acetate 667 MG Capsule PO SCH ×3 (08:12→17:00)
[2018-02-06] MEDS: hydrALAZINE 25 MG Tablet PO SCH ×3 (08:12→17:00)
[2018-02-06] MEDS: Heparin - SQ 10,000 UNITS/ML Vial SQ SCH ×2 (08:13→20:42)
[2018-02-06] MEDS: Senna/Docusate Sodium 8.6/50 MG Tablet PO SCH ×2 (08:13→20:43)
[2018-02-06] MEDS: Acetaminophen 325 MG Tablet PO PRN ×2 (08:45→13:36)
--- NOTE | 2018-02-06 10:31 | P.PNNP ---
Subjective Interval history: Patient was seen, no distress. Patient last dialyzed 02/04, 1.5 L removed. Possible kidney biopsy later this week. Labetalol increased and Clonidine added. Consult placed to Dr. Lombardo for AVF. <RobiGelacio - Last Filed: 02/06/18 11:14> Physical Exam Vital signs: Vital Signs 02/05/18 10:30 02/05/18 11:00 02/05/18 11:30 Temperature Pulse Rate 92 H 91 H 93 H Respiratory Rate 26 H 15 8 L Blood Pressure 145/88 H 154/97 H 160/97 H Pulse Oximetry 100 99 100 02/05/18 12:00 02/05/18 12:30 02/05/18 13:00 Temperature Pulse Rate 90 87 91 H Respiratory Rate 1 L 12 15 Blood Pressure 164/107 H 171/111 H 158/98 H Pulse Oximetry 100 99 100 02/05/18 13:30 02/05/18 14:00 02/05/18 14:30 Temperature Pulse Rate 91 H 94 H 95 H Respiratory Rate 7 L 20 16 Blood Pressure 149/86 H 158/91 H 157/96 H Pulse Oximetry 100 100 98 02/05/18 15:00 02/05/18 15:30 02/05/18 16:00 Temperature Pulse Rate 92 H 94 H 92 H Respiratory Rate 18 21 22 Blood Pressure 163/103 H 165/100 H 171/114 H Pulse Oximetry 99 99 97 02/05/18 16:30 02/05/18 17:00 02/05/18 17:30 Temperature Pulse Rate 90 97 H 88 Respiratory Rate 21 25 H 13 Blood Pressure 174/110 H 200/145 H 179/122 H Pulse Oximetry 98 98 99 02/05/18 18:00 02/05/18 18:30 02/05/18 19:00 Temperature Pulse Rate 88 91 H 94 H Respiratory Rate 21 17 23 Blood Pressure 178/119 H 163/100 H 165/93 H Pulse Oximetry 100 97 99 02/05/18 19:30 02/05/18 20:00 02/05/18 20:30 Temperature 98.7 F Pulse Rate 94 H 99 H 89 Respiratory Rate 20 14 14 Blood Pressure 172/103 H 173/111 H 157/99 H Pulse Oximetry 97 100 100 02/05/18 21:06 02/05/18 21:30 02/05/18 22:00 Temperature Pulse Rate 92 H 93 H 94 H Respiratory Rate 25 H 21 22 Blood Pressure 169/106 H 173/97 H Pulse Oximetry 100 96 97 02/05/18 22:30 02/05/18 23:00 02/05/18 23:30 Temperature Pulse Rate 92 H 94 H 92 H Respiratory Rate 24 16 Blood Pressure 173/100 H 170/99 H 171/97 H Pulse Oximetry 99 98 97 02/06/18 00:00 02/06/18 00:30 02/06/18 01:00 Temperature 98.7 F Pulse Rate 86 87 89 Respiratory Rate 19 16 23 Blood Pressure 172/108 H 160/106 H 179/110 H Pulse Oximetry 97 97 99 02/06/18 01:30 02/06/18 01:59 02/06/18 02:00 Temperature Pulse Rate 89 87 88 Respiratory Rate 13 17 17 Blood Pressure 177/127 H 184/122 H 180/122 H Pulse Oximetry 98 99 98 02/06/18 02:31 02/06/18 03:00 02/06/18 03:30 Temperature Pulse Rate 101 H 98 H 94 H Respiratory Rate 26 H 18 2 L Blood Pressure 188/111 H 179/122 H 173/120 H Pulse Oximetry 98 98 97 02/06/18 03:46 02/06/18 04:00 02/06/18 04:30 Temperature 98.7 F Pulse Rate 96 H 97 H 99 H Respiratory Rate 18 18 20 Blood Pressure 169/102 H 173/116 H Pulse Oximetry 99 100 02/06/18 05:00 02/06/18 05:30 02/06/18 06:00 Temperature Pulse Rate 98 H 96 H 98 H Respiratory Rate 32 H 22 18 Blood Pressure 160/109 H 149/102 H 158/102 H Pulse Oximetry 99 98 98 02/06/18 06:30 02/06/18 07:00 02/06/18 07:30 Temperature Pulse Rate 101 H 92 H 92 H Respiratory Rate 17 19 15 Blood Pressure 165/106 H 164/104 H 158/97 H Pulse Oximetry 97 100 100 02/06/18 08:00 02/06/18 08:53 Temperature 98.4 F Pulse Rate 91 H Respiratory Rate 16 Blood Pressure 159/100 H Pulse Oximetry 99 96 Intake & Output 02/05/18 02/06/18 02/06/18 18:59 06:59 18:59 Intake Total 960 / 960 480 / 480 100 / 100 Output Total 500 / 500 500 / 500 Balance 460 / 460 -20 / -20 100 / 100 Weight 70.6 kg Intake: Oral 960 / 960 480 / 480 100 / 100 Output: Urine 500 / 500 500 / 500 Other: # Voids 1 Date of Last Bowel Movement 02/05/18 02/05/18 02/05/18 # Bowel Movements 0 Narrative: GENERAL: Currently resting in bed in no acute distress SKIN: Warm and dry. HEAD: Atraumatic. Normocephalic. EYES: Pupils equal and round. No scleral icterus. No injection or drainage. No papilledema identified ENT: No nasal bleeding or discharge. Mucous membranes pink and moist. NECK: Trachea midline. No JVD. Right IJ tunneled cuffed catheter for hemodialysis. CARDIOVASCULAR: RRR. S1, S2. RESPIRATORY: No accessory muscle use. Clear to auscultation. Breath sounds equal bilaterally. GASTROINTESTINAL: Abdomen soft, non-tender, nondistended. MUSCULOSKELETAL: Extremities without clubbing, cyanosis, or edema. NEUROLOGICAL: Awake and alert. PSYCHIATRIC: Appropriate mood and affect. <Gelacio Rosenbaum - Last Filed: 02/06/18 11:14> Vital signs: Vital Signs 02/06/18 08:53 02/06/18 09:00 02/06/18 09:24 Temperature Pulse Rate 85 84 Respiratory Rate 30 H 20 Blood Pressure 175/117 H 134/91 H Pulse Oximetry 96 100 100 02/06/18 09:30 02/06/18 10:00 02/06/18 10:30 Temperature Pulse Rate 89 84 84 Respiratory Rate 18 27 H Blood Pressure 141/93 H 133/82 136/83 Pulse Oximetry 100 97 100 02/06/18 11:00 02/06/18 11:30 02/06/18 12:00 Temperature 98.6 F Pulse Rate 84 78 77 Respiratory Rate Blood Pressure 145/95 H 145/89 H 133/83 Pulse Oximetry 99 100 100 02/06/18 12:31 02/06/18 13:00 02/06/18 13:30 Temperature Pulse Rate 82 85 80 Respiratory Rate Blood Pressure 150/97 H 140/99 H 126/72 Pulse Oximetry 88 L 97 02/06/18 14:00 02/06/18 14:30 02/06/18 15:00 Temperature 98.6 F Pulse Rate 82 83 81 Respiratory Rate 55 H Blood Pressure 123/71 128/76 133/79 Pulse Oximetry 100 100 97 02/06/18 16:00 02/06/18 16:14 02/06/18 19:00 Temperature Pulse Rate 78 81 90 Respiratory Rate Blood Pressure 159/100 H Pulse Oximetry 100 02/06/18 20:00 02/06/18 20:33 02/06/18 20:36 Temperature 98.0 F Pulse Rate 86 87 Respiratory Rate 16 Blood Pressure 139/85 Pulse Oximetry 98 98 02/06/18 21:00 02/06/18 22:00 02/06/18 23:00 Temperature Pulse Rate 92 H 86 85 Respiratory Rate Blood Pressure Pulse Oximetry 02/07/18 00:00 02/07/18 00:42 02/07/18 01:00 Temperature 98.5 F Pulse Rate 88 85 85 Respiratory Rate 16 Blood Pressure 158/102 H 154/96 H Pulse Oximetry 97 02/07/18 02:00 02/07/18 03:00 02/07/18 03:30 Temperature Pulse Rate 75 77 80 Respiratory Rate 16 Blood Pressure 127/83 Pulse Oximetry 99 02/07/18 04:00 02/07/18 05:00 02/07/18 06:00 Temperature Pulse Rate 77 79 84 Respiratory Rate Blood Pressure Pulse Oximetry Intake & Output 02/06/18 02/07/18 02/07/18 18:59 06:59 18:59 Intake Total 820 / 820 240 / 240 Output Total 900 / 900 Balance -80 / -80 240 / 240 Weight 65.5 kg Intake: Oral 820 / 820 240 / 240 Output: Urine 900 / 900 Other: # Voids 1 Date of Last Bowel Movement 02/06/18 # Bowel Movements 1 <Deejay Whitten - Last Filed: 02/07/18 08:32> Assessment and Plan - Assessment (1) Acute renal failure Code(s): N17.9 - Acute kidney failure, unspecified Status: Acute Qualifiers: Acute renal failure type: unspecified Qualified Code(s): N17.9 - Acute kidney failure, unspecified Plan: Patient appears to have underlying CKD. We have no baseline lab work for the patient. Hypertensive crisis could be due to renal failure or acute renal failure could be due to malignant hypertension. Patient last dialyzed 02/04, 1.5 L removed. Possible kidney biopsy later this week. Consult placed to Dr. Lombardo for AVF. Labetalol increased and Clonidine added. Avoid nephrotoxic agents. Monitor fluid and electrolytes. Possibly has End stage renal disease. (2) Hypopotassemia Code(s): E87.6 - Hypokalemia Status: Acute Plan: Potassium improved with dialysis. Monitor for improvement. (3) Hypertensive emergency Code(s): I16.1 - Hypertensive emergency Status: Acute Plan: Patient given IVP Metoprolol in the ED. Was on Cleviprex drip but has been discontinued. BP improved but still hypertensive. Also on Hydralazine and Labetalol. Labetalol increased and Clonidine added today. Monitor BP. <Gelacio Rosenbaum - Last Filed: 02/06/18 11:14> - Assessment (1) Acute renal failure Code(s): N17.9 - Acute kidney failure, unspecified Status: Acute Qualifiers: Acute renal failure type: unspecified Qualified Code(s): N17.9 - Acute kidney failure, unspecified (2) Hypopotassemia Code(s): E87.6 - Hypokalemia Status: Acute (3) Hypertensive emergency Code(s): I16.1 - Hypertensive emergency Status: Acute - Attending Attestation patient was seen and examined. Both Renin and Aldosterone are high, not reflective of primary hyperaldosteronism. Malignant hypertension? Discussed renal biopsy. I have added Clonidine, and increased labetalol. If BP improves, renal biopsy. Consult vascular surgery for AVF. Needs outpatient dialysis arrangements. <Deejay Whitten - Last Filed: 02/07/18 08:32>
--- NOTE | 2018-02-06 12:41 | P.CONVS ---
History of Present Illness Service: Cardiovascular Consult date: 02/06/18 Reason for Consult: AVF Eval Primary Care Provider: No Primary Care Physician Chief Complaint: Malaise History of Present Illness: 32/M arrived to the ED c/o generalized malaise, headaches, and chest discomfort for a duration of 3W Pt denied any previous past medical or surgical history Pt recently Dx w/ acute kidney failure currently on HD via R chest PermCath Pt evaluated for an Arteriovenous Fistula Pt is RIGHT handed Review of Systems All other systems reviewed negative except as stated in HPI PMFSH - History History Provided By: Patient - Medical / Surgical Hx Neg / Unobtainable Medical Problems Denied: Yes Surgical History: No Previous Surgery - Medical History Medical History: Medical History (Last Reviewed 02/06/18 @ 12:34 by Laisha Cornejo) No significant past medical history - Surgical History Surgical History: Surgical History (Last Reviewed 02/06/18 @ 12:34 by Laisha Cornejo) No significant past surgical history (Acute) - Family History Family History: Family History (Last Reviewed 02/06/18 @ 12:34 by Laisha Cornejo) Grandparent Hypertension - Social History I have reviewed the patient's Social History: Yes - Tobacco History Second Hand Smoke Exposure: No Tobacco Use In Past 30 Days: No Smoking Status: Never smoker - Alcohol History How Often Do You Have a Drink Containing Alcohol: Monthly or less - Substance Use History Substance History: No History of Abuse - Travel History History of Recent Travel: No Recent Travel in the [place] Within the Last 8 Weeks: No Recent Travel Out of the Country Within the Last 8 Weeks: No - Immunization History Tetanus Immunization: >5 Years Tetanus Immunization Year if Known: 2012 Hx Influenza Vaccine This Season: No Medications and Allergies Allergies Allergy/AdvReac Type Severity Reaction Status Date / Time No Known Allergies Allergy Mild none Uncoded 02/01/18 08:18 Home Medications Medication Instructions Recorded Confirmed Type No Known Home Medications 02/01/18 02/01/18 History Active Medications: Active Medications Acetaminophen (Tylenol) 650 mg PO Q6H PRN PRN Reason: Fever/pain 1-5 Last Admin: 02/06/18 08:45 Dose: 650 mg Acetaminophen (Tylenol) 650 mg PO UNSCH PRN PRN Reason: SEE LABEL COMMENTS Hydrocodone Bitart/Acetaminophen ([place] 5/325) 1 tab PO Q4H PRN PRN Reason: PAIN SCALE 6-10 OR SEVERE SOB Al Hydroxide/Mg Hydroxide (Milk Of [place]) 30 ml PO Q12H PRN PRN Reason: Mild Constipation Albuterol (Albuterol Neb (Prn)) 2.5 mg NEB Q2HR NEB PRN PRN Reason: SHORTNESS OF BREATH/WHEEZING Last Admin: 02/06/18 03:45 Dose: 2.5 mg Bisacodyl (Dulcolax Supp) 10 mg RECTAL DAILY PRN PRN Reason: SEVERE CONSITIPATION Calcium Acetate (Phoslo) 667 mg PO TID [facility] Last Admin: 02/06/18 08:12 Dose: 667 mg Chlorhexidine Gluconate (Chlorhexidine 2% Cloth) 3 pack TOPICAL DAILY@0400 PRN PRN Reason: Extra cloth needed Stop: 02/07/18 03:59 Chlorhexidine Gluconate (Chlorhexidine 2% Cloth) 3 pack TOPICAL DAILY@0400 TANJA Stop: 02/07/18 03:59 Last Admin: 02/06/18 05:07 Dose: 3 pack Clonidine HCl (Catapres) 0.1 mg PO UNSCH PRN PRN Reason: SEE LABEL COMMENTS Clonidine HCl (Catapres) 0.1 mg PO Q12HR [facility] Last Admin: 02/06/18 09:25 Dose: 0.1 mg Diphenhydramine HCl (Benadryl) 25 mg PO UNSCH PRN PRN Reason: SEE LABEL COMMENTS Epoetin Colin (Epogen Inj) 10,000 unit IV.PUSH UNSCH PRN PRN Reason: SEE LABEL COMMENTS Last Admin: 02/04/18 12:46 Dose: 10,000 unit Gelatin (Gelfoam 12 Mm/7 Mm Topical) 1 foam TOPICAL PRN PRN PRN Reason: help stop bleeding from site Gentamicin Sulfate (Gentamicin Inj) 20 mg OTHER WITH DIALYSIS PRN PRN Reason: Dwell Gentamycin Lock Last Admin: 02/04/18 12:46 Dose: 20 mg Heparin Sodium (Porcine) (Heparin Inj) 1,000 units OTHER WITH DIALYSIS PRN PRN Reason: Dwell Heparin to Fill Catheter Heparin Sodium (Porcine) (Heparin Inj) 8,000 units OTHER WITH DIALYSIS PRN PRN Reason: for machine prime Heparin Sodium (Porcine) (Heparin Inj) 5,000 units SQ Q12HR [facility] Last Admin: 02/06/18 08:13 Dose: 5,000 units Hydralazine HCl (Apresoline Inj) 10 mg IV.PUSH Q1H PRN PRN Reason: SYS BP GREATER THAN 180 MMHG Last Admin: 02/06/18 03:38 Dose: 10 mg Hydralazine HCl (Apresoline) 25 mg PO TID [facility] Last Admin: 02/06/18 08:12 Dose: 25 mg Clevidipine (Cleviprex Inj) 25 mg in 50 mls @ 2 mls/hr IV.CONT TITRATE PRN; Protocol PRN Reason: Per protocol Last Titration: 02/04/18 18:03 Dose: Infused Albumin Human (Flexbumin 25% Inj) 100 mls @ 60 mls/hr IV.SIG WITH DIALYSIS PRN PRN Reason: hypotension / volume replace Sodium Chloride (Ns Inj) 1,000 mls @ 0 mls/hr OTHER .Q0M PRN PRN Reason: for prime and rinse back Sodium Chloride (Ns Inj) 1,000 mls @ 200 mls/hr OTHER .Q5H PRN PRN Reason: for dialyzer flush PRN Sodium Chloride (Ns Inj) 1,000 mls @ 0 mls/hr IV.CONT .Q0M PRN PRN Reason: hypotension / volume replace Isosorbide Dinitrate (Isordil) 10 mg PO TIDAC [facility] Last Admin: 02/06/18 08:11 Dose: 10 mg Labetalol HCl (Trandate Inj) 10 mg IV.PUSH Q1H PRN PRN Reason: SBP>180, DBP>100, HR>65 Last Admin: 02/06/18 05:06 Dose: 10 mg Labetalol HCl (Trandate) 300 mg PO BID [facility] Lactulose (Lactulose Liq) 30 ml PO DAILY PRN PRN Reason: SEVERE CONSITIPATION Losartan Potassium (Cozaar) 50 mg PO DAILY [facility] Last Admin: 02/06/18 08:12 Dose: 50 mg Mannitol (Mannitol Inj) 12.5 gm IV.PUSH UNSCH PRN PRN Reason: hypotension / volume replace Morphine Sulfate (Morphine Inj) 2 mg IV.PUSH Q2H PRN PRN Reason: BREAKTHROUGH PAIN Nitroglycerin (Nitro-Bid 2% Oint) 1 inch TOPICAL Q6HR PRN PRN Reason: SYS BP GREATER THAN 180 MMHG Nitroglycerin (Nitrostat Sl) 0.4 mg SL Q5M PRN PRN Reason: CHEST PAIN Ondansetron HCl (Zofran Inj) 4 mg IV.PUSH Q6H PRN PRN Reason: NAUSEA OR VOMITING Ondansetron HCl (Zofran Inj) 4 mg IV.PUSH UNSCH PRN PRN Reason: NAUSEA OR VOMITING Pantoprazole Sodium (Protonix) 40 mg PO DAILY [facility] Last Admin: 02/06/18 08:13 Dose: 40 mg Senna/Docusate Sodium (Risa-Colace) 1 tab PO BID [facility] Last Admin: 02/06/18 08:13 Dose: Not Given Sennosides (Senokot) 17.2 mg PO Q12H PRN PRN Reason: Moderate Constipation Sodium Chloride (Ns Flush) 2 ml IV.FLUSH PRN PRN PRN Reason: FLUSH AFTER USING IV ACCESS Sodium Chloride (Ns Flush) 2 ml IV.FLUSH BID [facility] Last Admin: 02/06/18 08:13 Dose: 2 ml Sodium Chloride (Ns Flush) 5 ml IV.FLUSH PRN PRN PRN Reason: flush each lumen during HD Physical Exam Vital Signs / I&O: Vital Signs 02/05/18 12:30 02/05/18 13:00 02/05/18 13:30 Temperature Pulse Rate 87 91 H 91 H Respiratory Rate 12 15 7 L Blood Pressure 171/111 H 158/98 H 149/86 H Pulse Oximetry 99 100 100 02/05/18 14:00 02/05/18 14:30 02/05/18 15:00 Temperature Pulse Rate 94 H 95 H 92 H Respiratory Rate 20 16 18 Blood Pressure 158/91 H 157/96 H 163/103 H Pulse Oximetry 100 98 99 02/05/18 15:30 02/05/18 16:00 02/05/18 16:30 Temperature Pulse Rate 94 H 92 H 90 Respiratory Rate 21 22 21 Blood Pressure 165/100 H 171/114 H 174/110 H Pulse Oximetry 99 97 98 02/05/18 17:00 02/05/18 17:30 02/05/18 18:00 Temperature Pulse Rate 97 H 88 88 Respiratory Rate 25 H 13 21 Blood Pressure 200/145 H 179/122 H 178/119 H Pulse Oximetry 98 99 100 02/05/18 18:30 02/05/18 19:00 02/05/18 19:30 Temperature Pulse Rate 91 H 94 H 94 H Respiratory Rate 17 23 20 Blood Pressure 163/100 H 165/93 H 172/103 H Pulse Oximetry 97 99 97 02/05/18 20:00 02/05/18 20:30 02/05/18 21:06 Temperature 98.7 F Pulse Rate 99 H 89 92 H Respiratory Rate 14 14 25 H Blood Pressure 173/111 H 157/99 H Pulse Oximetry 100 100 100 02/05/18 21:30 02/05/18 22:00 02/05/18 22:30 Temperature Pulse Rate 93 H 94 H 92 H Respiratory Rate 21 22 24 Blood Pressure 169/106 H 173/97 H 173/100 H Pulse Oximetry 96 97 99 02/05/18 23:00 02/05/18 23:30 02/06/18 00:00 Temperature 98.7 F Pulse Rate 94 H 92 H 86 Respiratory Rate 16 19 Blood Pressure 170/99 H 171/97 H 172/108 H Pulse Oximetry 98 97 97 02/06/18 00:30 02/06/18 01:00 02/06/18 01:30 Temperature Pulse Rate 87 89 89 Respiratory Rate 16 23 13 Blood Pressure 160/106 H 179/110 H 177/127 H Pulse Oximetry 97 99 98 02/06/18 01:59 02/06/18 02:00 02/06/18 02:31 Temperature Pulse Rate 87 88 101 H Respiratory Rate 17 17 26 H Blood Pressure 184/122 H 180/122 H 188/111 H Pulse Oximetry 99 98 98 02/06/18 03:00 02/06/18 03:30 02/06/18 03:46 Temperature Pulse Rate 98 H 94 H 96 H Respiratory Rate 18 2 L 18 Blood Pressure 179/122 H 173/120 H Pulse Oximetry 98 97 02/06/18 04:00 02/06/18 04:30 02/06/18 05:00 Temperature 98.7 F Pulse Rate 97 H 99 H 98 H Respiratory Rate 18 20 32 H Blood Pressure 169/102 H 173/116 H 160/109 H Pulse Oximetry 99 100 99 02/06/18 05:30 02/06/18 06:00 02/06/18 06:30 Temperature Pulse Rate 96 H 98 H 101 H Respiratory Rate 22 18 17 Blood Pressure 149/102 H 158/102 H 165/106 H Pulse Oximetry 98 98 97 02/06/18 07:00 02/06/18 07:30 02/06/18 08:00 Temperature 98.4 F Pulse Rate 92 H 92 H 91 H Respiratory Rate 19 15 16 Blood Pressure 164/104 H 158/97 H 159/100 H Pulse Oximetry 100 100 99 02/06/18 08:30 02/06/18 08:53 02/06/18 09:00 Temperature Pulse Rate 89 85 Respiratory Rate 15 30 H Blood Pressure 169/114 H 175/117 H Pulse Oximetry 98 96 100 02/06/18 09:24 02/06/18 09:30 02/06/18 10:00 Temperature Pulse Rate 84 89 84 Respiratory Rate 20 18 27 H Blood Pressure 134/91 H 141/93 H 133/82 Pulse Oximetry 100 100 97 02/06/18 10:30 02/06/18 11:00 02/06/18 11:30 Temperature Pulse Rate 84 84 78 Respiratory Rate Blood Pressure 136/83 145/95 H 145/89 H Pulse Oximetry 100 99 100 02/06/18 12:00 Temperature 98.6 F Pulse Rate 77 Respiratory Rate Blood Pressure 133/83 Pulse Oximetry 100 Intake & Output 02/05/18 02/06/18 02/06/18 18:59 06:59 18:59 Intake Total 960 / 960 480 / 480 340 / 340 Output Total 500 / 500 500 / 500 Balance 460 / 460 -20 / -20 340 / 340 Weight 70.6 kg Intake: Oral 960 / 960 480 / 480 340 / 340 Output: Urine 500 / 500 500 / 500 Other: # Voids 1 Date of Last Bowel Movement 02/05/18 02/05/18 02/05/18 # Bowel Movements 0 Neuro: Speech clear CN 2-12 intact No neurological deficits noted Neck: No JVD distention Heart: RRR w/o M/G/R Lungs: Even and CTA Abdomen: Abdomen S/NT Vascular: R/L UE w/ 2+ radial pulse Extremities: UE 5/5 LE 5/5 Laboratory Results - last 24 hr 02/01/18 02/05/18 02/06/18 11:21 12:11 05:37 WBC 8.8 RBC 3.47 L Hgb 10.6 L Hct 30.6 L MCV 88.3 MCH 30.6 MCHC 34.7 RDW 14.7 Plt Count 180 MPV 9.9 Neut % (Auto) 78.4 H Lymph % (Auto) 11.4 [place] % (Auto) 5.9 Eos % (Auto) 3.2 Baso % (Auto) 1.1 Neut # (Auto) 6.9 Lymph # (Auto) 1.0 [place] # (Auto) 0.5 Eos # (Auto) 0.3 Baso # (Auto) 0.1 WBC Differential . Differential Comment Auto diff final Sodium Potassium Chloride Carbon Dioxide Anion Gap BUN Creatinine Estimated GFR Random Glucose Calcium Phosphorus Magnesium Aldosterone 40.0 H Complement C3 114 Complement C4 33 02/06/18 05:37 WBC RBC Hgb Hct MCV MCH MCHC RDW Plt Count MPV Neut % (Auto) Lymph % (Auto) [place] % (Auto) Eos % (Auto) Baso % (Auto) Neut # (Auto) Lymph # (Auto) [place] # (Auto) Eos # (Auto) Baso # (Auto) WBC Differential Differential Comment Sodium 134 L Potassium 3.5 Chloride 97 L Carbon Dioxide 27.0 Anion Gap 10 BUN 55 H Creatinine 7.15 H Estimated GFR 11 L Random Glucose 103 Calcium 8.6 Phosphorus 5.6 H D Magnesium 2.2 Aldosterone Complement C3 Complement C4 Microbiology 02/01/18 11:21 Aerobic Blood Culture - Final Blood - Peripheral No growth in 5 days Anaerobic Blood Culture - Final No growth in 5 days 02/01/18 11:26 Aerobic Blood Culture - Final Blood - Peripheral No growth in 5 days Anaerobic Blood Culture - Final No growth in 5 days Assessment and Plan - Plan 32/M newly Dx HTN and acute renal failure on HD Consulted for an arteriovenous fistula creation Pt is Right handed Plan Discussed and reviewed AVF creation process w/ pt Questions answered Vein mapping ordered- Once resulted recommendations to follow Left arm precautions- No B/P readings or lab draws Laisha Cornejo NP [facility] [phone] - Attending Attestation I agree with the above note. I repeated the bui portions of the H&P. Mr. Shankar has ESRD and is now on HD. I explained the need for an AVF and the benefits of that over a catheter. He is RIGHT handed. Will get AVF eval and then offer AVF, but at present he is somewhat reluctant. Will follow. Rafael Lombardo MD FACS FSV[facility] [phone]
--- NOTE | 2018-02-06 15:57 | P.PN ---
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 Patient self denies any headaches nausea vomiting this morning. Says he feels fine as if he could be at his home. Physical Exam Vital signs: Vital Signs 02/05/18 16:00 02/05/18 16:30 02/05/18 17:00 Temperature Pulse Rate 92 H 90 97 H Respiratory Rate 22 21 25 H Blood Pressure 171/114 H 174/110 H 200/145 H Pulse Oximetry 97 98 98 02/05/18 17:30 02/05/18 18:00 02/05/18 18:30 Temperature Pulse Rate 88 88 91 H Respiratory Rate 13 21 17 Blood Pressure 179/122 H 178/119 H 163/100 H Pulse Oximetry 99 100 97 02/05/18 19:00 02/05/18 19:30 02/05/18 20:00 Temperature 98.7 F Pulse Rate 94 H 94 H 99 H Respiratory Rate 23 20 14 Blood Pressure 165/93 H 172/103 H 173/111 H Pulse Oximetry 99 97 100 02/05/18 20:30 02/05/18 21:06 02/05/18 21:30 Temperature Pulse Rate 89 92 H 93 H Respiratory Rate 14 25 H 21 Blood Pressure 157/99 H 169/106 H Pulse Oximetry 100 100 96 02/05/18 22:00 02/05/18 22:30 02/05/18 23:00 Temperature Pulse Rate 94 H 92 H 94 H Respiratory Rate 22 24 Blood Pressure 173/97 H 173/100 H 170/99 H Pulse Oximetry 97 99 98 02/05/18 23:30 02/06/18 00:00 02/06/18 00:30 Temperature 98.7 F Pulse Rate 92 H 86 87 Respiratory Rate 16 19 16 Blood Pressure 171/97 H 172/108 H 160/106 H Pulse Oximetry 97 97 97 02/06/18 01:00 02/06/18 01:30 02/06/18 01:59 Temperature Pulse Rate 89 89 87 Respiratory Rate 23 13 17 Blood Pressure 179/110 H 177/127 H 184/122 H Pulse Oximetry 99 98 99 02/06/18 02:00 02/06/18 02:31 02/06/18 03:00 Temperature Pulse Rate 88 101 H 98 H Respiratory Rate 17 26 H 18 Blood Pressure 180/122 H 188/111 H 179/122 H Pulse Oximetry 98 98 98 02/06/18 03:30 02/06/18 03:46 02/06/18 04:00 Temperature 98.7 F Pulse Rate 94 H 96 H 97 H Respiratory Rate 2 L 18 18 Blood Pressure 173/120 H 169/102 H Pulse Oximetry 97 99 02/06/18 04:30 02/06/18 05:00 02/06/18 05:30 Temperature Pulse Rate 99 H 98 H 96 H Respiratory Rate 20 32 H 22 Blood Pressure 173/116 H 160/109 H 149/102 H Pulse Oximetry 100 99 98 02/06/18 06:00 02/06/18 06:30 02/06/18 07:00 Temperature Pulse Rate 98 H 101 H 92 H Respiratory Rate 18 17 19 Blood Pressure 158/102 H 165/106 H 164/104 H Pulse Oximetry 98 97 100 02/06/18 07:30 02/06/18 08:00 02/06/18 08:30 Temperature 98.4 F Pulse Rate 92 H 91 H 89 Respiratory Rate 15 16 15 Blood Pressure 158/97 H 159/100 H 169/114 H Pulse Oximetry 100 99 98 02/06/18 08:53 02/06/18 09:00 02/06/18 09:24 Temperature Pulse Rate 85 84 Respiratory Rate 30 H 20 Blood Pressure 175/117 H 134/91 H Pulse Oximetry 96 100 100 02/06/18 09:30 02/06/18 10:00 02/06/18 10:30 Temperature Pulse Rate 89 84 84 Respiratory Rate 18 27 H Blood Pressure 141/93 H 133/82 136/83 Pulse Oximetry 100 97 100 02/06/18 11:00 02/06/18 11:30 02/06/18 12:00 Temperature 98.6 F Pulse Rate 84 78 77 Respiratory Rate Blood Pressure 145/95 H 145/89 H 133/83 Pulse Oximetry 99 100 100 Intake & Output 02/05/18 02/06/18 02/06/18 18:59 06:59 18:59 Intake Total 960 / 960 480 / 480 340 / 340 Output Total 500 / 500 500 / 500 Balance 460 / 460 -20 / -20 340 / 340 Weight 70.6 kg Intake: Oral 960 / 960 480 / 480 340 / 340 Output: Urine 500 / 500 500 / 500 Other: # Voids 1 Date of Last Bowel Movement 02/05/18 02/05/18 02/05/18 # Bowel Movements 0 Narrative: Awake and alert, no acute distress No facial droop, no slurred speech Clear lungs bilaterally, unlabored breathing Heart sounds regular rate and rhythm, no murmurs No lower extremity edema Results - Labs CBC & Chem 7: 02/06/18 05:37 02/06/18 05:37 Laboratory Results - last 24 hr 02/05/18 02/06/18 02/06/18 12:11 05:37 05:37 WBC 8.8 RBC 3.47 L Hgb 10.6 L Hct 30.6 L MCV 88.3 MCH 30.6 MCHC 34.7 RDW 14.7 Plt Count 180 MPV 9.9 Neut % (Auto) 78.4 H Lymph % (Auto) 11.4 Parmer % (Auto) 5.9 Eos % (Auto) 3.2 Baso % (Auto) 1.1 Neut # (Auto) 6.9 Lymph # (Auto) 1.0 Parmer # (Auto) 0.5 Eos # (Auto) 0.3 Baso # (Auto) 0.1 WBC Differential . Differential Comment Auto diff final Sodium 134 L Potassium 3.5 Chloride 97 L Carbon Dioxide 27.0 Anion Gap 10 BUN 55 H Creatinine 7.15 H Estimated GFR 11 L Random Glucose 103 Calcium 8.6 Phosphorus 5.6 H D Magnesium 2.2 Cyclosporine ISAK Screen Neg 02/06/18 10:28 WBC RBC Hgb Hct MCV MCH MCHC RDW Plt Count MPV Neut % (Auto) Lymph % (Auto) Parmer % (Auto) Eos % (Auto) Baso % (Auto) Neut # (Auto) Lymph # (Auto) Parmer # (Auto) Eos # (Auto) Baso # (Auto) WBC Differential Differential Comment Sodium Potassium Chloride Carbon Dioxide Anion Gap BUN Creatinine Estimated GFR Random Glucose Calcium Phosphorus Magnesium Cyclosporine Less than 30 ISAK Screen Microbiology 02/01/18 11:21 Blood - Peripheral Aerobic Blood Culture - Final No growth in 5 days 02/01/18 11:21 Blood - Peripheral Anaerobic Blood Culture - Final No growth in 5 days 02/01/18 11:26 Blood - Peripheral Aerobic Blood Culture - Final No growth in 5 days 02/01/18 11:26 Blood - Peripheral Anaerobic Blood Culture - Final No growth in 5 days Assessment and Plan - Plan 32-year-old black male was admitted with hypertensive emergency to the ICU with fulminant acute renal failure. Underwent dialysis with improvement in his blood pressures. Hypertensive emergency Emergency element has resolved as his symptoms have resolved but has residual end-organ damage to his kidneys -Continue oral antihypertensives Acute and possible end-stage renal disease Nephrology following, patient has a Vas-Cath, vascular surgery consulted for AV fistula evaluation
--- NOTE | 2018-02-06 16:43 | US ---
EXAM DATE: 02/06/2018 4:39 PM EST AGE/SEX: 32 years / Male INDICATIONS: AVF Placement. CLINICAL DATA: This is the patient's initial encounter. Patient reports that signs and symptoms have been present for 1 day and indicates a pain score of 1/10. MEDICAL/SURGICAL HISTORY: . No known medical history. None. COMPARISON: No prior exams available for comparison. FINDINGS: Right Upper Extremity: The vessels are compressible and augmentation response is documented. No fill ing defects are seen. The flow is phasic with respiration. Left Upper Extremity: Occlusive thrombus in the distal left basilic vein. Left jugular vein, subclavi an vein, axillary vein, brachial vein and ulnar veins are patent. Other: None. CONCLUSION: 1. No deep venous thrombosis in the right arm. 2. Occlusive thrombus in the left basilic vein. Electronically signed by: Micky Crane MD Board Certified Radiologist 02/06/2018 4:42 PM EST
--- NOTE | 2018-02-06 17:05 | US ---
EXAM DATE: 02/06/2018 4:55 PM EST AGE/SEX: 32 years / Male INDICATIONS: AVF placement. CLINICAL DATA: This is the patient's initial encounter. Patient reports that signs and symptoms have been present for 1 day and indicates a pain score of 1/10. MEDICAL/SURGICAL HISTORY: Hypertension. ETOH. Acute renal failure. None. COMPARISON: No prior exams available for comparison. MEASUREMENTS: RIGHT: CEPHALIC: Origin:__1 mm Mid-Arm:__2 mm Elbow:__Non-visualized Forearm:__1 mm Wrist:__1 mm BASILIC: Origin:__6 mm Mid-Arm:__3 mm Elbow:__2 mm ARTERIES: Brachial:__7 mm Ulnar:__2 mm Radial:__3 mm VEINS: Radial:__Non-visualized Ulnar:__3 mm LEFT: CEPHALIC: Origin:__Non-visualized Mid-Arm:__Non-visualized Elbow:__Non-visualized Forearm:__Non-visualized Wrist:__Non-visualized BASILIC: Origin:__3 mm Mid-Arm:__2 mm Elbow:__Thrombosed ARTERIES: Brachial:__6 mm Ulnar:__3 mm Radial:__2 mm VEINS: Radial:__2 mm Ulnar:__1 mm FINDINGS: The venous system of the upper extremities are patent by color Doppler imaging. Measurements of the arm veins (in mm) are listed above. CONCLUSION: 1. Venous mapping as above. 2. Nonvisualization of the veins in both upper extremities as above. Electronically signed by: Micky Crane MD Board Certified Radiologist 02/06/2018 5:03 PM EST
--- NOTE | 2018-02-07 07:27 | P.PNVS ---
Subjective Subjective/Hospital Course: pt with new onset HD needs AVF resting this morning, transferred out of ICU Objective Vital Signs / I&O: Vital Signs 02/06/18 07:30 02/06/18 08:00 02/06/18 08:30 Temperature 98.4 F Pulse Rate 92 H 91 H 89 Respiratory Rate 15 16 15 Blood Pressure 158/97 H 159/100 H 169/114 H Pulse Oximetry 100 99 98 02/06/18 08:53 02/06/18 09:00 02/06/18 09:24 Temperature Pulse Rate 85 84 Respiratory Rate 30 H 20 Blood Pressure 175/117 H 134/91 H Pulse Oximetry 96 100 100 02/06/18 09:30 02/06/18 10:00 02/06/18 10:30 Temperature Pulse Rate 89 84 84 Respiratory Rate 18 27 H Blood Pressure 141/93 H 133/82 136/83 Pulse Oximetry 100 97 100 02/06/18 11:00 02/06/18 11:30 02/06/18 12:00 Temperature 98.6 F Pulse Rate 84 78 77 Respiratory Rate Blood Pressure 145/95 H 145/89 H 133/83 Pulse Oximetry 99 100 100 02/06/18 12:31 02/06/18 13:00 02/06/18 13:30 Temperature Pulse Rate 82 85 80 Respiratory Rate Blood Pressure 150/97 H 140/99 H 126/72 Pulse Oximetry 88 L 97 02/06/18 14:00 02/06/18 14:30 02/06/18 15:00 Temperature 98.6 F Pulse Rate 82 83 81 Respiratory Rate 55 H Blood Pressure 123/71 128/76 133/79 Pulse Oximetry 100 100 97 02/06/18 16:00 02/06/18 16:14 02/06/18 19:00 Temperature Pulse Rate 78 81 90 Respiratory Rate Blood Pressure 159/100 H Pulse Oximetry 100 02/06/18 20:00 02/06/18 20:33 02/06/18 20:36 Temperature 98.0 F Pulse Rate 86 87 Respiratory Rate 16 Blood Pressure 139/85 Pulse Oximetry 98 98 02/06/18 21:00 02/06/18 22:00 02/06/18 23:00 Temperature Pulse Rate 92 H 86 85 Respiratory Rate Blood Pressure Pulse Oximetry 02/07/18 00:00 02/07/18 00:42 02/07/18 01:00 Temperature 98.5 F Pulse Rate 88 85 85 Respiratory Rate 16 Blood Pressure 158/102 H 154/96 H Pulse Oximetry 97 02/07/18 02:00 02/07/18 03:00 02/07/18 03:30 Temperature Pulse Rate 75 77 80 Respiratory Rate 16 Blood Pressure 127/83 Pulse Oximetry 99 02/07/18 04:00 02/07/18 05:00 02/07/18 06:00 Temperature Pulse Rate 77 79 84 Respiratory Rate Blood Pressure Pulse Oximetry Intake & Output 02/06/18 02/07/18 02/07/18 18:59 06:59 18:59 Intake Total 820 / 820 240 / 240 Output Total 900 / 900 Balance -80 / -80 240 / 240 Weight 65.5 kg Intake: Oral 820 / 820 240 / 240 Output: Urine 900 / 900 Other: # Voids 1 Date of Last Bowel Movement 02/06/18 # Bowel Movements 1 Physical Exam: resting no incisions either arm Laboratory Results - last 24 hr 02/05/18 02/06/18 12:11 10:28 Cyclosporine Less than 30 ISAK Screen Neg Microbiology 02/01/18 11:21 Aerobic Blood Culture - Final Blood - Peripheral No growth in 5 days Anaerobic Blood Culture - Final No growth in 5 days 02/01/18 11:26 Aerobic Blood Culture - Final Blood - Peripheral No growth in 5 days Anaerobic Blood Culture - Final No growth in 5 days Impressions Upper Extremity Ultrasound 02/06/18 00:00 CONCLUSION: 1. Venous mapping as above. 2. Nonvisualization of the veins in both upper extremities as above. Venous Doppler Study 02/06/18 00:00 CONCLUSION: 1. No deep venous thrombosis in the right arm. 2. Occlusive thrombus in the left basilic vein. Assessment and Plan - Plan 32 yo male with new onset HD needs likely from HTN UE vein survey reviewed. Although RIGHT handed, best option is RIGHT brachiobasilic, which is marginal but given young age, it is my recommendations 1. RIGHT arm precautions 2. RIGHT brachiobasilic (planned 2 stage) when patient is ready. Can perform surgery as early as tomorrow (Wed) if pt agrees
--- NOTE | 2018-02-07 09:38 | P.PNNP ---
Subjective Interval history: Patient was seen during dialysis, no distress. Patient has been transferred out of the ICU. Labs for today are pending. Dr. Lombardo was consulted for AVF placement, procedure can be done tomorrow. <Gelacio Rosenbaum - Last Filed: 02/07/18 09:39> Physical Exam Vital signs: Vital Signs 02/06/18 10:00 02/06/18 10:30 02/06/18 11:00 Temperature Pulse Rate 84 84 84 Respiratory Rate 27 H Blood Pressure 133/82 136/83 145/95 H Pulse Oximetry 97 100 99 02/06/18 11:30 02/06/18 12:00 02/06/18 12:31 Temperature 98.6 F Pulse Rate 78 77 82 Respiratory Rate Blood Pressure 145/89 H 133/83 150/97 H Pulse Oximetry 100 100 02/06/18 13:00 02/06/18 13:30 02/06/18 14:00 Temperature 98.6 F Pulse Rate 85 80 82 Respiratory Rate 55 H Blood Pressure 140/99 H 126/72 123/71 Pulse Oximetry 88 L 97 100 02/06/18 14:30 02/06/18 15:00 02/06/18 16:00 Temperature Pulse Rate 83 81 78 Respiratory Rate Blood Pressure 128/76 133/79 Pulse Oximetry 100 97 100 02/06/18 16:14 02/06/18 19:00 02/06/18 20:00 Temperature Pulse Rate 81 90 86 Respiratory Rate Blood Pressure 159/100 H Pulse Oximetry 02/06/18 20:33 02/06/18 20:36 02/06/18 21:00 Temperature 98.0 F Pulse Rate 87 92 H Respiratory Rate 16 Blood Pressure 139/85 Pulse Oximetry 98 98 02/06/18 22:00 02/06/18 23:00 02/07/18 00:00 Temperature 98.5 F Pulse Rate 86 85 88 Respiratory Rate 16 Blood Pressure 158/102 H Pulse Oximetry 97 02/07/18 00:42 02/07/18 01:00 02/07/18 02:00 Temperature Pulse Rate 85 85 75 Respiratory Rate Blood Pressure 154/96 H Pulse Oximetry 02/07/18 03:00 02/07/18 03:30 02/07/18 04:00 Temperature Pulse Rate 77 80 77 Respiratory Rate 16 Blood Pressure 127/83 Pulse Oximetry 99 02/07/18 05:00 02/07/18 06:00 Temperature Pulse Rate 79 84 Respiratory Rate Blood Pressure Pulse Oximetry Intake & Output 02/06/18 02/07/18 02/07/18 18:59 06:59 18:59 Intake Total 820 / 820 240 / 240 Output Total 900 / 900 Balance -80 / -80 240 / 240 Weight 65.5 kg Intake: Oral 820 / 820 240 / 240 Output: Urine 900 / 900 Other: # Voids 1 Date of Last Bowel Movement 02/06/18 # Bowel Movements 1 Narrative: Awake and alert, no acute distress. Clear lungs bilaterally, unlabored breathing, no respiratory distress. Heart sounds regular rate and rhythm, no murmurs. No lower extremity edema. <Gelacio Rosenbaum - Last Filed: 02/07/18 09:39> Vital signs: Vital Signs 02/07/18 09:00 02/07/18 10:00 02/07/18 11:00 Temperature Pulse Rate 80 80 82 Respiratory Rate Blood Pressure Pulse Oximetry 02/07/18 12:00 02/07/18 13:00 02/07/18 14:00 Temperature 98.4 F Pulse Rate 88 93 H 81 Respiratory Rate 16 Blood Pressure 158/114 H Pulse Oximetry 100 02/07/18 15:00 02/07/18 16:00 02/07/18 17:00 Temperature 98 F Pulse Rate 78 84 84 Respiratory Rate 17 Blood Pressure 136/66 Pulse Oximetry 96 02/07/18 18:00 02/07/18 19:00 02/07/18 20:00 Temperature 98.3 F Pulse Rate 84 86 90 Respiratory Rate 16 Blood Pressure 127/63 Pulse Oximetry 95 02/07/18 21:00 02/07/18 22:00 02/07/18 23:00 Temperature Pulse Rate 84 86 86 Respiratory Rate Blood Pressure Pulse Oximetry 02/08/18 00:00 02/08/18 01:00 02/08/18 02:00 Temperature 98.4 F Pulse Rate 86 80 76 Respiratory Rate 16 Blood Pressure 127/73 Pulse Oximetry 97 02/08/18 03:00 02/08/18 04:00 02/08/18 05:00 Temperature Pulse Rate 74 74 74 Respiratory Rate Blood Pressure Pulse Oximetry Intake & Output 12/18/18 12/19/18 12/19/18 18:59 06:59 18:59 Intake Total 720 / 720 720 / 720 Output Total 3000 / 3000 Balance -2280 / -2280 720 / 720 Weight 65 kg Intake: Oral 720 / 720 720 / 720 Output: Hemodialysis Amount 3000 / 3000 Other: # Voids 2 3 Date of Last Bowel Movement 02/07/18 02/07/18 # Bowel Movements 1 <Deejay Whitten - Last Filed: 02/08/18 08:41> Assessment and Plan - Assessment (1) Acute renal failure Code(s): N17.9 - Acute kidney failure, unspecified Status: Acute Qualifiers: Acute renal failure type: unspecified Qualified Code(s): N17.9 - Acute kidney failure, unspecified Plan: Patient appears to have ESRD. Currently getting dialysis TTS. We have no baseline lab work for the patient. Hypertensive crisis could be due to renal failure or acute renal failure could be due to malignant hypertension. Patient was seen during dialysis, 300 ml/min, goal of 3 L. Labs for today are pending. Dr. Lombardo was consulted for AVF placement, procedure can be done tomorrow. Possible kidney biopsy later this week. Malignant hypertension? Avoid nephrotoxic agents. Monitor fluid and electrolytes. Needs outpatient dialysis arrangements. (2) Hypopotassemia Code(s): E87.6 - Hypokalemia Status: Acute Plan: Potassium improved with dialysis. (3) Hypertensive emergency Code(s): I16.1 - Hypertensive emergency Status: Acute Plan: Patient given IVP Metoprolol in the ED. Was on Cleviprex drip but has been discontinued. On Clonidine, Hydralazine, and Labetalol. BP has improved today. Monitor BP. <Gelacio Rosenbaum - Last Filed: 02/07/18 09:39> - Assessment (1) Acute renal failure Code(s): N17.9 - Acute kidney failure, unspecified Status: Acute Qualifiers: Acute renal failure type: unspecified Qualified Code(s): N17.9 - Acute kidney failure, unspecified (2) Hypopotassemia Code(s): E87.6 - Hypokalemia Status: Acute (3) Hypertensive emergency Code(s): I16.1 - Hypertensive emergency Status: Acute - Attending Attestation patient was seen and examined. AVF surgery is scheduled. Patient is considering renal biopsy. Needs outpatient dialysis arrangements at [facility] in [facility]. <Deejay Whitten - Last Filed: 02/08/18 08:41>
[2018-02-07 09:44] LABS: Baso % (Auto) 0.9 % (0.0-2.0); Eos # (Auto) 0.2 th/mm3 (0.0-0.4); Eos % (Auto) 6.4 % (0.0-4.0); Hematocrit 30.3 % (39.0-51.0); Hemoglobin 10.5 gm/dL (13.0-17.0); Lymph # (Auto) 1.3 th/mm3 (1.0-4.8); Lymph % (Auto) 40.6 % (9.0-44.0); Mean Corpuscular HGB Conc 34.6 % (32.0-36.0); Mean Corpuscular Hemoglobin 30.8 pg (27.0-34.0); Mean Corpuscular Volume 88.9 fL (80.0-100.0); Mean Platelet Volume 8.9 fL (7.0-11.0); Mono # (Auto) 0.2 th/mm3 (0.0-0.9); Mono % (Auto) 4.7 % (0.0-8.0); Neut # (Auto) 1.6 th/mm3 (1.8-7.7); Neut % (Auto) 47.4 % (16.0-70.0); Platelet Count 194 th/mm3 (150-450); Red Blood Count 3.41 mil/mm3 (4.50-5.90); Red Cell Distribution Width 14.4 % (11.6-17.2); White Blood Count 3.3 th/mm3 (4.0-11.0)
--- NOTE | 2018-02-07 09:46 | P.PNIM ---
Subjective Interval history: Patient reports he is feeling ok today. is agreeable to AV fistula placement. No chest pain or shortness of breath. Physical Exam Vital signs: Last Vital Signs Temp 98.5 F 02/07/18 00:00 Pulse 84 02/07/18 06:00 Resp 16 02/07/18 03:30 BP 127/83 02/07/18 03:30 Pulse Ox 99 02/07/18 03:30 Intake & Output 02/05/18 02/06/18 02/07/18 02/08/18 06:59 06:59 06:59 06:59 Intake Total 1807 / 1807 1440 / 1440 1060 / 1060 Output Total 2600 / 2600 1000 / 1000 900 / 900 Balance -793 / -793 440 / 440 160 / 160 Weight 69.7 kg 70.6 kg 65.5 kg Narrative: GENERAL: This is a well-nourished, well-developed patient, in no apparent distress. CARDIOVASCULAR: Normal rate and regular rhythm without murmurs, gallops, or rubs. RESPIRATORY: Good respiratory efforts. Breath sounds equal and clear to auscultation bilaterally. GASTROINTESTINAL: Abdomen soft, non-tender, non-distended. Normal active bowel sounds MUSCULOSKELETAL: Extremities without cyanosis, or edema. NEURO: Alert & Oriented x4 to person, place, time, situation. Moves all ext x4 PSYCH: Appropriate mood and affect. Results Labs CBC & Chem 7: 02/07/18 09:00 02/07/18 09:00 Labs: Microbiology 02/01/18 11:21 Blood - Peripheral Aerobic Blood Culture - Final No growth in 5 days 02/01/18 11:21 Blood - Peripheral Anaerobic Blood Culture - Final No growth in 5 days 02/01/18 11:26 Blood - Peripheral Aerobic Blood Culture - Final No growth in 5 days 02/01/18 11:26 Blood - Peripheral Anaerobic Blood Culture - Final No growth in 5 days Imaging Imaging: Impressions Upper Extremity Ultrasound 02/06/18 00:00 CONCLUSION: 1. Venous mapping as above. 2. Nonvisualization of the veins in both upper extremities as above. Venous Doppler Study 02/06/18 00:00 CONCLUSION: 1. No deep venous thrombosis in the right arm. 2. Occlusive thrombus in the left basilic vein. Assessment and Plan (1) Acute renal failure: Code(s): N17.9 - Acute kidney failure, unspecified Status: Acute (2) Hypopotassemia: Code(s): E87.6 - Hypokalemia Status: Acute (3) Hypertensive emergency: Code(s): I16.1 - Hypertensive emergency Status: Acute Plan 32-year-old black male was admitted with hypertensive emergency to the ICU with fulminant acute renal failure. Underwent dialysis with improvement in his blood pressures. Hypertensive emergency Blood pressure improved but he has end-organ damage to his kidneys requiring dialysis -Continue oral antihypertensives. Continue hydralazine, losartan, labetalol, and clonidine. Adjust antihypertensives as needed. Acute and possible end-stage renal disease Nephrology following, patient has a Vas-Cath, vascular surgery planning for AV fistula placement on the right upper extremity tomorrow. -Discussed with nephrology today. Considering kidney biopsy Hypokalemia: Mild. HD today. Continue to monitor. Progress Note: Quality VTE Deep Vein Thrombosis/Pulmonary Embolism Present on Admission: No _ (1) Acute renal failure Qualifiers: Acute renal failure type: unspecified Qualified Code(s): N17.9 - Acute kidney failure, unspecified
[2018-02-07 10:06] LABS: Calcium 8.5 mg/dL (8.5-10.1); Carbon Dioxide 27.6 meq/L (21.0-32.0); Potassium 3.2 meq/L (3.5-5.1)
[2018-02-07] MEDS: Heparin 10,000 UNITS/10 ML Vial (for IV use) OTHER PRN (11:49)
[2018-02-07] MEDS: Labetalol 100 MG Tablet PO SCH ×2 (13:11→23:26)
[2018-02-07] MEDS: hydrALAZINE 25 MG Tablet PO SCH ×3 (13:12→20:25)
[2018-02-07] MEDS: Calcium Acetate 667 MG Capsule PO SCH ×3 (13:13→20:09)
[2018-02-07] MEDS: Heparin - SQ 10,000 UNITS/ML Vial SQ SCH ×2 (13:14→20:27)
[2018-02-07] MEDS: Vitamin B Complex/Vit C/Folic Tablet PO SCH (13:14)
[2018-02-07] MEDS: Senna/Docusate Sodium 8.6/50 MG Tablet PO SCH ×2 (13:14→20:28)
[2018-02-08 05:05] LABS: Hemoglobin 10.2 gm/dL (13.0-17.0); Mean Corpuscular HGB Conc 33.9 % (32.0-36.0); Mean Corpuscular Hemoglobin 30.7 pg (27.0-34.0); Mean Corpuscular Volume 90.4 fL (80.0-100.0); Mean Platelet Volume 9.2 fL (7.0-11.0); Platelet Count 246 th/mm3 (150-450); Red Blood Count 3.32 mil/mm3 (4.50-5.90); White Blood Count 6.8 th/mm3 (4.0-11.0)
[2018-02-08 05:37] LABS: Calcium 8.3 mg/dL (8.5-10.1); Carbon Dioxide 27.8 meq/L (21.0-32.0); Potassium 3.4 meq/L (3.5-5.1)
[2018-02-08] MEDS ORDERED: Sodium Chlor 0.9% Inj 500 ML IV.CONT ONE (06:30)
[2018-02-08] MEDS ORDERED: Chlorhexidine Gluconate 2% 1 Pack (2 Cloths) TOPICAL ONE (06:30)
--- NOTE | 2018-02-08 08:45 | P.PNIM ---
Subjective Interval history: Patient reports he is feeling okay today. No new issues. Discussed with RN. Physical Exam Vital signs: Last Vital Signs Temp 98.4 F 02/08/18 00:00 Pulse 74 02/08/18 05:00 Resp 16 02/08/18 00:00 BP 127/73 02/08/18 00:00 Pulse Ox 98 02/08/18 08:42 Intake & Output 02/06/18 02/07/18 02/08/18 02/09/18 06:59 06:59 06:59 06:59 Intake Total 1440 / 1440 1060 / 1060 1440 / 1440 Output Total 1000 / 1000 900 / 900 3000 / 3000 Balance 440 / 440 160 / 160 -1560 / -1560 Weight 70.6 kg 65.5 kg 65 kg Narrative: GENERAL: This is a well-nourished, well-developed patient, in no apparent distress. CARDIOVASCULAR: Normal rate and regular rhythm without murmurs, gallops, or rubs. RESPIRATORY: Good respiratory efforts. Breath sounds equal and clear to auscultation bilaterally. GASTROINTESTINAL: Abdomen soft, non-tender, non-distended. Normal active bowel sounds MUSCULOSKELETAL: Extremities without cyanosis, or edema. NEURO: Alert & Oriented x4 to person, place, time, situation. Moves all ext x4 PSYCH: Appropriate mood and affect. Results Labs CBC & Chem 7: 02/08/18 04:45 02/08/18 04:45 Assessment and Plan (1) Acute renal failure: Code(s): N17.9 - Acute kidney failure, unspecified Status: Acute (2) Hypopotassemia: Code(s): E87.6 - Hypokalemia Status: Acute (3) Hypertensive emergency: Code(s): I16.1 - Hypertensive emergency Status: Acute Plan 32-year-old black male was admitted with hypertensive emergency to the ICU with fulminant acute renal failure. Underwent dialysis with improvement in his blood pressures. Hypertensive emergency Blood pressure improved but he has end-organ damage to his kidneys requiring dialysis -Continue oral antihypertensives. Continue hydralazine, losartan, labetalol, and clonidine. Adjust antihypertensives as needed. Acute and possible end-stage renal disease Nephrology following, patient has a Vas-Cath, vascular surgery planning for AV fistula placement on the right upper extremity today. -Previously discussed with nephrology. Considering kidney biopsy -We will need outpatient dialysis set up Hypokalemia: Mild. Improved. Continue to monitor. Progress Note: Quality VTE Deep Vein Thrombosis/Pulmonary Embolism Present on Admission: No _ (1) Acute renal failure Qualifiers: Acute renal failure type: unspecified Qualified Code(s): N17.9 - Acute kidney failure, unspecified
[2018-02-08] MEDS: Labetalol 100 MG Tablet PO SCH ×2 (08:57→21:33)
[2018-02-08] MEDS: Vitamin B Complex/Vit C/Folic Tablet PO SCH (08:58)
[2018-02-08] MEDS: hydrALAZINE 25 MG Tablet PO SCH ×3 (09:00→17:57)
[2018-02-08] MEDS: Calcium Acetate 667 MG Capsule PO SCH ×3 (09:00→17:57)
[2018-02-08] MEDS: Senna/Docusate Sodium 8.6/50 MG Tablet PO SCH ×2 (09:01→21:34)
[2018-02-08] MEDS: Heparin - SQ 10,000 UNITS/ML Vial SQ SCH ×2 (09:42→21:33)
--- NOTE | 2018-02-08 10:41 | P.PNNP ---
Subjective Interval history: Patient was seen, no distress, states he feels a lot better today. Patient gets dialysis TTS. AVF placement in right arm this afternoon with Dr. Lombardo. Consult was put in to IR for kidney biopsy. Possible kidney biopsy later this week. <Gelacio Rosenbaum - Last Filed: 02/08/18 11:15> Physical Exam Vital signs: Vital Signs 02/07/18 11:00 02/07/18 12:00 02/07/18 13:00 Temperature 98.4 F Pulse Rate 82 88 93 H Respiratory Rate 16 Blood Pressure 158/114 H Pulse Oximetry 100 02/07/18 14:00 02/07/18 15:00 02/07/18 16:00 Temperature 98 F Pulse Rate 81 78 84 Respiratory Rate 17 Blood Pressure 136/66 Pulse Oximetry 96 02/07/18 17:00 02/07/18 18:00 02/07/18 19:00 Temperature Pulse Rate 84 84 86 Respiratory Rate Blood Pressure Pulse Oximetry 02/07/18 20:00 02/07/18 21:00 02/07/18 22:00 Temperature 98.3 F Pulse Rate 90 84 86 Respiratory Rate 16 Blood Pressure 127/63 Pulse Oximetry 95 02/07/18 23:00 02/08/18 00:00 02/08/18 01:00 Temperature 98.4 F Pulse Rate 86 86 80 Respiratory Rate 16 Blood Pressure 127/73 Pulse Oximetry 97 02/08/18 02:00 02/08/18 03:00 02/08/18 04:00 Temperature Pulse Rate 76 74 74 Respiratory Rate Blood Pressure Pulse Oximetry 02/08/18 05:00 02/08/18 07:00 02/08/18 08:00 Temperature Pulse Rate 74 72 76 Respiratory Rate Blood Pressure Pulse Oximetry 02/08/18 08:42 02/08/18 08:52 02/08/18 09:00 Temperature 98 F Pulse Rate 82 82 Respiratory Rate 17 Blood Pressure 144/95 H Pulse Oximetry 98 97 02/08/18 10:00 02/08/18 10:25 Temperature Pulse Rate 82 Respiratory Rate Blood Pressure Pulse Oximetry 97 Intake & Output 02/07/18 02/08/18 02/08/18 18:59 06:59 18:59 Intake Total 720 / 720 720 / 720 Output Total 3000 / 3000 Balance -2280 / -2280 720 / 720 Weight 65 kg Intake: Oral 720 / 720 720 / 720 Output: Hemodialysis Amount 3000 / 3000 Other: # Voids 2 3 Date of Last Bowel Movement 02/07/18 02/07/18 02/07/18 # Bowel Movements 1 Narrative: GENERAL: No apparent distress. CARDIOVASCULAR: Normal rate and regular rhythm without murmurs, gallops, or rubs. RESPIRATORY: Breath sounds equal and clear to auscultation bilaterally. GASTROINTESTINAL: Abdomen soft, non-tender, non-distended. MUSCULOSKELETAL: Extremities without cyanosis, or edema. NEURO: Alert & Oriented x3. PSYCH: Appropriate mood and affect. <Gelacio Rosenbaum - Last Filed: 02/08/18 11:15> Vital signs: Vital Signs 02/08/18 23:00 02/09/18 00:00 02/09/18 01:00 Temperature 97.8 F Pulse Rate 92 H 75 75 Respiratory Rate 16 Blood Pressure 111/65 Pulse Oximetry 95 02/09/18 02:00 02/09/18 03:00 02/09/18 04:00 Temperature 98.6 F Pulse Rate 76 75 84 Respiratory Rate 16 Blood Pressure 133/87 Pulse Oximetry 95 02/09/18 05:00 02/09/18 06:00 02/09/18 07:00 Temperature Pulse Rate 84 84 84 Respiratory Rate Blood Pressure Pulse Oximetry 02/09/18 07:44 02/09/18 13:00 02/09/18 14:00 Temperature 98.4 F 98 F Pulse Rate 81 84 86 Respiratory Rate 17 17 Blood Pressure 131/78 156/112 H Pulse Oximetry 98 98 02/09/18 15:00 02/09/18 16:00 02/09/18 17:00 Temperature Pulse Rate 78 80 86 Respiratory Rate Blood Pressure Pulse Oximetry 02/09/18 17:15 02/09/18 18:39 Temperature 97.9 F Pulse Rate 81 83 Respiratory Rate 17 Blood Pressure 116/63 Pulse Oximetry 99 Intake & Output 02/09/18 02/09/18 02/10/18 06:59 18:59 06:59 Intake Total 680 / 680 480 / 480 Output Total 2350 / 2350 Balance 680 / 680 -1870 / -1870 Weight 65 kg Intake: Oral 680 / 680 480 / 480 Output: Urine 350 / 350 Hemodialysis Amount 1999 / 1999 Other: # Voids 1 2 Date of Last Bowel Movement 02/07/19 <Deejay Whitten - Last Filed: 02/09/18 22:10> Assessment and Plan - Assessment (1) Acute renal failure Code(s): N17.9 - Acute kidney failure, unspecified Status: Acute Qualifiers: Acute renal failure type: unspecified Qualified Code(s): N17.9 - Acute kidney failure, unspecified Plan: Patient appears to have ESRD. Currently getting dialysis TTS. We have no baseline lab work for the patient. Hypertensive crisis could be due to renal failure or acute renal failure could be due to malignant hypertension. Patient gets dialysis TTS. AVF placement today with Dr. Lombardo. Consult was put in to IR for kidney biopsy. Possible kidney biopsy later this week. Avoid nephrotoxic agents. Monitor fluid and electrolytes. Making outpatient dialysis arrangements for patient at [facility]. (2) Hypopotassemia Code(s): E87.6 - Hypokalemia Status: Acute Plan: Potassium improved with dialysis. (3) Hypertensive emergency Code(s): I16.1 - Hypertensive emergency Status: Acute Plan: Patient given IVP Metoprolol in the ED. Was on Cleviprex drip but has been discontinued. On Clonidine, Hydralazine, and Labetalol. BP has improved. Monitor BP. <Gelacio Rosenbaum - Last Filed: 02/08/18 11:15> - Assessment (1) Acute renal failure Code(s): N17.9 - Acute kidney failure, unspecified Status: Acute Qualifiers: Acute renal failure type: unspecified Qualified Code(s): N17.9 - Acute kidney failure, unspecified (2) Hypopotassemia Code(s): E87.6 - Hypokalemia Status: Acute (3) Hypertensive emergency Code(s): I16.1 - Hypertensive emergency Status: Acute - Attending Attestation patient was seen and examined. Continue dialysis, he has reached ESRD. Biopsy will not change the management. Will reevaluate need for renal biopsy <Deejay Whitten - Last Filed: 02/09/18 22:10>
[2018-02-08] MEDS ORDERED: Heparin 10,000 UNITS/10 ML Vial (for IV use) ONE (11:04)
[2018-02-08] MEDS ORDERED: Protamine Sulfate Inj 50 MG/5 ML Vial ONE (11:04)
[2018-02-08] MEDS ORDERED: Bupivacaine/Epinephrine PF Inj 0.5% 30 ML Vial ONE (11:04)
[2018-02-08] MEDS ORDERED: Heparin/NS PF Inj 500 ML ONE (11:05)
[2018-02-08] MEDS ORDERED: Thrombin Topical 20,000 UNIT Spray Kit TOPICAL ONE (11:06)
[2018-02-08] MEDS ORDERED: Tuberculin PPD 5 UNITS/0.1 ML Syringe I-DERMAL ONE (12:02)
[2018-02-08] MEDS ORDERED: fentaNYL Citrate Inj 100 MCG/2 ML Ampul ONE (14:23)
[2018-02-08] MEDS ORDERED: *morphine SULFATE 10 MG/ML PERIprocedure ONLY ONE (14:23)
--- NOTE | 2018-02-08 14:38 | P.OP ---
Preoperative Diagnosis: End-stage renal disease Postoperative Diagnosis: End-stage renal disease Date of procedure: 02/08/18 Procedure: Right brachiocephalic AV fistula creation. Anesthesia: GETA Surgeon: Gio Kirkpatrick MD Estimated blood loss (mL): 5 Operation and Findings: Findings 1. Ultrasound was used to obtain the measurement intraoperatively. Right cephalic vein measured approximately 3 mm in diameter. The right brachial artery measured approximately 4 mm in diameter. 2. Successful right brachiocephalic AV fistula creation. There is good thrill into the fistula and a multiphasic radial and ulnar signal at the end of the operation. Operation details The patient was taken to the operating room, laid supine on the OR table. After adequate sedation the patient was prepped and draped in the standard sterile fashion. Timeout was called with all members in the OR in agreement. An incision was made in the right antecubital fossa. Dissection was taken down through the subcutaneous tissues electrocautery. The cephalic vein was identified and dissected. The brachial artery was identified dissected and encircled Silastic loop. The median nerve identified and protected. The patient was heparinized. The cephalic vein was ligated distally and divided. Proximal distal control was obtained in the brachial artery. Arteriotomy was created that measured approximately 1 cm in length. And the anastomosis fashioned using a 6-0 Prolene suture in the running fashion. Hemostasis achieved. Wound was closed in multiple layers using Vicryl suture followed by Monocryl suture. Sterile dressing was applied. The patient tolerated the procedure well and was taken to recovery unit in stable condition.
[2018-02-08 21:51] LABS: Hepatitits B Surface Antigen Nonreactive (Nonreactive)
[2018-02-08 21:54] LABS: Hepatitis A IgM Antibody Nonreactive (Nonreactive)
[2018-02-09 05:12] LABS: Hematocrit 30.8 % (39.0-51.0); Hemoglobin 10.3 gm/dL (13.0-17.0); Mean Corpuscular HGB Conc 33.6 % (32.0-36.0); Mean Corpuscular Hemoglobin 30.9 pg (27.0-34.0); Mean Platelet Volume 8.6 fL (7.0-11.0); Platelet Count 261 th/mm3 (150-450); Red Blood Count 3.35 mil/mm3 (4.50-5.90); Red Cell Distribution Width 14.8 % (11.6-17.2); White Blood Count 6.6 th/mm3 (4.0-11.0)
[2018-02-09 05:35] LABS: Calcium 8.1 mg/dL (8.5-10.1); Carbon Dioxide 30.4 meq/L (21.0-32.0)
--- NOTE | 2018-02-09 08:39 | P.PNVS ---
Subjective Post Op Day #: 1 Procedure: Right brachiocephalic AV fistula creation Subjective/Hospital Course: 32/M with kidney disease on HD Pt s/p Right brachiocephalic AV fistula creation POD 1 Pt w/o complaints of hand pain Incision intact w/o R/D/S Palpable distal pulse noted Objective Vital Signs / I&O: Vital Signs 02/08/18 08:42 02/08/18 08:52 02/08/18 09:00 Temperature 98 F Pulse Rate 82 82 Respiratory Rate 17 Blood Pressure 144/95 H Pulse Oximetry 98 97 02/08/18 10:00 02/08/18 10:25 02/08/18 11:00 Temperature Pulse Rate 82 77 Respiratory Rate Blood Pressure Pulse Oximetry 97 02/08/18 11:19 02/08/18 14:05 02/08/18 14:15 Temperature 98 F 98.2 F Pulse Rate 77 79 80 Respiratory Rate 17 16 15 Blood Pressure 138/92 H 129/87 129/85 Pulse Oximetry 100 100 95 02/08/18 14:30 02/08/18 14:45 02/08/18 16:00 Temperature Pulse Rate 81 80 80 Respiratory Rate 16 15 Blood Pressure 127/76 128/77 Pulse Oximetry 96 97 02/08/18 16:06 02/08/18 17:00 02/08/18 18:00 Temperature 98 F Pulse Rate 78 82 82 Respiratory Rate 17 Blood Pressure 123/78 Pulse Oximetry 98 02/08/18 19:00 02/08/18 20:00 02/08/18 21:00 Temperature 97.9 F Pulse Rate 78 82 84 Respiratory Rate 16 Blood Pressure 115/61 Pulse Oximetry 98 02/08/18 22:00 02/08/18 23:00 02/09/18 00:00 Temperature 97.8 F Pulse Rate 80 92 H 75 Respiratory Rate 16 Blood Pressure 111/65 Pulse Oximetry 95 02/09/18 01:00 02/09/18 02:00 02/09/18 03:00 Temperature Pulse Rate 75 76 75 Respiratory Rate Blood Pressure Pulse Oximetry 02/09/18 04:00 02/09/18 05:00 02/09/18 06:00 Temperature 98.6 F Pulse Rate 84 84 84 Respiratory Rate 16 Blood Pressure 133/87 Pulse Oximetry 95 02/09/18 07:00 02/09/18 07:44 Temperature 98.4 F Pulse Rate 84 81 Respiratory Rate 17 Blood Pressure 131/78 Pulse Oximetry 98 Intake & Output 02/08/18 02/09/18 02/09/18 18:59 06:59 18:59 Intake Total 1080 / 1080 680 / 680 Output Total 395 / 395 Balance 685 / 685 680 / 680 Weight 65 kg Intake: Oral 480 / 480 680 / 680 Anesthesia Amount 600 / 600 Output: Urine 375 / 375 Estimated Blood Loss Other: # Voids 1 Date of Last Bowel Movement 02/07/18 02/07/19 Exam: + thrill near AVF No hand pain Incision intact palpable right and left radial pulse Laboratory Results - last 24 hr 02/05/18 02/08/18 02/09/18 12:11 20:20 04:48 WBC 6.6 RBC 3.35 L Hgb 10.3 L Hct 30.8 L MCV 92.0 MCH 30.9 MCHC 33.6 RDW 14.8 Plt Count 261 MPV 8.6 Sodium Potassium Chloride Carbon Dioxide Anion Gap BUN Creatinine Estimated GFR Random Glucose Calcium Anti-Proteinase 3 Less than 1.0 Anti-Myeloperoxidase Less than 1.0 Hepatitis A IgM Ab Nonreactive Hep Bs Antigen Nonreactive Hep B Core IgM Ab Nonreactive Hep C IgG Ab Nonreactive 02/09/18 04:48 WBC RBC Hgb Hct MCV MCH MCHC RDW Plt Count MPV Sodium 136 Potassium 4.0 Chloride 97 L Carbon Dioxide 30.4 Anion Gap 9 BUN 51 H Creatinine 7.25 H Estimated GFR 11 L Random Glucose 104 Calcium 8.1 L Anti-Proteinase 3 Anti-Myeloperoxidase Hepatitis A IgM Ab Hep Bs Antigen Hep B Core IgM Ab Hep C IgG Ab Assessment and Plan - Plan 32 yo male with new onset HD needs likely from HTN Pt s/p Right brachiocephalic AV fistula creation POD 1 Pt w/o complaints Pain controlled No hand pain Palpable thrill Plan Pt clear for d/c from a vascular stand point Continue RIGHT arm precautions- No B/P readings or lab draws Discussed and reviewed out pt care and management of AVF w/ pt Arranged out pt f/u Laisha Cornejo NP [facility] [phone]
--- NOTE | 2018-02-09 08:58 | P.PNIM ---
Subjective Interval history: Patient reports he is feeling okay today. Has some mild discomfort at the surgical site. Otherwise no new complaints. Physical Exam Vital signs: Last Vital Signs Temp 98.4 F 02/09/18 07:44 Pulse 81 02/09/18 07:44 Resp 17 02/09/18 07:44 BP 131/78 02/09/18 07:44 Pulse Ox 98 02/09/18 07:44 Intake & Output 02/07/18 02/08/18 02/09/18 02/10/18 06:59 06:59 06:59 06:59 Intake Total 1060 / 1060 1440 / 1440 1760 / 1760 Output Total 900 / 900 3000 / 3000 395 / 395 Balance 160 / 160 -1560 / -1560 1365 / 1365 Weight 65.5 kg 65 kg 65 kg Narrative: GENERAL: This is a well-nourished, well-developed patient, in no apparent distress. CARDIOVASCULAR: Normal rate and regular rhythm without murmurs, gallops, or rubs. RESPIRATORY: Good respiratory efforts. Breath sounds equal and clear to auscultation bilaterally. GASTROINTESTINAL: Abdomen soft, non-tender, non-distended. Normal active bowel sounds MUSCULOSKELETAL: Right upper extremity AV surgical site of bleeding clean. Distal pulses intact. Extremities without cyanosis, or edema. NEURO: Alert & Oriented x4 to person, place, time, situation. Moves all ext x4 PSYCH: Appropriate mood and affect. Results Labs CBC & Chem 7: 02/09/18 04:48 02/09/18 04:48 Assessment and Plan (1) Acute renal failure: Code(s): N17.9 - Acute kidney failure, unspecified Status: Acute (2) Hypopotassemia: Code(s): E87.6 - Hypokalemia Status: Acute (3) Hypertensive emergency: Code(s): I16.1 - Hypertensive emergency Status: Acute Plan 32-year-old black male was admitted with hypertensive emergency to the ICU with fulminant acute renal failure. Underwent dialysis with improvement in his blood pressures. Hypertensive emergency Blood pressure normalized but it appears that he has end-organ damage to his kidneys requiring dialysis -Continue oral antihypertensives. Continue hydralazine, losartan, labetalol, and clonidine. Adjust antihypertensives as needed. New onset/diagnosed end-stage renal disease Nephrology following, patient has a Vas-Cath, he is status post AV fistula placement on the right on 02/08/18 -Need set up for outpatient hemodialysis. Discussed with case management who is in contact with the dialysis center. Awaiting for a chair time. Hypokalemia: Resolved. Discharge planning: Patient can be discharged home as soon as outpatient dialysis is arranged. Discussed with case management. Progress Note: Quality VTE Deep Vein Thrombosis/Pulmonary Embolism Present on Admission: No _ (1) Acute renal failure Qualifiers: Acute renal failure type: unspecified Qualified Code(s): N17.9 - Acute kidney failure, unspecified
[2018-02-09] MEDS: Senna/Docusate Sodium 8.6/50 MG Tablet PO SCH ×2 (11:38→21:30)
[2018-02-09] MEDS: Calcium Acetate 667 MG Capsule PO SCH ×3 (11:38→17:19)
[2018-02-09] MEDS: hydrALAZINE 25 MG Tablet PO SCH ×3 (11:38→17:19)
[2018-02-09] MEDS: Labetalol 100 MG Tablet PO SCH ×3 (11:39→21:29)
[2018-02-09] MEDS: Heparin 10,000 UNITS/10 ML Vial (for IV use) OTHER PRN (11:40)
--- NOTE | 2018-02-09 12:38 | P.PNNP ---
Addendum entered and electronically signed by Gelacio Rosenbaum APRN 02/09/18 14:47: Patient can be discharged. Patient set up to receive dialysis at [facility] TTS at 3pm. Patient needs to go to [facility] tomorrow to sign consents. Patient and nurse were notified. Original Note: Subjective Interval history: Patient was seen, no distress, no complaints. Patient dialyzed today, 2 L removed. Patient gets dialysis TTS. Outpatient dialysis being set up at [facility]. Patient can be discharged from a renal standpoint once this is set up. Patient is not getting a renal biopsy. <Gelacio Rosenbaum - Last Filed: 02/09/18 12:38> Physical Exam Vital signs: Vital Signs 02/08/18 14:05 02/08/18 14:15 02/08/18 14:30 Temperature 98.2 F Pulse Rate 79 80 81 Respiratory Rate 16 15 16 Blood Pressure 129/87 129/85 127/76 Pulse Oximetry 100 95 96 02/08/18 14:45 02/08/18 16:00 02/08/18 16:06 Temperature 98 F Pulse Rate 80 80 78 Respiratory Rate 15 17 Blood Pressure 128/77 123/78 Pulse Oximetry 97 98 02/08/18 17:00 02/08/18 18:00 02/08/18 19:00 Temperature Pulse Rate 82 82 78 Respiratory Rate Blood Pressure Pulse Oximetry 02/08/18 20:00 02/08/18 21:00 02/08/18 22:00 Temperature 97.9 F Pulse Rate 82 84 80 Respiratory Rate 16 Blood Pressure 115/61 Pulse Oximetry 98 02/08/18 23:00 02/09/18 00:00 02/09/18 01:00 Temperature 97.8 F Pulse Rate 92 H 75 75 Respiratory Rate 16 Blood Pressure 111/65 Pulse Oximetry 95 02/09/18 02:00 02/09/18 03:00 02/09/18 04:00 Temperature 98.6 F Pulse Rate 76 75 84 Respiratory Rate 16 Blood Pressure 133/87 Pulse Oximetry 95 02/09/18 05:00 02/09/18 06:00 02/09/18 07:00 Temperature Pulse Rate 84 84 84 Respiratory Rate Blood Pressure Pulse Oximetry 02/09/18 07:44 Temperature 98.4 F Pulse Rate 81 Respiratory Rate 17 Blood Pressure 131/78 Pulse Oximetry 98 Intake & Output 02/08/18 02/09/18 02/09/18 18:59 06:59 18:59 Intake Total 1080 / 1080 680 / 680 Output Total 395 / 395 1999 Balance 685 / 685 680 / 680 -1999 Weight 65 kg Intake: Oral 480 / 480 680 / 680 Anesthesia Amount 600 / 600 Output: Urine 375 / 375 Hemodialysis Amount 1999 Estimated Blood Loss Other: # Voids 1 Date of Last Bowel Movement 02/07/18 02/07/19 <Gelacio Rosenbaum - Last Filed: 02/09/18 12:38> Vital signs: Vital Signs 02/08/18 23:00 02/09/18 00:00 02/09/18 01:00 Temperature 97.8 F Pulse Rate 92 H 75 75 Respiratory Rate 16 Blood Pressure 111/65 Pulse Oximetry 95 02/09/18 02:00 02/09/18 03:00 02/09/18 04:00 Temperature 98.6 F Pulse Rate 76 75 84 Respiratory Rate 16 Blood Pressure 133/87 Pulse Oximetry 95 02/09/18 05:00 02/09/18 06:00 02/09/18 07:00 Temperature Pulse Rate 84 84 84 Respiratory Rate Blood Pressure Pulse Oximetry 02/09/18 07:44 02/09/18 13:00 02/09/18 14:00 Temperature 98.4 F 98 F Pulse Rate 81 84 86 Respiratory Rate 17 17 Blood Pressure 131/78 156/112 H Pulse Oximetry 98 98 02/09/18 15:00 02/09/18 16:00 02/09/18 17:00 Temperature Pulse Rate 78 80 86 Respiratory Rate Blood Pressure Pulse Oximetry 02/09/18 17:15 02/09/18 18:39 Temperature 97.9 F Pulse Rate 81 83 Respiratory Rate 17 Blood Pressure 116/63 Pulse Oximetry 99 Intake & Output 02/09/18 02/09/18 02/10/18 06:59 18:59 06:59 Intake Total 680 / 680 480 / 480 Output Total 2350 / 2350 Balance 680 / 680 -1869 Weight 65 kg Intake: Oral 680 / 680 480 / 480 Output: Urine 350 / 350 Hemodialysis Amount 1999 Other: # Voids 1 2 Date of Last Bowel Movement 02/07/19 <Deejay Whitten - Last Filed: 02/09/18 22:28> Assessment and Plan - Assessment (1) Acute renal failure Code(s): N17.9 - Acute kidney failure, unspecified Status: Acute Qualifiers: Acute renal failure type: unspecified Qualified Code(s): N17.9 - Acute kidney failure, unspecified Plan: Patient appears to have ESRD. Currently getting dialysis TTS. We have no baseline lab work for the patient. Hypertensive crisis could be due to renal failure or acute renal failure could be due to malignant hypertension. Patient gets dialysis TTS. s/p AVF placement with Dr. Lombardo. Patient dialyzed today, 2 L removed. Outpatient dialysis being set up at [facility]. Patient can be discharged from a renal standpoint once this is set up. Patient is not getting a renal biopsy. Monitor fluid and electrolytes. (2) Hypopotassemia Code(s): E87.6 - Hypokalemia Status: Acute Plan: Potassium improved with dialysis. (3) Hypertensive emergency Code(s): I16.1 - Hypertensive emergency Status: Acute Plan: Patient given IVP Metoprolol in the ED. Was on Cleviprex drip but has been discontinued. On Clonidine, Hydralazine, and Labetalol. BP has improved. Monitor BP. <Gelacio Rosenbaum - Last Filed: 02/09/18 12:38> - Assessment (1) Acute renal failure Code(s): N17.9 - Acute kidney failure, unspecified Status: Acute Qualifiers: Acute renal failure type: unspecified Qualified Code(s): N17.9 - Acute kidney failure, unspecified (2) Hypopotassemia Code(s): E87.6 - Hypokalemia Status: Acute (3) Hypertensive emergency Code(s): I16.1 - Hypertensive emergency Status: Acute - Attending Attestation patient was seen and examined. Agree with above assessment and plan. Seen during dialysis earlier in the day. <Deejay Whitten - Last Filed: 02/09/18 22:28>
[2018-02-09] MEDS: Vitamin B Complex/Vit C/Folic Tablet PO SCH (13:01)
[2018-02-09] MEDS: Heparin - SQ 10,000 UNITS/ML Vial SQ SCH ×2 (13:09→21:30)
[2018-02-10 04:48] VITALS: TEMP 98.1
[2018-02-10 05:26] LABS: Baso # (Auto) 0.1 th/mm3 (0.0-0.2); Baso % (Auto) 1.4 % (0.0-2.0); Eos # (Auto) 0.2 th/mm3 (0.0-0.4); Eos % (Auto) 3.1 % (0.0-4.0); Hematocrit 31.5 % (39.0-51.0); Hemoglobin 10.7 gm/dL (13.0-17.0); Lymph # (Auto) 1.3 th/mm3 (1.0-4.8); Lymph % (Auto) 21.1 % (9.0-44.0); Mean Corpuscular HGB Conc 34.1 % (32.0-36.0); Mean Corpuscular Hemoglobin 30.8 pg (27.0-34.0); Mean Corpuscular Volume 90.3 fL (80.0-100.0); Mono # (Auto) 0.6 th/mm3 (0.0-0.9); Mono % (Auto) 9.7 % (0.0-8.0); Neut # (Auto) 4.1 th/mm3 (1.8-7.7); Neut % (Auto) 64.7 % (16.0-70.0); Platelet Count 305 th/mm3 (150-450); Red Blood Count 3.49 mil/mm3 (4.50-5.90); Red Cell Distribution Width 14.7 % (11.6-17.2); White Blood Count 6.4 th/mm3 (4.0-11.0)
[2018-02-10 05:51] LABS: Calcium 8.7 mg/dL (8.5-10.1); Carbon Dioxide 31.2 meq/L (21.0-32.0); Phosphorus 5.1 mg/dL (2.5-4.9); Potassium 3.6 meq/L (3.5-5.1)
[2018-02-10] MEDS: Labetalol 100 MG Tablet PO SCH (09:23)
[2018-02-10] MEDS: hydrALAZINE 25 MG Tablet PO SCH (09:26)
[2018-02-10] MEDS: Senna/Docusate Sodium 8.6/50 MG Tablet PO SCH (09:26)
[2018-02-10] MEDS: Heparin - SQ 10,000 UNITS/ML Vial SQ SCH (09:26)
--- NOTE | 2018-02-10 09:26 | P.DS ---
DS: Providers Date of admission: 02/01/18 10:17 Primary care physician: No Primary Care Physician Consults: 02/01/18 10:17 Consult to Nephrology Routine Consulting Provider: Deejay Whitten Does the patient have a Weapons Mechanic who follows them?: No Preferred Nephrology Log Chipper Operator:: Coating Manager Physician Reason for Consultation: Patient admitted with a creatinine is 7.5. New onset. Hypertensive emergency. Notified:: Service Spoke with:: MEME Date Notified:: 02/01/18 Time Notified:: 10:28 Ordering Provider: CITLALY 02/05/18 13:00 Consult to Hospitalist Routine Consulting Provider: Madeline Pena Reason for Consultation: Of care in a.m. 02/06. Admission with hypertensive crisis. Acute renal failure on hemodialysis. Notified:: Service Spoke with:: ange Date Notified:: 02/05/18 Time Notified:: 13:09 Ordering Provider: CITLALY 02/06/18 11:13 Consult to Vascular Surgery Routine Consulting Provider: Rafael Lombardo Preferred Log Chipper Operator:: Rafael Lombardo Patient known to:: Deejay Whitten Reason for Consultation: AVF placement. Notified:: Physician Spoke with:: Dr Lombardo Date Notified:: 02/06/18 Time Notified:: 11:17 Ordering Provider: CHOLO Brief History from admission: HPI as documented by the admitting physician: This is a 32-year-old AA male. Date of admission 02/01/2018. Past medical history includes EtOH and smoking. Patient is on no medications. For the past 2-3 weeks patient has been experiencing generalized malaise including headaches , chest pain, shortness of breath vague abdominal pain. Patient presented to [facility] for further evaluation treatment. Upon arrival, patient had elevated systolic blood pressure in the 260s diastolic in the 180s. Received 3 doses of 2.5 mg of IV metoprolol. EKG revealed sinus tachycardia with significant LVH. 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 He has potassium of 2.5. Creatinine of 7.5. Troponin 0 0.19. Patient is thrombocytopenic. Patient systolic blood pressure is currently 230. He still expressing malaise. We are estimate the patient. Nephrology consult. Echocardiogram and renal ultrasound all currently pending. DS: Diagnosis Discharge Diagnosis (1) Acute renal failure: Status: Acute (2) Hypopotassemia: Status: Acute (3) Hypertensive emergency: Status: Acute DS: Summary 32-year-old black male was admitted with hypertensive emergency to the ICU with fulminant acute renal failure. Underwent dialysis with improvement in his blood pressures. Renal functions did not recover and he requires hemodialysis. Hypertensive emergency Blood pressure normalized but he has end-organ damage to his kidneys requiring dialysis -Continue oral antihypertensives. Continue hydralazine, losartan, labetalol, and clonidine. Prescriptions sent to the patient pharmacy New onset/diagnosed end-stage renal disease Nephrology following, patient has a Vas-Cath, he is status post AV fistula placement on the right on 02/08/18 -Outpatient HD setup - PPD checked and was negative. - Viral hepatitis profile is negative. Hypokalemia: Resolved. Patient is discharged in good condition. He is to follow up outpatient with Nephrology, PCP and Vascular surgery. Time Spent with Patient Total time spent providing and/or coordinating discharge services: Quality: VTE Deep Vein Thrombosis/Pulmonary Embolism Present on Admission: No Exam Narrative Exam Narrative: Narrative: GENERAL: This is a well-nourished, well-developed patient, in no apparent distress. CARDIOVASCULAR: Normal rate and regular rhythm without murmurs, gallops, or rubs. RESPIRATORY: Good respiratory efforts. Breath sounds equal and clear to auscultation bilaterally. GASTROINTESTINAL: Abdomen soft, non-tender, non-distended. Normal active bowel sounds MUSCULOSKELETAL: Right upper extremity AV surgical site of bleeding clean. Distal pulses intact. Extremities without cyanosis, or edema. NEURO: Alert & Oriented x4 to person, place, time, situation. Moves all ext x4 PSYCH: Appropriate mood and affect. Results Labs on day of discharge: Labs from last 24 hours 02/10/18 02/10/18 04:44 04:44 WBC 6.4 RBC 3.49 L Hgb 10.7 L Hct 31.5 L MCV 90.3 MCH 30.8 MCHC 34.1 RDW 14.7 Plt Count 305 MPV 9.0 Neut % (Auto) 64.7 Lymph % (Auto) 21.1 Schley % (Auto) 9.7 H Eos % (Auto) 3.1 Baso % (Auto) 1.4 Neut # (Auto) 4.1 Lymph # (Auto) 1.3 Schley # (Auto) 0.6 Eos # (Auto) 0.2 Baso # (Auto) 0.1 WBC Differential . Differential Comment Auto diff final Sodium 136 Potassium 3.6 Chloride 98 Carbon Dioxide 31.2 Anion Gap 7 BUN 32 H Creatinine 5.78 H Estimated GFR 14 L Random Glucose 112 H Calcium 8.7 Phosphorus 5.1 H Impressions ITS Impressions Chest X-Ray 02/01/18 08:29 CONCLUSION: Under aerated with some peribronchial thickening. Inflammatory process is suspected. Head CT 02/01/18 09:03 CONCLUSION: 1. Negative for acute process . Abdomen/Bladder Ultrasound 02/01/18 10:21 CONCLUSION: 1. No hydronephrosis. 2. Mildly increased echogenicity indicate medical renal disease. Central Venous Line 02/03/18 00:00 CONCLUSION: 1. Uncomplicated PermaCath placement as above. Upper Extremity Ultrasound 02/06/18 00:00 CONCLUSION: 1. Venous mapping as above. 2. Nonvisualization of the veins in both upper extremities as above. Venous Doppler Study 02/06/18 00:00 CONCLUSION: 1. No deep venous thrombosis in the right arm. 2. Occlusive thrombus in the left basilic vein. Discharge Plan Discharge Disposition Patient Disposition: Discharge Home Discharge Condition Condition: Stable Discharge Order Discharge Orders: Discharge Order (Routine); Ordered 02/10/18 Ordered By: Andrei Madera Vascular Surgery Clear for Discharge (Routine); Ordered 02/09/18 Ordered By: Laisha Cornejo Physicians Team ED Provider: Sienna Sam Primary Care Provider: Primary Care Dariani,Kimberly Attending Provider: Andrei Madera Other Providers: Deejay Whitten ; Rafael Lombardo Rxs /Orders / Referrals /Forms Prescriptions: New hydrocodone-acetaminophen [[place]] 5-325 mg Tablet 1 tab PO Q4-6H PRN (Reason: pain) Qty: 18 RF: 0 losartan 50 mg Tablet 50 mg PO DAILY Qty: 30 RF: 0 clonidine HCl [[place]] 0.1 mg Tablet 0.1 mg PO Q12HR Qty: 60 RF: 0 hydralazine 25 mg Tablet 25 mg PO TID Qty: 90 RF: 0 labetalol 100 mg Tablet 300 mg PO BID Qty: 60 RF: 0 acetaminophen 325 mg Tablet 650 mg PO Q6H PRN (Reason: Pain) Qty: 10 RF: 0 Continue No Known Home Medications RF: 0 Referrals: Gio Kirkpatrick MD [Physician] - See Instructions (Your post op follow up is scheduled on 03/08/18 at 0900) Primary Care Kimberly Boyd [Primary Care Provider] - See Instructions Status ED Status: Left Department
[2018-02-10] MEDS: Vitamin B Complex/Vit C/Folic Tablet PO SCH (09:27)
[2018-02-10] MEDS: Calcium Acetate 667 MG Capsule PO SCH (09:27)
[2018-02-10 12:15] VITALS: BP 121/66; RESP 18; O2SAT 99
[2018-02-10 12:27] VITALS: PULSE 82
== END 2018-02-10 12:13 | disposition home or self-care (01) ==
LOC: NEPE 07:50 → NEDA 10:17 → HIMC 13:55 → HCPC 02-06 18:43
PROVIDERS: ADMIT Family Medicine; ATTEND Family Medicine
PROC: AVGFTUE (ICD-10-PCS; 2018-02-08 12:19)
DX: R51 Headache; E87.6 Hypokalemia; R74.0 Nonspecific elevation of levels of transaminase and lactic acid dehydrogenase [LDH]; R74.8 Abnormal levels of other serum enzymes; I16.1 Hypertensive emergency; N17.9 Acute kidney failure, unspecified; N18.6 End stage renal disease; D69.6 Thrombocytopenia, unspecified; D72.829 Elevated white blood cell count, unspecified; E87.1 Hypo-osmolality and hyponatremia; R06.02 Shortness of breath; D64.9 Anemia, unspecified; I12.0 Hypertensive chronic kidney disease with stage 5 chronic kidney disease or end stage renal disease; R50.9 Fever, unspecified; Z82.49 Family history of ischemic heart disease and other diseases of the circulatory system; F12.90 Cannabis use, unspecified, uncomplicated; R00.0 Tachycardia, unspecified